=== PATIENT | female | born 1945 | race African-American/Black ===

== ENCOUNTER 2016-03-01 11:12 | Emergency (ER) | payer MEDICARE, OTHER ==
[2016-03-01 11:28] VITALS: RESP 18; TEMP 97
--- NOTE | 2016-03-01 11:52 | ED ---
General Adult HPI - General Chief complaint: Neck Pain/Injury Stated complaint: MUSCLE SPASMS FROM NECK TO FOREHEAD Time Seen by Provider: 03/01/16 11:30 Source: patient, RN notes reviewed, old records reviewed Mode of arrival: ambulatory - History of Present Illness Initial comments: Chief complaint history of present illness 70-year-old female here with request for refill of her tramadol and Soma. Patient has had protocol his left side of the neck for approximately 6 or 7 weeks. Her family physician is unavailable for refills. No new injury or pain. - Related Data Home Medications Medication Instructions Recorded Confirmed DULoxetine HCL [Cymbalta] 60 mg PO DAILY 08/28/13 05/27/15 Cyclobenzaprine [Flexeril] 5 mg PO TID 09/24/13 05/27/15 HYDROcodone/APAP 10-325MG [[place] 1 tab PO Q6H PRN 05/27/15 05/27/15 10-325] PARoxetine HCL [Paxil] 20 mg PO DAILY 05/27/15 05/27/15 QUEtiapine [SEROquel] 50 mg PO HS PRN 05/27/15 05/27/15 Previous Rx's Medication Instructions Recorded clonazePAM [KlonoPIN] 1 mg PO BID #14 tab 02/08/15 traMADol HCl [Ultram] 50 mg PO Q4H PRN #20 tab 05/07/15 Acetaminophen Tab [Tylenol Tab] 650 mg PO Q6H PRN #20 tablet 05/27/15 traMADol HCl [Ultram] 50 mg PO Q8HR PRN #10 tab 05/27/15 Carisoprodol [Soma] 350 mg PO BID #20 tablet 03/01/16 traMADol HCl [Ultram] 50 mg PO Q6HR PRN #20 tab 03/01/16 Allergies Allergy/AdvReac Type Severity Reaction Status Date / Time iodine Allergy Unknown Verified 03/01/16 11:28 shellfish derived [Shellfish] Allergy Unknown Verified 03/01/16 11:28 Review of Systems ROS Statement: Those systems with pertinent positive or pertinent negative responses have been documented in the HPI. Review of systems no headache or visual acuity changes. The patient has discomfort along the left trapezius muscle. No chest pain no shortness of breath no GI/ problems no neuro deficits. All systems were otherwise reviewed. Past medical problems significant for torticollis for the past 6-8 weeks. Also GERD, osteoarthritis, chronic pain. The patient had a bowel resection and hernia repair and hemorrhoidectomy. Family history father had throat cancer. Patient has ALLERGIES to iodine and shellfish. She does smoke rarely, denies alcohol use. ROS Other: All systems not noted in ROS Statement are negative. Past Medical History Past Medical History: GERD/Reflux, Osteoarthritis (OA) Additional Past Medical History / Comment(s): chronic pain, hemerrhoids, gastric ulcer. History of Any Multi-Drug Resistant Organisms: None Reported Past Surgical History: Bowel Resection, Hernia Repair Additional Past Surgical History / Comment(s): hemerrhoidectomy Past Psychological History: Anxiety, Depression Smoking Status: Current every day smoker Past Alcohol Use History: Occasional Past Drug Use History: None Reported General Exam - General Exam Comments Initial Comments: General: The patient is awake and alert, complaining of discomfort to the left side of her neck, ongoing 6-8 weeks. Diagnosis torticollis by her family physician. Vital signs show temperature 97.0 pulse 94 respiratory rate 18 pulse ox 99% room air blood pressure 139/59. Mildly elevated systolic noted the patient will be following up with her family physician once his office opens again. Eye: Pupils are equal, extra-ocular movements are intact; there is normal conjunctiva bilaterally. No signs of icterus. Ears, nose, mouth and throat: There are moist mucous membranes . Neck: Left-sided musculoskeletal discomfort. Torticollis. Discomfort increases when she looks hard to the left. No palpable lymphadenopathy no masses or rash. Cardiovascular: There is a regular rate and rhythm. No murmur, rub or gallop is appreciated. Respiratory: Lungs are clear to auscultation, respirations are non-labored, breath sounds are equal. No wheezes, stridor, rales, or rhonchi. Gastrointestinal: Soft, non-distended, non-tender abdomen without masses or organomegaly noted. There is no rebound or guarding present. No CVA tenderness. Bowel sounds are unremarkable. Patient is lactose intolerant Back: There is no tenderness to palpation in the midline. There is no obvious deformity. No rashes noted. Musculoskeletal: Normal ROM, no tenderness, There is no pedal edema. There is no calf tenderness or swelling. Neurological: No neuro deficits. Denies difficulty walking no weakness. Skin: No rashes. Course Vital Signs 03/01/16 11:23 Temperature 97 F L Pulse Rate 94 Respiratory 18 Rate Blood Pressure 139/59 O2 Sat by Pulse 99 Oximetry Medical Decision Making - Medical Decision Making Medical decision-making. The patient will be treated with tramadol and Soma and advised to follow-up with family physician. Advised to use warm compress on the neck for relief of spasms. Return emergency room as needed Disposition Clinical Impression: Cervical muscle strain Disposition: HOME SELF-CARE Condition: Fair Instructions: Cervical Strain (ED) Additional Instructions: Take medications as directed, follow-up family physician, use warm compress on area discomfort. Return as needed Prescriptions: Carisoprodol [Soma] 350 mg PO BID #20 tablet traMADol HCl [Ultram] 50 mg PO Q6HR PRN #20 tab PRN Reason: Pain Time of Disposition: 11:52
[2016-03-01 12:11] VITALS: BP 129/68; PULSE 92
== END 2016-03-01 12:00 | disposition home or self-care (01) ==
LOC: EC 11:12
DX: S16.1XXA Strain of muscle, fascia and tendon at neck level, initial encounter (principal); X58.XXXA Exposure to other specified factors, initial encounter; M43.6 Torticollis; Z79.899 Other long term (current) drug therapy; Z88.8 Allergy status to other drugs, medicaments and biological substances; Z91.013 Allergy to seafood; F17.200 Nicotine dependence, unspecified, uncomplicated; M19.90 Unspecified osteoarthritis, unspecified site; G89.29 Other chronic pain; F41.9 Anxiety disorder, unspecified; F32.9 Major depressive disorder, single episode, unspecified
CPT/HCPCS: 99283

== ENCOUNTER 2016-03-14 12:09 | Emergency (ER) | payer MEDICARE, OTHER ==
--- NOTE | 2016-03-14 12:49 | ED ---
Neck Injury/Pain HPI - General Chief Complaint: Neck Pain/Injury Stated Complaint: neck pain Time Seen by Provider: 03/14/16 12:38 Mode of arrival: ambulatory Limitations: no limitations - History of Present Illness Initial Comments: 70-year-old female complains of pain in her neck for the last 2 weeks, and reviewing her ER note from earlier this month as stated for 6-7 weeks prior to that. She's been on Soma and tramadol. She states she's had no relief. Hurts to bend her neck forward. No focal numbness or weakness. No recalled injury. She just woke up with it one morning. She has no nausea no vomiting no fever chills. States she has been in generally good health. - Related Data Home Medications Medication Instructions Recorded Confirmed DULoxetine HCL [Cymbalta] 60 mg PO DAILY 08/28/13 03/14/16 HYDROcodone/APAP 10-325MG [[place] 1 tab PO Q6H PRN 05/27/15 03/14/16 10-325] QUEtiapine [SEROquel] 50 mg PO HS PRN 05/27/15 03/14/16 Previous Rx's Medication Instructions Recorded clonazePAM [KlonoPIN] 1 mg PO BID #14 tab 02/08/15 Acetaminophen Tab [Tylenol Tab] 650 mg PO Q6H PRN #20 tablet 05/27/15 Carisoprodol [Soma] 350 mg PO BID #20 tablet 03/01/16 traMADol HCl [Ultram] 50 mg PO Q6HR PRN #20 tab 03/01/16 Carisoprodol [Soma] 350 mg PO TID #21 tablet 03/14/16 Dexamethasone 0.75 mg PO DIRECTED #18 tab 03/14/16 Allergies Allergy/AdvReac Type Severity Reaction Status Date / Time iodine Allergy Unknown Verified 03/14/16 12:17 shellfish derived [Shellfish] Allergy Unknown Verified 03/14/16 12:17 Review of Systems ROS Statement: Those systems with pertinent positive or pertinent negative responses have been documented in the HPI. ROS Other: All systems not noted in ROS Statement are negative. Constitutional: Denies: fever, chills, weakness Eyes: Denies: eye discharge ENT: Denies: ear pain, throat pain Respiratory: Denies: cough Cardiovascular: Denies: chest pain Gastrointestinal: Denies: nausea, vomiting Genitourinary: Denies: urgency, dysuria, frequency Musculoskeletal: Denies: joint swelling Skin: Denies: rash Neurological: Denies: headache Psychiatric: Denies: anxiety, depression Hematological/Lymphatic: Denies: easy bleeding, easy bruising Past Medical History Past Medical History: GERD/Reflux, Osteoarthritis (OA) Additional Past Medical History / Comment(s): chronic pain, hemerrhoids, gastric ulcer. History of Any Multi-Drug Resistant Organisms: None Reported Past Surgical History: Bowel Resection, Hernia Repair Additional Past Surgical History / Comment(s): hemerrhoidectomy Past Psychological History: Anxiety, Depression Smoking Status: Current some day smoker Past Alcohol Use History: Occasional Past Drug Use History: None Reported General Exam Limitations: no limitations Head exam: Present: atraumatic Eye exam: Present: normal appearance, PERRL, EOMI. Absent: scleral icterus ENT exam: Present: normal oropharynx, mucous membranes moist, TM's normal bilaterally Neck exam: Present: tenderness, full ROM (Pain on forward bending less pain on straightening) Respiratory exam: Present: normal lung sounds bilaterally Cardiovascular Exam: Present: normal heart sounds Neurological exam: Present: alert, CN II-XII intact Psychiatric exam: Present: normal affect, normal mood Skin exam: Present: warm, dry Course Vital Signs 03/14/16 12:15 Temperature 98.1 F Pulse Rate 78 Respiratory 20 Rate Blood Pressure 117/54 O2 Sat by Pulse 100 Oximetry Medical Decision Making - Medical Decision Making Discussed with patient she would prefer to have a muscle relaxer over pain medicine was used Decadron and suggested she see her primary care doctor for an MRI and perhaps physical therapy. - Radiology Data Radiology results: report reviewed Moderate to advanced spondylitic changes throughout the cervical spine particularly from C4 through C7 levels. There is also degenerative grade 1 anterolisthesis at C7-T1. Overall, findings have progressed from 2012. #2 variable moderate neural foraminal stenosis in the lower cervical spine. Disposition Clinical Impression: Cervical disc disease Disposition: HOME SELF-CARE Condition: Good Instructions: Degenerative Disc Disease (ED) Additional Instructions: Apply heat for half an hour every 4 hours as needed Prescriptions: Carisoprodol [Soma] 350 mg PO TID #21 tablet Dexamethasone 0.75 mg PO DIRECTED #18 tab Time of Disposition: 13:55
--- NOTE | 2016-03-14 13:28 | XR ---
EXAMINATION TYPE: XR cervical spine comp DATE OF EXAM: 03/14/2016 1:14 PM COMPARISON: 02/15/2012 HISTORY: 70-year-old female with left-sided neck pain today TECHNIQUE: 6 views FINDINGS: The predental space widening or prevertebral soft tissue swelling. There is moderate disc/endplate de generative change particularly from C4 through C7 levels with disc interspace narrowing, endplate scl erosis, and endplate spondylosis. Facet and uncovertebral joint arthropathy throughout especially low er lumbar spine area there is redemonstration of grade 1 anterolisthesis at C7-T1 secondary to facet arthropathy. On the left, there is at least moderate bony spondylotic neuroforaminal narrowing at C6-C7 and probab ly also at C7-T1 no there is limited obliquity for assessment. On the right, there is at least modera te bony spondylotic neuroforaminal narrowing at C5-C6, C6-C7, C7-T1. Normal odontoid view. Degenerative changes appear progressed from 2011. IMPRESSION: 1. Moderate to advanced spondylotic change throughout the cervical spine particularly from C4 through C7 levels. There is also degenerative grade 1 anterolisthesis at C7-T1. Overall, findings have progr essed from 2012. 2. Variable moderate neuroforaminal stenoses in the lower cervical spine.
[2016-03-14 14:10] VITALS: BP 159/86; PULSE 76; RESP 18; TEMP 98.4
== END 2016-03-14 14:10 | disposition home or self-care (01) ==
LOC: EC 12:09
DX: M50.920 Unspecified cervical disc disorder, mid-cervical region, unspecified level (principal); M19.90 Unspecified osteoarthritis, unspecified site; F32.9 Major depressive disorder, single episode, unspecified; F41.9 Anxiety disorder, unspecified; F17.200 Nicotine dependence, unspecified, uncomplicated; Z79.899 Other long term (current) drug therapy; Z88.8 Allergy status to other drugs, medicaments and biological substances
CPT/HCPCS: 72050; 99283

== ENCOUNTER 2017-01-25 14:57 | Emergency (ER) | payer MEDICARE, OTHER ==
--- NOTE | 2017-01-25 16:31 | ED ---
ENT HPI - General Chief complaint: ENT Stated complaint: ear ache/sore throat Time Seen by Provider: 01/25/17 15:48 Source: patient, RN notes reviewed Mode of arrival: ambulatory Limitations: no limitations - History of Present Illness Initial comments: This is a 71-year-old female who presents to the emergency department with chief complaint of left ear pain and sore throat. Patient states that her left ear has been throbbing since before Thanksgiving. She states that her throat feels "scratchy." She also complains of chills and lack of energy. She states that she has had a headache which she has been treating with Excedrin Migraine. She denies fevers, congestion, cough, shortness of breath, abdominal pain, nausea or vomiting, diarrhea or constipation, dysuria or hematuria, numbness or tingling, or vision changes. - Related Data Home Medications Medication Instructions Recorded Confirmed DULoxetine HCL [Cymbalta] 60 mg PO HS 08/28/13 12/30/16 HYDROcodone/APAP 10-325MG [[place] 1 tab PO Q6H PRN 05/27/15 12/30/16 10-325] QUEtiapine [SEROquel] 50 mg PO HS 05/27/15 12/30/16 clonazePAM [KlonoPIN] 0.5 mg PO HS 11/15/16 12/30/16 Baclofen [Lioresal] 10 mg PO TID PRN 12/30/16 12/30/16 Previous Rx's Medication Instructions Recorded Lidocaine [Lidoderm 5% Patch] 1 patch TRANSDERM DAILY #7 patch 12/30/16 Ciprofloxacin HCl/Dexameth 4 drops LEFT EAR BID 7 Days 01/25/17 [Ciprodex Otic Suspension] Allergies Allergy/AdvReac Type Severity Reaction Status Date / Time iodine Allergy Unknown Verified 01/25/17 15:05 shellfish derived [Shellfish] Allergy Unknown Verified 01/25/17 15:05 Review of Systems ROS Statement: Those systems with pertinent positive or pertinent negative responses have been documented in the HPI. ROS Other: All systems not noted in ROS Statement are negative. Past Medical History Past Medical History: GERD/Reflux, Osteoarthritis (OA) Additional Past Medical History / Comment(s): chronic pain, hemorrhoids, gastric ulcer. History of Any Multi-Drug Resistant Organisms: None Reported Past Surgical History: Bowel Resection, Hernia Repair Additional Past Surgical History / Comment(s): hemorrhoidectomy Past Psychological History: Anxiety, Depression Smoking Status: Current every day smoker Past Alcohol Use History: None Reported Past Drug Use History: None Reported General Exam - General Exam Comments Initial Comments: General: Awake and alert, well-developed; in no apparent distress. HEENT: Head atraumatic, normocephalic. Pupils are equal, round and reactive to light. Extraocular movements intact. Oropharynx moist without erythema or exudate. Inflammation of left external canal noted. TM difficult to evaluate due to the inflammation. Left tragal tenderness and tenderness with retraction of pinna noted. Right TM is pearly without effusion. Neck: Supple. Normal ROM. Cardiovascular: Regular rate and rhythm. No murmurs, rubs or gallops. Chest symmetrical. Respiratory: Lungs clear to auscultation bilaterally. No wheezes, rales or rhonchi. Normal respiratory effort with no use of accessory muscles. Musculoskeletal: Normal ROM, no tenderness bilateral upper and lower extremities. Ambulating normally. Skin: [place], warm and dry without rashes or lesions. Neurological: Alert and oriented x3. CN II-XII grossly intact. Speech is fluent and answers are appropriate. No focal neuro deficits. Psychiatric: Normal mood and affect. No overt signs of depression or anxiety noted. Limitations: no limitations Course Vital Signs 01/25/17 15:03 Temperature 97.7 F Pulse Rate 98 Respiratory 20 Rate Blood Pressure 112/53 O2 Sat by Pulse 100 Oximetry Medical Decision Making - Medical Decision Making This is a 71-year-old female presents emergency Department chief complaint of sore throat and left ear pain. Left external canal is inflamed. Difficult to assess TM due to the inflammation. Oropharynx is moist without erythema. Vital signs are stable and patient is afebrile. She is in no acute distress. Patient will be discharged home with ear drops to treat otitis externa. Patient is in agreement with plan voices understand. All questions were answered. Disposition Clinical Impression: Otitis externa Disposition: HOME SELF-CARE Condition: Good Instructions: Otitis Externa (ED) Additional Instructions: Please take medications as prescribed. Please follow up with primary care provider within 1-2 days. Return to emergency department if symptoms should worsen or any concerns arise. Prescriptions: Ciprofloxacin HCl/Dexameth [Ciprodex Otic Suspension] 4 drops LEFT EAR BID 7 Days Referrals: Markus Nicole MD [Primary Care Provider] - 1-2 days Time of Disposition: 16:33
[2017-01-25 16:40] VITALS: BP 126/67; PULSE 92; RESP 18; TEMP 97.8
== END 2017-01-25 16:39 | disposition home or self-care (01) ==
LOC: EC 14:57
DX: H60.92 Unspecified otitis externa, left ear (principal); F17.200 Nicotine dependence, unspecified, uncomplicated; F32.9 Major depressive disorder, single episode, unspecified; F41.9 Anxiety disorder, unspecified; Z91.013 Allergy to seafood; Z91.048 Other nonmedicinal substance allergy status; Z79.899 Other long term (current) drug therapy
CPT/HCPCS: 99282

== ENCOUNTER 2017-01-30 09:17 | Emergency (ER) | payer MEDICARE, OTHER ==
[2017-01-30 09:22] VITALS: TEMP 97
[2017-01-30] MEDS ORDERED: traMADol 50 MG TAB PO STA (09:54)
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
[2017-01-30 11:02] VITALS: BP 136/62; PULSE 82; RESP 16
== END 2017-01-30 11:02 | disposition home or self-care (01) ==
LOC: EC 09:17
DX: S52.502A Unspecified fracture of the lower end of left radius, initial encounter for closed fracture (principal); K21.9 Gastro-esophageal reflux disease without esophagitis; M19.90 Unspecified osteoarthritis, unspecified site; F32.9 Major depressive disorder, single episode, unspecified; F41.9 Anxiety disorder, unspecified; F17.200 Nicotine dependence, unspecified, uncomplicated; Z79.899 Other long term (current) drug therapy; Z88.8 Allergy status to other drugs, medicaments and biological substances; Z91.013 Allergy to seafood; W22.8XXA Striking against or struck by other objects, initial encounter
CPT/HCPCS: 29125; 99283

== ENCOUNTER 2017-07-25 17:16 | Emergency (ER) | payer MEDICARE, OTHER ==
[2017-07-25 17:25] VITALS: PULSE 82; RESP 16; TEMP 97.1
--- NOTE | 2017-07-25 17:28 | ED ---
General Adult HPI - General Chief complaint: Abdominal Pain Stated complaint: hemorrhoid Time Seen by Provider: 07/25/17 17:21 Source: patient, EMS, RN notes reviewed Mode of arrival: EMS Limitations: no limitations - History of Present Illness Initial comments: This is a 72-year-old female who presents to the emergency department with chief complaint hemorrhoids. Patient states that she has a history of hemorrhoids. She states that she was taught how to reinsert them back into her rectum when they fall out. She states that yesterday she had a normal bowel movement but that her hemorrhoids fell out. She states this is the first time they have fallen out since March. She states she was able to reduce it manually. She states that today they fell out again while trying to have a bowel movement. She states that she was passing liquid stool and a pinkish color. Denies any active bleeding. She reports some rectal pressure. She states that she took Colace yesterday. Denies nausea or vomiting, diarrhea or constipation, fevers or chills, chest pain or shortness of breath. Patient reports that she also has a headache. She states that she took Motrin this morning and it helped. - Related Data Home Medications Medication Instructions Recorded Confirmed HYDROcodone/APAP 10-325MG [[place] 1 tab PO Q6H PRN 05/27/15 02/21/17 10-325] QUEtiapine [SEROquel] 50 mg PO HS 05/27/15 02/21/17 clonazePAM [KlonoPIN] 0.5 mg PO BID PRN 11/15/16 02/21/17 DULoxetine HCL [Cymbalta] 60 mg PO HS 01/30/17 02/21/17 Gabapentin [Neurontin] 300 mg PO BID 01/30/17 02/21/17 Omeprazole [PriLOSEC] 20 mg PO DAILY 01/30/17 02/21/17 Allergies Allergy/AdvReac Type Severity Reaction Status Date / Time iodine Allergy Anaphylaxis Verified 02/21/17 08:49 shellfish derived [Shellfish] Allergy Anaphylaxis Verified 02/21/17 08:49 Review of Systems ROS Statement: Those systems with pertinent positive or pertinent negative responses have been documented in the HPI. ROS Other: All systems not noted in ROS Statement are negative. Past Medical History Past Medical History: GERD/Reflux, Osteoarthritis (OA) Additional Past Medical History / Comment(s): chronic pain, hemorrhoids, gastric ulcer. History of Any Multi-Drug Resistant Organisms: None Reported Past Surgical History: Bowel Resection, Hernia Repair Additional Past Surgical History / Comment(s): hemorrhoidectomy Past Psychological History: Anxiety, Depression Smoking Status: Current every day smoker Past Alcohol Use History: None Reported Past Drug Use History: None Reported General Exam - General Exam Comments Initial Comments: General: Awake and alert, well-developed; in no apparent distress. HEENT: Head atraumatic, normocephalic. Pupils are equal, round and reactive to light. Extraocular movements intact. Oropharynx moist without erythema or exudate. Neck: Supple. Normal ROM. Cardiovascular: Regular rate and rhythm. No murmurs, rubs or gallops. Chest symmetrical. Respiratory: Lungs clear to auscultation bilaterally. No wheezes, rales or rhonchi. Normal respiratory effort with no use of accessory muscles. Abdomen: Soft, non-tender, non-distended. No rigidity, rebound or guarding. Normal bowel sounds in all 4 quadrants. Musculoskeletal: Normal ROM, no tenderness bilateral upper and lower extremities. Skin: [place], warm and dry without rashes or lesions. Neurological: Alert and oriented x3. CN II-XII grossly intact. Speech is fluent and answers are appropriate. No focal neuro deficits. Psychiatric: Normal mood and affect. No overt signs of depression or anxiety noted. Limitations: no limitations Rectal exam: Present: normal rectal tone, hemorrhoids (likely internal. no thrombosis or firmness noted. no active bleeding.), other (no rectal prolapse ) Course Vital Signs 07/25/17 17:20 Temperature 97.1 F L Pulse Rate 82 Respiratory 16 Rate Blood Pressure 149/76 O2 Sat by Pulse 98 Oximetry Medical Decision Making - Medical Decision Making This is a 72-year-old female presents to the emergency department with chief complaint hemorrhoids. Patient has been dealing with hemorrhoids for a while now. She states that yesterday and today followed while trying to have a bowel movement. She states that she was taught how to manually reduce them. She states that she was able to successfully reduce them. She states she is concerned because they have not fallen out since March. On physical examination, no thrombosed hemorrhoids are noted. Hemorrhoids are already reduced by patient. Recommended taking Colace daily and applying witch marybel. Recommended high-fiber foods and drinking lots of water. Patient will be given contact information for on-call surgeon. She is in agreement with plan and voices understanding. All questions answered. She'll be discharged home at this time. She is in no acute distress. Disposition Clinical Impression: Hemorrhoid Disposition: HOME SELF-CARE Condition: Good Instructions: Hemorrhoids (ED) Additional Instructions: Please take Colace daily. Please increase water intake and eat high fiber foods. Please follow up with Dr. Patel, general surgeon. Please follow up with primary care provider within 1-2 days. Return to emergency department if symptoms should worsen or any concerns arise. Is patient prescribed a controlled substance at d/c from ED?: No Referrals: Markus Nicole MD [Primary Care Provider] - 1-2 days Time of Disposition: 17:44
[2017-07-25] MEDS ORDERED: IBUPROFEN 600 MG TAB PO STA (17:39)
[2017-07-25] MEDS ORDERED: traMADol 50 MG TAB PO STA (18:16)
[2017-07-25 18:53] VITALS: BP 140/78
== END 2017-07-25 18:37 | disposition home or self-care (01) ==
LOC: EC 17:16
DX: K64.9 Unspecified hemorrhoids (principal); R51 Headache; K21.9 Gastro-esophageal reflux disease without esophagitis; M19.90 Unspecified osteoarthritis, unspecified site; F41.9 Anxiety disorder, unspecified; F32.9 Major depressive disorder, single episode, unspecified; F17.200 Nicotine dependence, unspecified, uncomplicated; Z90.49 Acquired absence of other specified parts of digestive tract; Z98.890 Other specified postprocedural states; Z79.899 Other long term (current) drug therapy; Z91.013 Allergy to seafood; Z91.048 Other nonmedicinal substance allergy status
CPT/HCPCS: 99284

== ENCOUNTER 2017-12-31 08:48 | Emergency (ER) | payer MEDICARE, OTHER ==
[2017-12-31 08:54] VITALS: BP 120/58; PULSE 94; RESP 18; TEMP 98.8
--- NOTE | 2017-12-31 09:19 | ED ---
URI HPI - General Chief Complaint: Upper Respiratory Infection Stated Complaint: Congestion Time Seen by Provider: 12/31/17 08:59 Source: patient, RN notes reviewed Mode of arrival: ambulatory Limitations: no limitations - History of Present Illness Initial Comments: 72-year-old female presents emergency Department with chief complaint of left ear pain cough and congestion. Patient states that she's had some discomfort in her right ear for a couple weeks after riding a bus back from [place]. Patient states that she felt that the cold air blowing on her ear bothered it. Patient states that she also has had some cough and congestion. Patient states that she put some hydrogen peroxide in her left ear and put some paper in her ear she states that she may have left and or fell out. Patient denies any pain behind the ear denies headache, dizziness, neck pain. Patient denies any drainage from her ear. Patient states she just feels plugged. Patient has sore throat, nasal congestion. She does have a cough and noticed some wheezing. Patient states she does have COPD. Patient denies any chest pain, nausea vomiting diarrhea, constipation. - Related Data Home Medications Medication Instructions Recorded Confirmed HYDROcodone/APAP 10-325MG [[place] 1 tab PO Q6H PRN 05/27/15 02/21/17 10-325] QUEtiapine [SEROquel] 50 mg PO HS 05/27/15 02/21/17 clonazePAM [KlonoPIN] 0.5 mg PO BID PRN 11/15/16 02/21/17 DULoxetine HCL [Cymbalta] 60 mg PO HS 01/30/17 02/21/17 Gabapentin [Neurontin] 300 mg PO BID 01/30/17 02/21/17 Omeprazole [PriLOSEC] 20 mg PO DAILY 01/30/17 02/21/17 Previous Rx's Medication Instructions Recorded Azithromycin [Zithromax Z-pack] 0 mg PO DIRECTED #1 pack 12/31/17 Ofloxacin 0.3% Otic Soln [Floxin 10 drops LEFT EAR BID #10 ml 12/31/17 0.3% Otic Soln] predniSONE 50 mg PO DAILY #5 tab 12/31/17 Allergies Allergy/AdvReac Type Severity Reaction Status Date / Time iodine Allergy Anaphylaxis Verified 12/31/17 09:31 shellfish derived [Shellfish] Allergy Anaphylaxis Verified 12/31/17 09:31 Review of Systems ROS Statement: Those systems with pertinent positive or pertinent negative responses have been documented in the HPI. ROS Other: All systems not noted in ROS Statement are negative. Past Medical History Past Medical History: GERD/Reflux, Osteoarthritis (OA) Additional Past Medical History / Comment(s): chronic pain, hemorrhoids, gastric ulcer. History of Any Multi-Drug Resistant Organisms: None Reported Past Surgical History: Bowel Resection, Hernia Repair Additional Past Surgical History / Comment(s): hemorrhoidectomy Past Psychological History: Anxiety, Depression Smoking Status: Current every day smoker Past Alcohol Use History: None Reported Past Drug Use History: None Reported General Exam Limitations: no limitations General appearance: alert, in no apparent distress Head exam: Present: atraumatic, normocephalic, normal inspection Eye exam: Present: normal appearance, PERRL, EOMI. Absent: scleral icterus, conjunctival injection, periorbital swelling ENT exam: Present: normal oropharynx, mucous membranes moist, TM's normal bilaterally, normal external ear exam. Absent: normal exam, other (Mild erythema of the left EAC, no mastoid tenderness) Neck exam: Present: normal inspection, full ROM. Absent: tenderness, meningismus, lymphadenopathy Respiratory exam: Present: wheezes (faint). Absent: normal lung sounds bilaterally, respiratory distress, rales, rhonchi, stridor Cardiovascular Exam: Present: regular rate, normal rhythm, normal heart sounds. Absent: systolic murmur, diastolic murmur, rubs, gallop, clicks GI/Abdominal exam: Present: soft, normal bowel sounds. Absent: distended, tenderness, guarding, rebound, rigid Back exam: Absent: CVA tenderness (R), CVA tenderness (L) Neurological exam: Present: alert, oriented X3, CN II-XII intact Skin exam: Present: warm, dry, intact, normal color. Absent: rash Course Vital Signs 12/31/17 08:51 Temperature 98.8 F Pulse Rate 94 Respiratory 18 Rate Blood Pressure 120/58 O2 Sat by Pulse 97 Oximetry Medical Decision Making - Medical Decision Making 72-year-old female presented for multiple complaints. Patient has a mild erythema of the left EAC. She does not have any mastoid tenderness no concern for mastoiditis. Patient will be given ofloxacin eardrops and was placed on azithromycin along with prednisone for her cough and chest congestion. She does have some underlying COPD and does have mild exacerbation. Patient will have follow-up in 1-2 days return for any worsening symptoms. Disposition Clinical Impression: Otitis externa, Acute bronchitis Disposition: HOME SELF-CARE Condition: Stable Instructions: Upper Respiratory Infection (ED) Additional Instructions: Please return to the Emergency Department if symptoms worsen or any other concerns. Prescriptions: Azithromycin [Zithromax Z-pack] 0 mg PO DIRECTED #1 pack Ofloxacin 0.3% Otic Soln [Floxin 0.3% Otic Soln] 10 drops LEFT EAR BID #10 ml predniSONE 50 mg PO DAILY #5 tab Is patient prescribed a controlled substance at d/c from ED?: No Referrals: Markus Nicole MD [Primary Care Provider] - 1-2 days Time of Disposition: 09:42
--- NOTE | 2017-12-31 09:36 | XR ---
EXAMINATION TYPE: XR chest 2V DATE OF EXAM: 12/31/2017 COMPARISON: 11/15/2016 INDICATION: Cough, pain TECHNIQUE: Frontal and lateral views of the chest are obtained. FINDINGS: The heart size is normal. The pulmonary vasculature is normal. The lungs are clear. IMPRESSION: 1. No acute pulmonary process.
[2017-12-31] MEDS ORDERED: traMADol 50 MG STARTER PACK 3 TAB BTL PO STA (10:08)
== END 2017-12-31 10:20 | disposition home or self-care (01) ==
LOC: EC 08:48
DX: J44.0 Chronic obstructive pulmonary disease with (acute) lower respiratory infection (principal); J44.1 Chronic obstructive pulmonary disease with (acute) exacerbation; J20.9 Acute bronchitis, unspecified; H60.92 Unspecified otitis externa, left ear; K21.9 Gastro-esophageal reflux disease without esophagitis; F32.9 Major depressive disorder, single episode, unspecified; F41.9 Anxiety disorder, unspecified; F17.200 Nicotine dependence, unspecified, uncomplicated; Z91.013 Allergy to seafood; Z91.048 Other nonmedicinal substance allergy status; Z79.899 Other long term (current) drug therapy
CPT/HCPCS: 71046; 99284

== ENCOUNTER → 2017-12-31 | Outpatient (CLI) | payer MEDICARE, OTHER ==
--- NOTE | 2018-01-03 12:13 | MM ---
Reason for exam: screening (asymptomatic). Last mammogram was performed 1 year ago. History: Patient is postmenopausal. Family history of breast cancer in sister. Benign excisional biopsy of the left breast, 1998. Physical Findings: A clinical breast exam by your physician is recommended on an annual basis and results should be correlated with mammographic findings. MG 3D Screening Mammo W/Cad Bilateral CC and MLO view(s) were taken. Prior study comparison: December 30, 2016, left breast MG 3d work up w/cad LT. December 24, 2016, bilateral MG 3d screening mammo w/cad. The breast tissue is heterogeneously dense. This may lower the sensitivity of mammography. No significant changes when compared with prior studies. ASSESSMENT: Benign, BI-RAD 2 RECOMMENDATION: Routine screening mammogram of both breasts in 1 year.
== END | disposition home or self-care (01) ==
LOC: RADMAMWWP 08:28
PROVIDERS: ATTEND Family Medicine
DX: Z12.31 Encounter for screening mammogram for malignant neoplasm of breast (principal)
CPT/HCPCS: 77063; 77067

== ENCOUNTER 2018-04-27 22:52 | Emergency (ER) | payer MEDICARE, OTHER ==
[2018-04-27 23:05] VITALS: RESP 20
[2018-04-27] MEDS ORDERED: HYDROcodone/APAP 10-325MG 1 EACH TAB PO ONE (23:16)
--- NOTE | 2018-04-28 | CT ---
EXAM: CT Head Without Intravenous Contrast CLINICAL HISTORY: ITS.REASON CT Reason: Pain TECHNIQUE: Axial computed tomography images of the head/brain without intravenous contrast. CTDI is 45 mGy and DLP is 1079 mGy-cm. This CT exam was performed using one or more of the following dose reduction techniques: automated exposure control, adjustment of the mA and/or kV according to patient size, and/or use of iterative reconstruction technique. COMPARISON: No relevant prior studies available. FINDINGS: Brain: No hemorrhage. No edema. Ventricles: Unremarkable. No ventriculomegaly. Bones/joints: No acute fracture. Soft tissues: Unremarkable. Sinuses: No fluid levels. Mastoid air cells: Unremarkable as visualized. No mastoid effusion. IMPRESSION: No acute intracranial findings EXAM: CT Cervical Spine Without Intravenous Contrast CLINICAL HISTORY: ITS.REASON CT Reason: Pain TECHNIQUE: Axial computed tomography images of the cervical spine without intravenous contrast. This CT exam was performed using one or more of the following dose reduction techniques: automated exposure control, adjustment of the mA and/or kV according to patient size, and/or use of iterative reconstruction technique. COMPARISON: No relevant prior studies available. FINDINGS: Vertebrae: No acute fracture. Discs/spinal canal/neural foramina: No suspicious findings. Soft tissues: Unremarkable. IMPRESSION: No acute findings.
--- NOTE | 2018-04-28 00:13 | XR ---
EXAM: XR Lumbar Spine, 2 or 3 Views CLINICAL HISTORY: ITS.REASON XR Reason: Pain TECHNIQUE: Frontal and lateral views of the lumbar spine. COMPARISON: No relevant prior studies available. FINDINGS: Vertebrae: Unremarkable. No acute fracture. Normal alignment. Disc spaces: No suspicious findings. No significant narrowing. Soft tissues: Unremarkable. IMPRESSION: Normal lumbar spine x-rays.
[2018-04-28] MEDS ORDERED: METHOCARBAMOL 500 MG TAB PO STA (00:50)
--- NOTE | 2018-04-28 01:09 | ED ---
Fall HPI - General Chief Complaint: Fall Stated Complaint: fall Time Seen by Provider: 04/27/18 22:58 Source: patient Mode of arrival: EMS - History of Present Illness Initial Comments: Is a 73-year-old female with a history of chronic neck and lower back pain who presents emergency department for posterior head pain, neck pain, and lower back pain. The patient states that yesterday around 11 PM a dog jumped up and hit her in the face with its cough. It did not hurt to the ground and she didn' t hit the back of her head and neck. She states that she did not lose consciousness per she was able to get up and ambulate and was in real to her throughout the day today with her walker. She was taking her [place] at home which seemed to relieve her symptoms however she ran out this evening and the pain returned so she decided come to the department. She denies any numbness, tingling, or weakness in her upper or lower extremities. She denies any severe headache however does admit to some posterior head pain and right jaw pain. She denies any extremity injuries. No chest pain or shortness of breath. No vision changes. No other acute complaints. - Related Data Home Medications Medication Instructions Recorded Confirmed HYDROcodone/APAP 10-325MG [[place] 1 tab PO Q6H PRN 05/27/15 04/27/18 10-325] QUEtiapine [SEROquel] 50 mg PO HS 05/27/15 04/27/18 clonazePAM [KlonoPIN] 0.5 mg PO BID PRN 11/15/16 04/27/18 DULoxetine HCL [Cymbalta] 60 mg PO HS 01/30/17 04/27/18 Gabapentin [Neurontin] 300 mg PO BID 01/30/17 04/27/18 Omeprazole [PriLOSEC] 20 mg PO DAILY 01/30/17 04/27/18 Previous Rx's Medication Instructions Recorded HYDROcodone/APAP 5-325MG [[place] 1 tab PO Q6HR PRN 3 Days #8 tab 04/28/18 5-325] Methocarbamol [Robaxin] 500 mg PO QID PRN #15 tab 04/28/18 Allergies Allergy/AdvReac Type Severity Reaction Status Date / Time iodine Allergy Anaphylaxis Verified 04/27/18 23:39 shellfish derived [Shellfish] Allergy Anaphylaxis Verified 04/27/18 23:39 Review of Systems ROS Statement: Those systems with pertinent positive or pertinent negative responses have been documented in the HPI. ROS Other: All systems not noted in ROS Statement are negative. Past Medical History Past Medical History: COPD, GERD/Reflux, Osteoarthritis (OA) Additional Past Medical History / Comment(s): chronic pain, hemorrhoids, gastric ulcer. History of Any Multi-Drug Resistant Organisms: None Reported Past Surgical History: Bowel Resection, Hernia Repair Additional Past Surgical History / Comment(s): hemorrhoidectomy Past Psychological History: Anxiety, Depression Smoking Status: Current every day smoker Past Alcohol Use History: None Reported Past Drug Use History: None Reported General Exam - General Exam Comments Initial Comments: Constitutional: Awake alert Appears comfortable Head: Normocephalic atraumatic Eyes: no conjunctival injection No scleral icterus EOMI, pupils are 4 mm and reactive bilaterally Neck: No JVD Supple, no midline tenderness on examination, the patient has full range of motion actively Heart: Regular rate rhythm normal S1-S2 no murmurs Lungs: Clear to auscultation bilaterally No wheezing No rales Abdomen: Soft nondistended nontender Extremities: Non edematous DP pulses intact Radial pulses intact, patient has tenderness to her lumbar spine and paralumbar region Neuro: A&Ox3, 5 out of 5 strength in bilateral lower extremities and upper extremities, sensation intact to light touch in all extremities No focal neurologic deficits Psych: Appropriate mood and affect Limitations: no limitations Course Vital Signs 04/27/18 22:59 Temperature 97.9 F Pulse Rate 63 Respiratory 20 Rate Blood Pressure 119/55 O2 Sat by Pulse 97 Oximetry Medical Decision Making - Medical Decision Making This is a 73-year-old female who presents emergency department for posterior head pain, neck pain, lower back pain. She had CT of the head and neck that were unremarkable. X-ray of her lumbar spine was unremarkable. Patient was given [place] 10 mg which improved her symptoms however she still had some discomfort and thus a Robaxin was given. The patient had relief after this. I discussed the results with the patient explained that she likely irritated some old injuries in her spine. I did tell her that since she is not able to get a refill on her [place] until 2 days from now that I would give her enough to get her to her primary doctor's appointment in 2 days. I also gave her Robaxin. I do suspect that there is some drug-seeking behavior on the patient's behalf. She does inquire about Xanax and Klonopin quite often and was asking about increasing the dose of her [place]. I will leave that to the discretion of her primary doctor. Told her that she can return if she had worsening headache, or developed any weakness, numbness, or tingling in her extremities. Or any other acute complaints. Disposition Clinical Impression: Fall, Chronic pain Disposition: HOME SELF-CARE Condition: Stable Instructions (If sedation given, give patient instructions): Fall Prevention for Older Adults (ED) Prescriptions: HYDROcodone/APAP 5-325MG [[place] 5-325] 1 tab PO Q6HR PRN 3 Days #8 tab PRN Reason: Pain Methocarbamol [Robaxin] 500 mg PO QID PRN #15 tab PRN Reason: Muscle Spasms Is patient prescribed a controlled substance at d/c from ED?: Yes When asked, does pt state using other controlled substances?: Yes If prescribed controlled substance>3 days was MAPS reviewed?: Prescribed <3 Days If opioid is for acute pain is fill amount 7 days or less?: Yes Referrals: Markus Nicole MD [Primary Care Provider] - 1-2 days
[2018-04-28 01:54] VITALS: BP 115/61; PULSE 67; TEMP 97.7
== END 2018-04-28 02:02 | disposition home or self-care (01) ==
LOC: EC 22:52
DX: M54.5 Low back pain (principal); R51 Headache; M54.2 Cervicalgia; G89.29 Other chronic pain; F17.200 Nicotine dependence, unspecified, uncomplicated; K21.9 Gastro-esophageal reflux disease without esophagitis; F32.9 Major depressive disorder, single episode, unspecified; F41.9 Anxiety disorder, unspecified; Z79.899 Other long term (current) drug therapy; Z88.8 Allergy status to other drugs, medicaments and biological substances; Z91.013 Allergy to seafood; W19.XXXA Unspecified fall, initial encounter; Y92.009 Unspecified place in unspecified non-institutional (private) residence as the place of occurrence of the external cause
CPT/HCPCS: 70450; 72100; 72125; 99284

== ENCOUNTER 2018-07-11 14:27 | Inpatient (IN) | payer MEDICARE, OTHER ==
[2018-07-11] MEDS ORDERED: KETOROLAC 30 MG/ML 1 ML VIAL IVP STA (14:56)
[2018-07-11] MEDS ORDERED: SODIUM CHLORIDE 0.9% 500 ML 500 ML IV STA (14:56)
--- NOTE | 2018-07-11 15:02 | ED ---
General Adult HPI - General Chief complaint: Abdominal Pain Stated complaint: Side Pain Time Seen by Provider: 07/11/18 14:40 Source: patient, RN notes reviewed Mode of arrival: ambulatory - History of Present Illness Initial comments: 73-year-old female With a past medical history of chronic pain, hemorrhoids, COPD, GERD, gastric ulcer, bowel resection, hernia repair presents to the emergency department for chief complaint of right sided abdominal pain 4 days. Patient states it is a sharp pain mostly in the right upper quadrant. States it worsens when she coughs but denies any chest pain or shortness of breath. Denies any pain with breathing. Patient states that she tried to eat breakfast today but this made the pain worsen. Denies nausea or vomiting. Patient denies fevers or chills. Denies any history of gallbladder dysfunction. Patient states she is having normal bowel movements with the last bowel movement being earlier today. Denies hematochezia or melena. Does admit that her appetite has decreased since this pain started.Patient has no other complaints at this time including shortness of breath, chest pain, abdominal pain, nausea or vomiting, headache, or visual changes. - Related Data Home Medications Medication Instructions Recorded Confirmed clonazePAM [KlonoPIN] 0.5 mg PO BID PRN 11/15/16 07/11/18 DULoxetine HCL [Cymbalta] 60 mg PO HS 01/30/17 07/11/18 Gabapentin [Neurontin] 300 mg PO BID 01/30/17 07/11/18 Previous Rx's Medication Instructions Recorded HYDROcodone/APAP 5-325MG [[place] 1 tab PO Q6HR PRN 3 Days #8 tab 04/28/18 5-325] Allergies Allergy/AdvReac Type Severity Reaction Status Date / Time iodine Allergy Anaphylaxis Verified 07/11/18 14:43 shellfish derived [Shellfish] Allergy Anaphylaxis Verified 07/11/18 14:43 Review of Systems ROS Statement: Those systems with pertinent positive or pertinent negative responses have been documented in the HPI. ROS Other: All systems not noted in ROS Statement are negative. Past Medical History Past Medical History: COPD, GERD/Reflux, Osteoarthritis (OA) Additional Past Medical History / Comment(s): chronic pain, hemorrhoids, gastric ulcer. History of Any Multi-Drug Resistant Organisms: None Reported Past Surgical History: Bowel Resection, Hernia Repair Additional Past Surgical History / Comment(s): hemorrhoidectomy Past Psychological History: Anxiety, Depression Smoking Status: Current every day smoker Past Alcohol Use History: None Reported Past Drug Use History: None Reported General Exam General appearance: alert, in no apparent distress Head exam: Present: atraumatic, normocephalic, normal inspection Eye exam: Present: normal appearance, PERRL, EOMI. Absent: scleral icterus, conjunctival injection, periorbital swelling ENT exam: Present: normal exam, mucous membranes moist Neck exam: Present: normal inspection, full ROM. Absent: tenderness, meningismus, lymphadenopathy Respiratory exam: Present: normal lung sounds bilaterally. Absent: respiratory distress, wheezes, rales, rhonchi, stridor Cardiovascular Exam: Present: regular rate, normal rhythm, normal heart sounds. Absent: systolic murmur, diastolic murmur, rubs, gallop, clicks GI/Abdominal exam: Present: soft, tenderness (Right upper and lower abdominal t enderness. Tenderness is worse in the right upper quadrant with mild voluntary guarding.), normal bowel sounds. Absent: distended, guarding, rebound, rigid Expanded GI/Abdominal exam: Present: Deleon's sign. Absent: heel tap sign, Rovsing's sign Neurological exam: Present: alert, oriented X3, CN II-XII intact Psychiatric exam: Present: normal affect, normal mood Skin exam: Present: warm, dry, intact, normal color. Absent: rash Course Vital Signs 07/11/18 14:29 Temperature 98.0 F Pulse Rate 78 Respiratory 20 Rate Blood Pressure 155/80 O2 Sat by Pulse 98 Oximetry Medical Decision Making - Medical Decision Making 73-year-old female presents for right upper quadrant pain 4 days. States pain worsened after she ate breakfast today. On exam patient does have tenderness of the right upper quadrant with a positive Deleon sign. No significant abdominal tenderness elsewhere in the abdomen. CBC is unremarkable, white blood cell count is 4.1. CMP does show a calcium of 10.3, an AST of 43, ALP of 140, lipase 320. Bilirubin 0.4. Urine negative. Urine does not show evidence of infection. Ultrasound the right upper quadrant shows no hydronephrosis of the right kidney or masses seen. However there is multiple folds of the gallbladder with probable tumefactive sludge and a dilated common bile duct. Therefore patient will be admitted for further investigation and management. - Lab Data Result diagrams: 07/11/18 15:07 07/11/18 15:07 Lab Results 07/11/18 07/11/18 07/11/18 Range/Units 15:07 15:07 15:07 WBC 4.1 (3.8-10.6) k/uL RBC 4.18 (3.80-5.40) m/uL Hgb 12.2 (11.4-16.0) gm/dL Hct 39.7 (34.0-46.0) % MCV 94.9 (80.0-100.0) fL MCH 29.2 (25.0-35.0) pg MCHC 30.8 L (31.0-37.0) g/dL RDW 15.4 (11.5-15.5) % Plt Count 315 (150-450) k/uL Neutrophils % 42 % Lymphocytes % 42 % Monocytes % 5 % Eosinophils % 5 % Basophils % 1 % Neutrophils # 1.7 (1.3-7.7) k/uL Lymphocytes # 1.8 (1.0-4.8) k/uL Monocytes # 0.2 (0-1.0) k/uL Eosinophils # 0.2 (0-0.7) k/uL Basophils # 0.0 (0-0.2) k/uL PT 10.4 (9.0-12.0) sec INR 1.0 (<1.2) Sodium 143 (137-145) mmol/L Potassium 3.8 (3.5-5.1) mmol/L Chloride 111 H (98-107) mmol/L Carbon Dioxide 23 (22-30) mmol/L Anion Gap 9 mmol/L BUN 8 (7-17) mg/dL Creatinine 0.67 (0.52-1.04) mg/dL Est GFR (CKD-EPI)AfAm >90 (>60 ml/min/1.73 sqM) Est GFR (CKD-EPI)NonAf 87 (>60 ml/min/1.73 sqM) Glucose 75 (74-99) mg/dL Plasma Lactic Acid Maxi (0.7-2.0) mmol/L Calcium 10.3 H (8.4-10.2) mg/dL Total Bilirubin 0.4 (0.2-1.3) mg/dL AST 43 H (14-36) U/L ALT 39 (9-52) U/L Alkaline Phosphatase 140 H (38-126) U/L Total Protein 7.8 (6.3-8.2) g/dL Albumin 4.8 (3.5-5.0) g/dL Amylase 94 (30-110) U/L Lipase 320 H (23-300) U/L Urine Color Urine Appearance (Clear) Urine pH (5.0-8.0) Ur Specific [place] (1.001-1.035) Urine Protein (Negative) Urine Glucose (UA) (Negative) Urine Ketones (Negative) Urine Blood (Negative) Urine Nitrite (Negative) Urine Bilirubin (Negative) Urine Urobilinogen (<2.0) mg/dL Ur Leukocyte Esterase (Negative) Urine RBC (0-5) /hpf Urine WBC (0-5) /hpf Ur Squamous Epith Cells (0-4) /hpf Urine Bacteria (None) /hpf Urine Mucus (None) /hpf 07/11/18 07/11/18 Range/Units 15:07 15:30 WBC (3.8-10.6) k/uL RBC (3.80-5.40) m/uL Hgb (11.4-16.0) gm/dL Hct (34.0-46.0) % MCV (80.0-100.0) fL MCH (25.0-35.0) pg MCHC (31.0-37.0) g/dL RDW (11.5-15.5) % Plt Count (150-450) k/uL Neutrophils % % Lymphocytes % % Monocytes % % Eosinophils % % Basophils % % Neutrophils # (1.3-7.7) k/uL Lymphocytes # (1.0-4.8) k/uL Monocytes # (0-1.0) k/uL Eosinophils # (0-0.7) k/uL Basophils # (0-0.2) k/uL PT (9.0-12.0) sec INR (<1.2) Sodium (137-145) mmol/L Potassium (3.5-5.1) mmol/L Chloride (98-107) mmol/L Carbon Dioxide (22-30) mmol/L Anion Gap mmol/L BUN (7-17) mg/dL Creatinine (0.52-1.04) mg/dL Est GFR (CKD-EPI)AfAm (>60 ml/min/1.73 sqM) Est GFR (CKD-EPI)NonAf (>60 ml/min/1.73 sqM) Glucose (74-99) mg/dL Plasma Lactic Acid Maxi 1.5 (0.7-2.0) mmol/L Calcium (8.4-10.2) mg/dL Total Bilirubin (0.2-1.3) mg/dL AST (14-36) U/L ALT (9-52) U/L Alkaline Phosphatase (38-126) U/L Total Protein (6.3-8.2) g/dL Albumin (3.5-5.0) g/dL Amylase (30-110) U/L Lipase (23-300) U/L Urine Color Yellow Urine Appearance Clear (Clear) Urine pH 5.5 (5.0-8.0) Ur Specific [place] 1.013 (1.001-1.035) Urine Protein Negative (Negative) Urine Glucose (UA) Negative (Negative) Urine Ketones 1+ H (Negative) Urine Blood Trace H (Negative) Urine Nitrite Negative (Negative) Urine Bilirubin Negative (Negative) Urine Urobilinogen <2.0 (<2.0) mg/dL Ur Leukocyte Esterase Negative (Negative) Urine RBC 3 (0-5) /hpf Urine WBC <1 (0-5) /hpf Ur Squamous Epith Cells <1 (0-4) /hpf Urine Bacteria Rare H (None) /hpf Urine Mucus Rare H (None) /hpf Disposition Clinical Impression: Dysfunctional gallbladder, Transaminitis Disposition: ADMITTED IP TO THIS HOSP Condition: Fair Is patient prescribed a controlled substance at d/c from ED?: No Referrals: Markus Nicole MD [Primary Care Provider] - 1-2 days Time of Disposition: 17:00
[2018-07-11 15:18] LABS: Basophils % (A) 1 %; Eosinophils # (A) 0.2 k/uL (0-0.7); Eosinophils % (A) 5 %; HCT 39.7 % (34.0-46.0); HGB 12.2 gm/dL (11.4-16.0); Lymphocytes # (A) 1.8 k/uL (1.0-4.8); Lymphocytes % (A) 42 %; MCH 29.2 pg (25.0-35.0); MCHC 30.8 g/dL (31.0-37.0); MCV 94.9 fL (80.0-100.0); Mean Platelet Volume 6.8; Monocytes # (A) 0.2 k/uL (0-1.0); Monocytes % (A) 5 %; Neutrophils # (A) 1.7 k/uL (1.3-7.7); Neutrophils % (A) 42 %; Platelet Count 315 k/uL (150-450); RBC 4.18 m/uL (3.80-5.40); RDW 15.4 % (11.5-15.5); WBC 4.1 k/uL (3.8-10.6)
[2018-07-11 15:23] LABS: Prothrombin Time 10.4 sec (9.0-12.0)
[2018-07-11 15:28] LABS: ALT 39 U/L (9-52); AST 43 U/L (14-36); Albumin 4.8 g/dL (3.5-5.0); Alkaline Phosphatase 140 U/L (38-126); Amylase 94 U/L (30-110); Anion Gap 9 mmol/L; Blood Urea Nitrogen 8 mg/dL (7-17); Calcium 10.3 mg/dL (8.4-10.2); Carbon Dioxide 23 mmol/L (22-30); Chloride 111 mmol/L (98-107); Glucose 75 mg/dL (74-99); Lipase 320 U/L (23-300); Potassium 3.8 mmol/L (3.5-5.1); Sodium 143 mmol/L (137-145); Total Bilirubin 0.4 mg/dL (0.2-1.3); Total Protein 7.8 g/dL (6.3-8.2)
[2018-07-11 15:54] LABS: Appearance,Urine Clear (Clear); Bacteria,Urine Rare /hpf; Bilirubin,Urine Negative (Negative); Blood,Urine Trace (Negative); Color,Urine Yellow; Glucose,Urine (UA) Negative (Negative); Ketones,Urine 1+ (Negative); Leukocyte Esterase,Urine Negative (Negative); Mucus,Urine Rare /hpf; Nitrite,Urine Negative (Negative); PH, Urine 5.5 (5.0-8.0); Protein,Urine Negative (Negative); RBC,Urine 3 /hpf (0-5); Specific Gravity,Urine 1.013 (1.001-1.035); Squamous Epithelial Cell,Urine <1 /hpf (0-4); Urobilinogen,Urine <2.0 mg/dL (<2.0); WBC,Urine <1 /hpf (0-5)
--- NOTE | 2018-07-11 16:34 | US ---
EXAMINATION TYPE: US abdomen limited DATE OF EXAM: 07/11/2018 COMPARISON: NONE CLINICAL HISTORY: Pain. RUQ pain x 4 days. EXAM MEASUREMENTS: Liver Length: 16.7 cm Gallbladder Wall: 0.19 cm CBD: 0.95 cm Right Kidney: 10.0 x 6.1 x 3.8 cm Pancreas: slightly obscured by gas. duct measures 2.4 mm. Liver: prominent vasculature and ducts. Gallbladder: Hypoechoic internal echoes seen suggestive of sludge. Multiple folds seen. Evidence for sonographic Deleon's sign: No CBD: appears dilated Right Kidney: No hydronephrosis or masses seen There is no ascites evident. IMPRESSION: Limited abdomen ultrasound. Probable tumefactive sludge within the gallbladder. Dilated c ommon bile duct, suggest gastroenterology consult
[2018-07-11] MEDS ORDERED: ONDANSETRON 4 MG/2 ML VIAL IVP PRN (17:00)
[2018-07-11] MEDS ORDERED: NALOXONE 0.4 MG/ML 1 ML VIAL IV PRN (17:00)
[2018-07-11] MEDS: HYDROmorphone 0.5 MG/0.5 ML SYRINGE IVP PRN ×3 (17:26→23:53)
[2018-07-11] MEDS: SODIUM CHLORIDE 0.9% 1,000 ML IV SCH (17:27)
[2018-07-11 20:02] VITALS: BMI 19.1
[2018-07-12] MEDS: SODIUM CHLORIDE 0.9% 1,000 ML IV SCH ×3 (04:21→20:06)
[2018-07-12] MEDS: HYDROmorphone 0.5 MG/0.5 ML SYRINGE IVP PRN ×5 (04:49→18:00)
--- NOTE | 2018-07-12 07:31 | P.HPIM ---
History of Present Illness H&P Date: 07/12/18 Chief Complaint: Right upper quadrant pain This is a history of physical 73-year-old black female with known history of chronic DJD who has for the last 2-3 days complaining of worse right upper quadrant pain. The patient was evaluated yesterday in the emergency room and sh own have significant biliary sludge on ultrasound. She is now admitted for possible cholecystectomy. No significant nausea or vomiting this morning. No hematemesis or hematochezia stated. Review of Systems Constitutional: Denies chills, Denies fever Eyes: denies blurred vision, denies pain Ears, nose, mouth and throat: Denies headache, Denies sore throat Cardiovascular: Denies chest pain, Denies shortness of breath Gastrointestinal: Reports as per HPI, Reports abdominal pain, Reports indigestion Genitourinary: Denies dysuria, Denies hematuria Musculoskeletal: Denies myalgias Past Medical History Past Medical History: COPD, GERD/Reflux, Osteoarthritis (OA) Additional Past Medical History / Comment(s): chronic pain, hemorrhoids, gastric ulcer. History of Any Multi-Drug Resistant Organisms: None Reported Past Surgical History: Bowel Resection, Hernia Repair Additional Past Surgical History / Comment(s): hemorrhoidectomy Past Anesthesia/Blood Transfusion Reactions: No Reported Reaction Past Psychological History: Anxiety, Depression Smoking Status: Current every day smoker Past Alcohol Use History: None Reported Past Drug Use History: None Reported - Past Family History Mother Family Medical History: No Reported History Additional Family Medical History / Comment(s): still living at age of 96 and gets around well. Father Family Medical History: Cancer Additional Family Medical History / Comment(s): lung cancer at age of 75 Medications and Allergies Home Medications Medication Instructions Recorded Confirmed Type clonazePAM [KlonoPIN] 0.5 mg PO BID PRN 11/15/16 07/11/18 History Gabapentin [Neurontin] 300 mg PO BID 01/30/17 07/11/18 History RX: DULoxetine HCL [Cymbalta] 60 mg PO HS 01/30/17 07/11/18 History HYDROcodone/APAP 5-325MG [[place] 1 tab PO Q6HR PRN 3 Days #8 tab 04/28/18 07/11/18 Rx 5-325] Allergies Allergy/AdvReac Type Severity Reaction Status Date / Time iodine Allergy Anaphylaxis Verified 07/11/18 14:43 shellfish derived [Shellfish] Allergy Anaphylaxis Verified 07/11/18 14:43 Physical Exam Vitals: Vital Signs Temp Pulse Pulse Resp BP BP Pulse Ox 07/12/18 05:10 98.2 F 70 20 159/77 96 07/11/18 21:05 97.9 F 73 20 155/78 98 07/11/18 18:44 97.5 F L 77 16 172/77 94 L 07/11/18 17:15 73 18 142/74 98 07/11/18 14:29 98.0 F 78 20 155/80 98 Intake and Output 07/11/18 07/12/18 07/12/18 22:59 06:59 14:59 Intake Total 0 0 Balance 0 0 Intake: Oral 0 0 Other: # Voids 3 - Constitutional General appearance: no acute distress, thin - EENT Eyes: EOMI - Neck Neck: no lymphadenopathy - Respiratory Respiratory: bilateral: CTA - Cardiovascular Rhythm: irregularly irregular Abnormal Heart Sounds: no S3 Gallop - Gastrointestinal General gastrointestinal: soft, no tenderness - Neurologic Neurologic: CNII-XII intact - Psychiatric Psychiatric: A&O x's 3, appropriate affect Results CBC & Chem 7: 07/11/18 15:07 07/11/18 15:07 Labs: Abnormal Lab Results - Last 24 Hours (Table) 07/11/18 07/11/18 07/11/18 Range/Units 15:07 15:07 15:30 MCHC 30.8 L (31.0-37.0) g/dL Chloride 111 H (98-107) mmol/L Calcium 10.3 H (8.4-10.2) mg/dL AST 43 H (14-36) U/L Alkaline Phosphatase 140 H (38-126) U/L Lipase 320 H (23-300) U/L Urine Ketones 1+ H (Negative) Urine Blood Trace H (Negative) Urine Bacteria Rare H (None) /hpf Urine Mucus Rare H (None) /hpf Thrombosis Risk Factor Assmnt - Choose All That Apply Each Factor Represents 1 point: Abnormal pulmonary function (COPD) Other Risk Factors: Yes Each Risk Factor Represents 3 Points: Age 75 years or older Other congenital or acquired thrombophilia - If yes, enter type in comment: No Thrombosis Risk Factor Assessment Total Risk Factor Score: 4 Thrombosis Risk Factor Assessment Level: Moderate Risk Assessment and Plan (1) Dysfunctional gallbladder Current Visit: Yes Status: Acute Code(s): K82.8 - OTHER SPECIFIED DISEASES OF GALLBLADDER SNOMED Code(s): 02353764 Plan: Await surgical evaluation for possible cholecystectomy. Reconcile medications once surgery consultation is complete. Check CBC and CMP in a.m. The patient is otherwise full code. Time with Patient: Greater than 30
--- NOTE | 2018-07-12 11:40 | P.CONS ---
History of Present Illness - Reason for Consult Consult date: 07/12/18 Abdominal pain biliary sludge Requesting physician: Markus Nicole - Chief Complaint Right upper quadrant abdominal pain - History of Present Illness 73-year-old female admitted with right upper quadrant abdominal pain 3-4 days duration without fever. Ultrasound probable tumefactive sludge dilated CBD 0.95 cm. White count 4.1. Hemoglobin 12.2. Platelets 315. INR 1.0. Total bilirubin 0.4. AST 43. ALT 39. AP 140. Lipase 320. No history of this type of pain. Denies jaundice or acholic stools. No weight loss. No history of alcoholism or known liver disorders. Morning chemistries pending. Review of Systems Constitutional: Denies fever, chills, sweats, weight gain, or loss. HEENT: Negative for migraines, blurred vision or loss, earaches, drainage, tinnitus, oral mucosal lesions, dysphagia, or odynophagia. CARDIAC: Negative for chest pain, arrhythmias, or palpitation. RESPIRATORY: Negative for shortness of breath, hemoptysis, cough, or sputum production. GI: See HPI for pertinent findings. : Negative for hematuria, urgency, frequency, polyuria, or dysuria. GYNc: Negative vaginal discharge. MUSCULOSKELETAL: Negative for muscle aches, swelling, arthritis, and arthralgias. NEUROLOGIC: Negative for stroke or TIA. ENDOCRINE: Negative for thyroid problems. SKIN: Negative for rash or itching. PSYCHIATRIC: Negative history for depression and anxiety Past Medical History Past Medical History: COPD, GERD/Reflux, Osteoarthritis (OA) Additional Past Medical History / Comment(s): chronic pain, hemorrhoids, gastric ulcer. History of Any Multi-Drug Resistant Organisms: None Reported Past Surgical History: Bowel Resection, Hernia Repair Additional Past Surgical History / Comment(s): hemorrhoidectomy Past Anesthesia/Blood Transfusion Reactions: No Reported Reaction Past Psychological History: Anxiety, Depression Smoking Status: Current every day smoker Past Alcohol Use History: None Reported Past Drug Use History: None Reported - Past Family History Mother Family Medical History: No Reported History Additional Family Medical History / Comment(s): still living at age of 96 and gets around well. Father Family Medical History: Cancer Additional Family Medical History / Comment(s): lung cancer at age of 75 Medications and Allergies Home Medications Medication Instructions Recorded Confirmed Type clonazePAM [KlonoPIN] 0.5 mg PO BID PRN 11/15/16 07/11/18 History DULoxetine HCL [Cymbalta] 60 mg PO HS 01/30/17 07/11/18 History Gabapentin [Neurontin] 300 mg PO BID 01/30/17 07/11/18 History HYDROcodone/APAP 5-325MG [[place] 1 tab PO Q6HR PRN 3 Days #8 tab 04/28/18 07/11/18 Rx 5-325] Allergies Allergy/AdvReac Type Severity Reaction Status Date / Time iodine Allergy Anaphylaxis Verified 07/11/18 14:43 shellfish derived [Shellfish] Allergy Anaphylaxis Verified 07/11/18 14:43 Physical Exam Vitals: Vital Signs Temp Pulse Pulse Resp BP BP Pulse Ox 07/12/18 05:10 98.2 F 70 20 159/77 96 07/11/18 21:05 97.9 F 73 20 155/78 98 07/11/18 18:44 97.5 F L 77 16 172/77 94 L 07/11/18 17:15 73 18 142/74 98 07/11/18 14:29 98.0 F 78 20 155/80 98 Intake and Output 07/11/18 07/12/18 07/12/18 22:59 06:59 14:59 Intake Total 0 0 Balance 0 0 Intake: Oral 0 0 Other: # Voids 3 1 General appearance: The patient is alert, oriented, in no acute distress. HET: Head is normocephalic and atraumatic. Pupils are equal and reactive. Oropharynx is clear without lesions. Neck: Supple without lymphadenopathy. Trachea midline. Heart: S1 S2. Regular rate and rhythm. Lungs: No crackles or wheezes are heard. Abdomen: Soft, mild right upper quadrant tenderness, nondistended with bowel sounds. No peritoneal signs. No palpable organomegaly or masses. Extremities: Normal skin color and turgor. No cyanosis, rash, ulceration, clu bbing, or edema. Radial and pedal pulses are 2/4 bilaterally. Neurological: No focal deficits. Strength and sensation are grossly intact. Results CBC & Chem 7: 07/11/18 15:07 07/11/18 15:07 Labs: Abnormal Lab Results - Last 24 Hours (Table) 07/11/18 07/11/18 07/11/18 Range/Units 15:07 15:07 15:30 MCHC 30.8 L (31.0-37.0) g/dL Chloride 111 H (98-107) mmol/L Calcium 10.3 H (8.4-10.2) mg/dL AST 43 H (14-36) U/L Alkaline Phosphatase 140 H (38-126) U/L Lipase 320 H (23-300) U/L Urine Ketones 1+ H (Negative) Urine Blood Trace H (Negative) Urine Bacteria Rare H (None) /hpf Urine Mucus Rare H (None) /hpf US - abdomen: report reviewed (Dr. Acevedo) Assessment and Plan (1) Right upper quadrant abdominal pain Narrative/Plan: 73-year-old female admitted with 4-5 day history of acute right upper quadrant abdominal pain with mild transaminitis and mild elevation of lipase 300 range ultrasound abdomen findings reporting tumefactive sludge CBD 0.9 cm with normal bilirubin. Underlying acute gallstone pancreatitis cannot be excluded. Current Visit: Yes Status: Acute Code(s): R10.11 - RIGHT UPPER QUADRANT PAIN SNOMED Code(s): 418314793 Plan: 1. General surgical consult for cholecystectomy evaluation. 2. ERCP not planned at this time considering bilirubin is normal we'll request CMP today as well as repeat lipase. If patient transaminases bilirubin worsen we'll proceed with MRCP. Diet per surgery. We'll follow with you. Thank you for this kind referral and the opportunity to participate in the care of your patient. This consultation was discussed with Dr. Acevedo. The impression and plan of care have been directed as dictated.
[2018-07-12 12:29] LABS: ALT 30 U/L (9-52); AST 23 U/L (14-36); Albumin 3.3 g/dL (3.5-5.0); Alkaline Phosphatase 87 U/L (38-126); Anion Gap 3 mmol/L; Blood Urea Nitrogen 6 mg/dL (7-17); Calcium 8.6 mg/dL (8.4-10.2); Carbon Dioxide 24 mmol/L (22-30); Chloride 113 mmol/L (98-107); Glucose 85 mg/dL (74-99); Lipase 159 U/L (23-300); Potassium 3.3 mmol/L (3.5-5.1); Sodium 140 mmol/L (137-145); Total Bilirubin 0.3 mg/dL (0.2-1.3); Total Protein 5.6 g/dL (6.3-8.2)
--- NOTE | 2018-07-12 13:00 | P.GSCN ---
History of Present Illness Consult date: 07/12/18 Reason for Consult: biliary dyskinesia Requesting physician: Markus Nicole History of present illness: CHIEF COMPLAINT: abdominal pain HISTORY OF PRESENT ILLNESS: 73-year-old female who presented to emergency room with a chief complaint of right upper quadrant abdominal pain. Patient denies nausea or vomiting. Denies fever or chills. Denies diarrhea or constipation. PAST MEDICAL HISTORY: See list. PAST SURGICAL HISTORY: See list. SOCIAL HISTORY: No illicit drug use. REVIEW OF SYSTEMS: CONSTITUTIONAL: Denies fever or chills. HEENT: Denies blurred vision, vision changes, or eye pain. Denies hemoptysis CARDIOVASCULAR: Denies chest pain or pressure. RESPIRATORY: No shortness of breath. GASTROINTESTINAL: Refer to HPI for pertinent findings HEMATOLOGIC: Denies bleeding disorders. GENITOURINARY: Denies any blood in urine. SKIN: Denies pruitis. Denies rash. PHYSICAL EXAM: VITAL SIGNS: Reviewed. GENERAL: Well-developed in no acute distress. HEENT: No sclera icterus. Extraocular movements grossly intact. Moist buccal mucosa. Head is atraumatic, normocephalic. ABDOMEN: Soft. Nondistended. Tenderness upon palpation of right upper quadrant. NEUROLOGIC: Alert and oriented. Cranial nerves II through XII grossly intact. LABORATORY DATA: Labs on admission: W BC 4.1. Hemoglobin 12.2. Total bilirubin 0.4. AST 43. ALT 39. Alkaline phosphatase 140. Amylase 94. Lipase 320. Repeat labs: Bilirubin 0.3. AST 23. ALT 30. Lipase 159. IMAGING: US Abdomen: Probable tumefactive sludge within the gallbladder. Dilated common bile duct. ASSESSMENT: 1. Right upper quadrant pain, acute cholecystitis PLAN: Clear liquid diet. NPO after midnight Patient will undergo laparoscopic cholecystectomy tomorrow Nurse practitioner note has been reviewed by physician. Signing provider agrees with the documented findings, assessment, and plan of care. Past Medical History Past Medical History: COPD, GERD/Reflux, Osteoarthritis (OA) Additional Past Medical History / Comment(s): chronic pain, hemorrhoids, gastric ulcer. History of Any Multi-Drug Resistant Organisms: None Reported Past Surgical History: Bowel Resection, Hernia Repair Additional Past Surgical History / Comment(s): hemorrhoidectomy Past Anesthesia/Blood Transfusion Reactions: No Reported Reaction Past Psychological History: Anxiety, Depression Smoking Status: Current every day smoker Past Alcohol Use History: None Reported Past Drug Use History: None Reported - Past Family History Mother Family Medical History: No Reported History Additional Family Medical History / Comment(s): still living at age of 96 and gets around well. Father Family Medical History: Cancer Additional Family Medical History / Comment(s): lung cancer at age of 75 Medications and Allergies Home Medications Medication Instructions Recorded Confirmed Type clonazePAM [KlonoPIN] 0.5 mg PO BID PRN 11/15/16 07/11/18 History DULoxetine HCL [Cymbalta] 60 mg PO HS 01/30/17 07/11/18 History Gabapentin [Neurontin] 300 mg PO BID 01/30/17 07/11/18 History HYDROcodone/APAP 5-325MG [[place] 1 tab PO Q6HR PRN 3 Days #8 tab 04/28/18 07/11/18 Rx 5-325] Allergies Allergy/AdvReac Type Severity Reaction Status Date / Time iodine Allergy Anaphylaxis Verified 07/11/18 14:43 shellfish derived [Shellfish] Allergy Anaphylaxis Verified 07/11/18 14:43 Surgical - Exam Vital Signs Temp Pulse Resp BP Pulse Ox 98.0 F 78 20 155/80 98 07/11/18 14:29 07/11/18 14:29 07/11/18 14:29 07/11/18 14:29 07/11/18 14:29 Results - Labs 07/11/18 15:07 07/12/18 11:54 Abnormal Lab Results - Last 24 Hours (Table) 07/11/18 07/11/18 07/11/18 Range/Units 15:07 15:07 15:30 MCHC 30.8 L (31.0-37.0) g/dL Potassium (3.5-5.1) mmol/L Chloride 111 H (98-107) mmol/L BUN (7-17) mg/dL Calcium 10.3 H (8.4-10.2) mg/dL AST 43 H (14-36) U/L Alkaline Phosphatase 140 H (38-126) U/L Total Protein (6.3-8.2) g/dL Albumin (3.5-5.0) g/dL Lipase 320 H (23-300) U/L Urine Ketones 1+ H (Negative) Urine Blood Trace H (Negative) Urine Bacteria Rare H (None) /hpf Urine Mucus Rare H (None) /hpf 07/12/18 Range/Units 11:54 MCHC (31.0-37.0) g/dL Potassium 3.3 L (3.5-5.1) mmol/L Chloride 113 H (98-107) mmol/L BUN 6 L (7-17) mg/dL Calcium (8.4-10.2) mg/dL AST (14-36) U/L Alkaline Phosphatase (38-126) U/L Total Protein 5.6 L (6.3-8.2) g/dL Albumin 3.3 L (3.5-5.0) g/dL Lipase (23-300) U/L Urine Ketones (Negative) Urine Blood (Negative) Urine Bacteria (None) /hpf Urine Mucus (None) /hpf Diabetes panel 07/11/18 07/12/18 Range/Units 15:07 11:54 Sodium 143 140 (137-145) mmol/L Potassium 3.8 3.3 L (3.5-5.1) mmol/L Chloride 111 H 113 H (98-107) mmol/L Carbon Dioxide 23 24 (22-30) mmol/L BUN 8 6 L (7-17) mg/dL Creatinine 0.67 0.57 (0.52-1.04) mg/dL Glucose 75 85 (74-99) mg/dL Calcium 10.3 H 8.6 (8.4-10.2) mg/dL AST 43 H 23 (14-36) U/L ALT 39 30 (9-52) U/L Alkaline Phosphatase 140 H 87 (38-126) U/L Total Protein 7.8 5.6 L (6.3-8.2) g/dL Albumin 4.8 3.3 L (3.5-5.0) g/dL Calcium panel 07/11/18 07/12/18 Range/Units 15:07 11:54 Calcium 10.3 H 8.6 (8.4-10.2) mg/dL Albumin 4.8 3.3 L (3.5-5.0) g/dL Pituitary panel 07/11/18 07/12/18 Range/Units 15:07 11:54 Sodium 143 140 (137-145) mmol/L Potassium 3.8 3.3 L (3.5-5.1) mmol/L Chloride 111 H 113 H (98-107) mmol/L Carbon Dioxide 23 24 (22-30) mmol/L BUN 8 6 L (7-17) mg/dL Creatinine 0.67 0.57 (0.52-1.04) mg/dL Glucose 75 85 (74-99) mg/dL Calcium 10.3 H 8.6 (8.4-10.2) mg/dL Adrenal panel 07/11/18 07/12/18 Range/Units 15:07 11:54 Sodium 143 140 (137-145) mmol/L Potassium 3.8 3.3 L (3.5-5.1) mmol/L Chloride 111 H 113 H (98-107) mmol/L Carbon Dioxide 23 24 (22-30) mmol/L BUN 8 6 L (7-17) mg/dL Creatinine 0.67 0.57 (0.52-1.04) mg/dL Glucose 75 85 (74-99) mg/dL Calcium 10.3 H 8.6 (8.4-10.2) mg/dL Total Bilirubin 0.4 0.3 (0.2-1.3) mg/dL AST 43 H 23 (14-36) U/L ALT 39 30 (9-52) U/L Alkaline Phosphatase 140 H 87 (38-126) U/L Total Protein 7.8 5.6 L (6.3-8.2) g/dL Albumin 4.8 3.3 L (3.5-5.0) g/dL
[2018-07-12] MEDS ORDERED: Potassium Replacement Protocol 1 EACH MISC MISCELLANE PRN (13:08)
[2018-07-12] MEDS: GABAPENTIN 300 MG CAP PO SCH ×2 (13:15→20:03)
[2018-07-12] MEDS: POTASSIUM CHLORIDE ER 20 MEQ TAB.ER PO SCH ×2 (13:15→14:46)
[2018-07-12] MEDS: DULoxetine HCL 60 MG CAPSULE.DR PO SCH (20:03)
[2018-07-12] MEDS: clonazePAM 0.5 MG TAB PO PRN (20:07)
[2018-07-12] MEDS: HYDROcodone/APAP 5-325MG 1 EACH TAB PO PRN (22:58)
[2018-07-12] MEDS ORDERED: HYDROmorphone 0.5 MG/0.5 ML SYRINGE ONE (23:30)
[2018-07-13] MEDS ORDERED: HYDROmorphone 0.5 MG/0.5 ML SYRINGE ONE (03:30)
[2018-07-13] MEDS: GABAPENTIN 300 MG CAP PO SCH ×2 (07:24→20:24)
[2018-07-13] MEDS: HYDROmorphone 0.5 MG/0.5 ML SYRINGE IVP PRN ×3 (07:24→20:24)
[2018-07-13] MEDS: SODIUM CHLORIDE 0.9% 1,000 ML IV SCH ×2 (07:25→21:07)
--- NOTE | 2018-07-13 07:55 | P.PN ---
Subjective Progress Note Date: 07/13/18 Principal diagnosis: Biliary dyskinesia This is a continue progress on a 73-year-old white female with history of biliary dyskinesia. She is scheduled for left scalp cholecystectomy today. Objective - Vital Signs Vital signs: Vital Signs Temp 98.2 F 07/13/18 05:09 Pulse 63 07/13/18 05:09 Resp 16 07/13/18 05:09 BP 164/82 07/13/18 05:09 Pulse Ox 94 L 07/13/18 05:09 Intake & Output 07/12/18 07/13/18 07/13/18 18:59 06:59 18:59 Other: Voiding Method Toilet # Voids 3 3 # Bowel Movements 0 - Constitutional General appearance: Present: average body habitus - EENT Eyes: Absent: abnormal pupil - Respiratory Respiratory: bilateral: CTA - Cardiovascular Rhythm: regular Heart sounds: normal: S1, S2 Abnormal Heart Sounds: Absent: S3 Gallop - Gastrointestinal General gastrointestinal: Present: soft. Absent: tenderness - Neurologic Neurologic: Present: CNII-XII intact - Psychiatric Psychiatric: Present: A&O x's 3 - Labs CBC & Chem 7: 07/11/18 15:07 07/12/18 17:45 Labs: Abnormal Lab Results - Last 24 Hours (Table) 07/12/18 Range/Units 11:54 Potassium 3.3 L (3.5-5.1) mmol/L Chloride 113 H (98-107) mmol/L BUN 6 L (7-17) mg/dL Total Protein 5.6 L (6.3-8.2) g/dL Albumin 3.3 L (3.5-5.0) g/dL Assessment and Plan (1) Dysfunctional gallbladder Current Visit: Yes Status: Acute Code(s): K82.8 - OTHER SPECIFIED DISEASES OF GALLBLADDER SNOMED Code(s): 81861348 Plan: We will continue to follow from a medical perspective postoperatively.
[2018-07-13 09:52] LABS: ALT 32 U/L (9-52); AST 25 U/L (14-36); Albumin 3.2 g/dL (3.5-5.0); Alkaline Phosphatase 74 U/L (38-126); Anion Gap 3 mmol/L; Blood Urea Nitrogen 3 mg/dL (7-17); Calcium 8.8 mg/dL (8.4-10.2); Carbon Dioxide 26 mmol/L (22-30); Chloride 113 mmol/L (98-107); Glucose 85 mg/dL (74-99); Potassium 4.1 mmol/L (3.5-5.1); Sodium 142 mmol/L (137-145); Total Bilirubin 0.3 mg/dL (0.2-1.3); Total Protein 5.6 g/dL (6.3-8.2)
[2018-07-13] MEDS: HYDROcodone/APAP 5-325MG 1 EACH TAB PO PRN (13:15)
[2018-07-13] MEDS ORDERED: IV FLUID CONTINUATION 1,000 ML IV ONE (14:47)
[2018-07-13] MEDS ORDERED: LACTATED RINGERS 1,000 ML IV ONE (14:49)
[2018-07-13] MEDS ORDERED: HEPARIN SODIUM,PORCINE 5,000 UNIT/ML 1 ML VIAL SQ ONE (15:28)
[2018-07-13] MEDS ORDERED: ROCURONIUM BROMIDE 10 MG/ML 10 ML VIAL IV ONE (15:40)
[2018-07-13] MEDS ORDERED: GLYCOPYRROLATE 0.2 MG/ML 2 ML VIAL ONE (15:40)
[2018-07-13] MEDS ORDERED: SUCCINYLCHOLINE CHLORIDE 100 MG/5 ML SYR IV ONE (15:40)
[2018-07-13] MEDS ORDERED: fentaNYL (PF) 50 MCG/ML 2 ML AMP ONE (15:40)
[2018-07-13] MEDS ORDERED: NEOSTIGMINE 1 MG/ML 10 ML VIAL ONE (15:40)
[2018-07-13] MEDS ORDERED: PROPOFOL 10 MG/ML 20 ML VIAL IV ONE (15:40)
[2018-07-13] MEDS ORDERED: LIDOCAINE 1% INJ 10MG/ML (20 ML MDV) ONE (15:40)
[2018-07-13] MEDS ORDERED: MIDAZOLAM 2 MG/2 ML VIAL ONE (15:40)
[2018-07-13] MEDS ORDERED: BUPIVACAIN-EPI 0.5%-1:200,000 30 ML VIAL SQ ONE (15:59)
--- NOTE | 2018-07-13 16:23 | P.OP ---
Date of Procedure: 07/13/18 Preoperative Diagnosis: Cholecystitis Postoperative Diagnosis: Cholecystitis Procedure(s) Performed: Laparoscopic cholecystectomy Anesthesia: ZAID Surgeon: Jose Juan Patel Estimated Blood Loss (ml): 5 Pathology: other (Gallbladder) Condition: stable Disposition: PACU Description of Procedure: The patient was placed on the operating table. The patient received a general endotracheal tube anesthesia. The patients abdomen was prepped and draped in the usual sterile fashion. Through an infraumbilical stab incision, the fascia of the anterior abdominal wall was grasped with a pair of Kochers and then the Veress needle was placed in the peritoneal cavity. Position of the Veress needle was confirmed with positive drop test. The abdomen was then insufflated. After adequate insufflation, the 10 mm trocar was placed in the peritoneal cavity. Following this the laparoscope was placed in the peritoneal cavity. The patient was placed in the head-up, right side up position and then a 5 mm trocar was placed in the right lateral and right subcostal position under direct visualization. A 8 mm trocar was placed in the epigastric position. The gallbladder was grasped in the fundus and infundibulum. Traction on the gallbladder was placed in the lateral and the cephalad positions. The triangle of [place] was visualized.. The cystic duct was bluntly dissected until the union of the cystic duct and common bile duct was seen. A critical view of safety was achieved. The cystic duct was then divided and sealed with the Harmonic scissors. A PDS Endoloop was then placed throughout the cystic duct stump. The cystic artery divided and sealed with the Harmonic scissors. The gallbladder was then removed from the liver bed using Harmonic scissors. The gallbladder was then extracted through the epigastric port site. Operative field was checked for any bleeding spots and Harmonic scissors was used to coagulate the liver bed. The abdomen was irrigated. The trocars were removed. The skin was closed using interrupted 3-0 Vicryl suture. Dermabond dressing were applied. The patient tolerated the procedure well.
[2018-07-13] MEDS: HYDROmorphone 1 MG/ML 1 ML SYRINGE IVP ONE ×3 (16:35→17:08)
[2018-07-13] MEDS: HYDROcodone/APAP 7.5-325MG 1 EACH TAB PO PRN (18:11)
[2018-07-13] MEDS: DULoxetine HCL 60 MG CAPSULE.DR PO SCH (20:24)
[2018-07-13] MEDS: clonazePAM 0.5 MG TAB PO PRN (20:24)
[2018-07-14] MEDS: HYDROmorphone 0.5 MG/0.5 ML SYRINGE IVP PRN ×2 (01:28→06:19)
[2018-07-14] MEDS: SODIUM CHLORIDE 0.9% 1,000 ML IV SCH (06:19)
[2018-07-14] MEDS: HYDROcodone/APAP 7.5-325MG 1 EACH TAB PO PRN (07:52)
[2018-07-14] MEDS: GABAPENTIN 300 MG CAP PO SCH (07:52)
--- NOTE | 2018-07-14 08:13 | P.PN ---
Subjective Principal diagnosis: Biliary dyskinesia Otherwise, the patient's postoperative day #1 cholecystectomy. She does complain of element of pain. Objective - Vital Signs Vital signs: Vital Signs Temp 98.5 F 07/14/18 04:35 Pulse 88 07/14/18 04:35 Resp 16 07/14/18 04:35 BP 133/65 07/14/18 04:35 Pulse Ox 97 07/14/18 04:35 Intake & Output 07/13/18 07/14/18 07/14/18 18:59 06:59 18:59 Intake Total 775 Output Total 505 Balance 270 Intake: IV 775 Output: Urine 500 Estimated Blood Loss 5 Other: Voiding Method Toilet # Voids 3 4 - Constitutional General appearance: Present: thin - EENT Eyes: Absent: abnormal pupil - Neck Neck: Absent: lymphadenopathy - Respiratory Respiratory: bilateral: CTA - Cardiovascular Rhythm: regular Heart sounds: normal: S1, S2 Abnormal Heart Sounds: Absent: S3 Gallop - Gastrointestinal General gastrointestinal: Present: decreased bowel sounds, soft. Absent: tend erness - Musculoskeletal Musculoskeletal: Present: strength equal bilaterally - Psychiatric Psychiatric: Present: A&O x's 3 - Labs CBC & Chem 7: 07/11/18 15:07 07/13/18 09:15 Labs: Abnormal Lab Results - Last 24 Hours (Table) 07/13/18 Range/Units 09:15 Chloride 113 H (98-107) mmol/L BUN 3 L (7-17) mg/dL Total Protein 5.6 L (6.3-8.2) g/dL Albumin 3.2 L (3.5-5.0) g/dL Assessment and Plan (1) Dysfunctional gallbladder Current Visit: Yes Status: Acute Code(s): K82.8 - OTHER SPECIFIED DISEASES OF GALLBLADDER SNOMED Code(s): 44460930 Plan: We'll continue follow postoperatively. Anticipate discharge in next 24 hours if the patient's tolerating diet. Otherwise, Dr. Ludwig's group will be covering for the weekend.
--- NOTE | 2018-07-14 11:53 | P.PN ---
Subjective Progress Note Date: 07/14/18 CHIEF COMPLAINT: abdominal pain HISTORY OF PRESENT ILLNESS: Patient is status post laparoscopic cholecystectomy. POD #1. Pain is tolerable. Patient tolerating diet. Vital signs stable. PHYSICAL EXAM: VITAL SIGNS: Reviewed. GENERAL: Well-developed in no acute distress. HEENT: No sclera icterus. Extraocular movements grossly intact. Moist buccal mucosa. Head is atraumatic, normocephalic. ABDOMEN: Soft. Nondistended. Surgical incision sites clean and dry without drainage. NEUROLOGIC: Alert and oriented. Cranial nerves II through XII grossly intact. ASSESSMENT: 1. Right upper quadrant pain, acute cholecystitis PLAN: Patient is stable for discharge from a surgical standpoint. Will defer to primary team. No Rx for narcotics will be given at discharge as patient is prescribed [place] on an outpatient basis. Patient instructed to continue her home dose of [place] for pain control. Follow-up with Dr. Patel in 1 week Nurse practitioner note has been reviewed by physician. Signing provider agrees with the documented findings, assessment, and plan of care. Objective - Vital Signs Vital signs: Vital Signs Temp 98.5 F 07/14/18 04:35 Pulse 88 07/14/18 04:35 Resp 16 07/14/18 04:35 BP 133/65 07/14/18 04:35 Pulse Ox 97 07/14/18 04:35 Intake & Output 07/13/18 07/14/18 07/14/18 18:59 06:59 18:59 Intake Total 775 Output Total 505 Balance 270 Intake: IV 775 Output: Urine 500 Estimated Blood Loss 5 Other: Voiding Method Toilet Toilet # Voids 3 4 - Labs CBC & Chem 7: 07/11/18 15:07 07/13/18 09:15
[2018-07-14 13:17] VITALS: BP 132/60; PULSE 72; RESP 18; TEMP 98.4
--- NOTE | 2018-07-14 13:28 | P.DS ---
Providers Date of admission: 07/13/18 16:03 Expected date of discharge: 07/14/18 Attending physician: Markus Nicole Consults: 07/13/18 13:03 Consult Physician Routine Consulting Provider: Jose Juan Patel Consult Reason/Comments: biliary sludge abdominal pain Do you want consulting provider notified?: Already Contacted Primary care physician: Markus Nicole Hospital Course: Final Diagnoses: -Dysfunctional gallbladder, status post laparoscopic cholecystectomy -This is a 73-year-old female admitted with acute right upper quadrant pain. Abdominal ultrasound reporting gallbladder sludge, dilated common bile duct. Evaluated by surgery, diagnosed with acute cholecystitis. Underwent laparoscopic cholecystectomy. Tolerated procedure well. Significant clinical improvement. Cleared by surgery for discharge .Patient is being discharged home in a stable condition with guarded prognosis. EXAM: - Constitutional General appearance: alert and oriented 3, no acute distress - Respiratory Respiratory: bilateral: CTA - Cardiovascular Rhythm: regular Heart sounds: normal: S1, S2 Abnormal Heart Sounds: Absent: S3 Gallop - Gastrointestinal General gastrointestinal: Present: decreased bowel sounds, soft. Absent: tenderness -NEURO: No focal deficits The impression and plan of care has been dictated as directed. : I performed a history and examination of this patient, discussed the same with the dictator. I agree with the dictator's note ,documented as a scribe. Any additional findings or plans will be noted. Intake and: 35 minutes Patient Condition at Discharge: Stable Plan - Discharge Summary Discharge Rx Participant: Yes New Discharge Prescriptions: Continue clonazePAM [KlonoPIN] 0.5 mg PO BID PRN PRN Reason: Anxiety DULoxetine HCL [Cymbalta] 60 mg PO HS Gabapentin [Neurontin] 300 mg PO BID HYDROcodone/APAP 5-325MG [[place] 5-325] 1 tab PO Q6HR PRN 3 Days #8 tab PRN Reason: Pain Discharge Medication List clonazePAM [KlonoPIN] 0.5 mg PO BID PRN 11/15/16 [History] DULoxetine HCL [Cymbalta] 60 mg PO HS 01/30/17 [History] Gabapentin [Neurontin] 300 mg PO BID 01/30/17 [History] HYDROcodone/APAP 5-325MG [[place] 5-325] 1 tab PO Q6HR PRN 3 Days #8 tab 04/28/18 [Rx] Follow up Appointment(s)/Referral(s): Markus Nicole MD [Primary Care Provider] - 07/26/18 9:00 am Jose Juan Patel MD [STAFF PHYSICIAN] - 07/21/18 2:30 pm Patient Instructions/Handouts: Laparoscopic Cholecystectomy (DC) Activity/Diet/Wound Care/Special Instructions: Wants D/c Rx No driving while taking [place] No lifting over 10 pounds You may shower. No soaking or tub baths Very light activity until you are reevaluated at your follow up appointment with your surgeon
[2018-07-14] MEDS: HYDROcodone/APAP 5-325MG 1 EACH TAB PO PRN (13:35)
== END 2018-07-14 14:08 | disposition home or self-care (01) | DRG 419 ==
LOC: EC 14:27 → 4MS4W 16:54 → OBSVTOIN 07-13 16:03
PROVIDERS: ADMIT Family Medicine; ATTEND Family Medicine
PROC: 0FT44ZZ Resection of Gallbladder, Percutaneous Endoscopic Approach (ICD-10-PCS; principal; 2018-07-13 16:30)
DX: K81.0 Acute cholecystitis (principal); K21.9 Gastro-esophageal reflux disease without esophagitis; J44.9 Chronic obstructive pulmonary disease, unspecified; G89.29 Other chronic pain; M19.90 Unspecified osteoarthritis, unspecified site; F41.9 Anxiety disorder, unspecified; F32.9 Major depressive disorder, single episode, unspecified; F17.200 Nicotine dependence, unspecified, uncomplicated; Z79.899 Other long term (current) drug therapy; Z87.11 Personal history of peptic ulcer disease; Z80.1 Family history of malignant neoplasm of trachea, bronchus and lung; Z91.013 Allergy to seafood; Z91.048 Other nonmedicinal substance allergy status; Z98.890 Other specified postprocedural states; Z91.041 Radiographic dye allergy status
CPT/HCPCS: 36415; 76705; 80053; 81001; 82150; 83605; 83690; 84132; 85025; 85610; 88304; 96374; 96375; 99285

== ENCOUNTER → 2019-01-02 | Outpatient (CLI) | payer MEDICARE, OTHER ==
--- NOTE | 2019-01-02 13:34 | BD ---
EXAMINATION TYPE: Axial Bone Density DATE OF EXAM: 01/02/2019 COMPARISON: 03/20/2015 CLINICAL HISTORY: N 95.1 Height: 59 IN Weight: 96 LBS FRAX RISK QUESTIONS: History of Fracture in Adulthood: LEFT RIBS AGE 67 Secondary Osteoporosis: 3. Menopause before 45: PARTIAL HYST AGE 44 Current Tobacco Use: YES RISK FACTORS HISTORY OF: History of Wrist Fracture: YES LEFT When: AGE 67 Active: YES Postmenopausal woman: AGE 44 MEDICATIONS: Additional Medications: CALCIUM, KLONOPIN, NORCO, EXAM MEASUREMENTS: Bone mineral densitometry was performed using the Emulate System. Bone mineral density as measured about the Lumbar spine is: ----- L1-L4(G/cm2): 0.639 T Score Values are as follows: ----- L2: -4.8 ----- L3: -4.6 ----- L4: -4.1 ----- L1-L4: -4.5 Bone mineral density has: Increased 0.2since study of: 03/20/2015 Bone mineral density about the R hip (g/cm2): 0.617 Bone mineral density about the L hip (g/cm2): 0.569 T Score values are as follows: -----R Neck: -3.0 -----L Neck: -3.4 -----R Total: -2.9 -----L Total: -3.0 Bone mineral density has: Decreased -1.9ince study of: 03/20/2015 IMPRESSION: Osteoporosis (T Score less than -2.5). There is increased fracture risk and therapy is usually indicated based on age. Re-Screen 1-2 years. NOTE: T-SCORE=SD OF THE YOUNG ADULT MEAN.
--- NOTE | 2019-01-03 10:35 | MM ---
Reason for exam: screening (asymptomatic). Last mammogram was performed 1 year ago. History: Patient is postmenopausal. Family history of breast cancer in sister. Benign excisional biopsy of the left breast, 1998. Physical Findings: A clinical breast exam by your physician is recommended on an annual basis and results should be correlated with mammographic findings. MG 3D Screening Mammo W/Cad Bilateral CC and MLO view(s) were taken. Prior study comparison: December 31, 2017, bilateral MG 3d screening mammo w/cad. December 30, 2016, left breast MG 3d work up w/cad LT. The breast tissue is extremely dense which could obscure a lesion on mammography. There are benign appearing vascular calcifications bilaterally. There is no discrete abnormality. ASSESSMENT: Negative, BI-RAD 1 RECOMMENDATION: Routine screening mammogram of both breasts in 1 year.
== END | disposition home or self-care (01) ==
LOC: RADMAMWWP 12:10
PROVIDERS: ATTEND Family Medicine
DX: Z12.31 Encounter for screening mammogram for malignant neoplasm of breast (principal); M81.0 Age-related osteoporosis without current pathological fracture
CPT/HCPCS: 77063; 77067; 77080

== ENCOUNTER 2019-02-24 09:14 | Emergency (ER) | payer MEDICARE, OTHER ==
[2019-02-24 09:25] VITALS: TEMP 98.6
[2019-02-24] MEDS ORDERED: MORPHINE SULFATE 2 MG/ML SYRINGE IM STA (09:25)
[2019-02-24] MEDS ORDERED: ONDANSETRON ODT 4 MG TAB PO STA (09:25)
--- NOTE | 2019-02-24 09:34 | ED ---
General Adult HPI - General Chief complaint: Fall Stated complaint: Fall, head injury Time Seen by Provider: 02/24/19 09:15 Source: patient Mode of arrival: EMS Limitations: no limitations - History of Present Illness Initial comments: 73-year-old female presenting for fall from second step from the ground. Patient states she fell forward and she was walking too fast down her steps. She states she fell forward catching her fall to her hand and her left leg she states she has left leg pain she is also stating that she had lost that her head has a slight headache. Patient states she has chronic neck pain she denies any significant change she states maybe feels a tiny bit more painful when she rotates. Patient denies any loss of consciousness and use of anticoagulation therapy patient denies any visual speech changes weakness of the upper or lower extremity. Patient denies any chest pain shortness of breath or syncopal episodes causing all this was mechanical. 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 - Related Data Home Medications Medication Instructions Recorded Confirmed clonazePAM [KlonoPIN] 0.5 mg PO BID PRN 11/15/16 02/24/19 DULoxetine HCL [Cymbalta] 60 mg PO HS 01/30/17 02/24/19 Gabapentin [Neurontin] 300 mg PO TID 01/30/17 02/24/19 HYDROcodone/APAP 5-325MG [[place] 1 tab PO Q8H 02/24/19 02/24/19 5-325] QUEtiapine [SEROquel] 50 mg PO HS PRN 02/24/19 02/24/19 Allergies Allergy/AdvReac Type Severity Reaction Status Date / Time iodine Allergy Anaphylaxis Verified 07/11/18 14:43 shellfish derived [Shellfish] Allergy Anaphylaxis Verified 07/11/18 14:43 Review of Systems ROS Statement: Those systems with pertinent positive or pertinent negative responses have been documented in the HPI. ROS Other: All systems not noted in ROS Statement are negative. Past Medical History Past Medical History: COPD, GERD/Reflux, Osteoarthritis (OA) Additional Past Medical History / Comment(s): chronic pain, hemorrhoids, gastric ulcer. History of Any Multi-Drug Resistant Organisms: None Reported Past Surgical History: Bowel Resection, Hernia Repair Additional Past Surgical History / Comment(s): hemorrhoidectomy Past Anesthesia/Blood Transfusion Reactions: No Reported Reaction Past Psychological History: Anxiety, Depression Smoking Status: Current every day smoker Past Alcohol Use History: None Reported Past Drug Use History: None Reported - Past Family History Mother Family Medical History: No Reported History Additional Family Medical History / Comment(s): still living at age of 96 and gets around well. Father Family Medical History: Cancer Additional Family Medical History / Comment(s): lung cancer at age of 75 General Exam - General Exam Comments Initial Comments: General: The patient is awake and alert, in no distress, and does not appear acutely ill. Eye: +3 mm pupils are equal, round and reactive to light, extra-ocular movements are intact. No nystagmus. There is normal conjunctiva bilaterally. No signs of icterus. Ears, nose, mouth and throat: There are moist mucous membranes and no oral lesions. No midline tenderness with palpation the cervical thoracic or lumbar spine per patient has some mild right-sided paravertebral tenderness of the cervical spine otherwise no tenderness noted. No raccoon or Malloy sign noted Neck: The neck is supple, there is no tenderness or JVD. Cardiovascular: There is a regular rate and rhythm. No murmur, rub or gallop is appreciated. Respiratory: Lungs are clear to auscultation, respirations are non-labored, breath sounds are equal. No wheezes, stridor, rales, or rhonchi. Gastrointestinal: Soft, non-distended, non-tender abdomen without masses or organomegaly noted. There is no rebound or guarding present. Musculoskeletal: On gross examination there is no ecchymosis soft tissue swellings or any abdomen abnormalities noted of the legs bilaterally after patient was unclothed. Patient has tenderness over the mid tibia and fibula. No proximal tibia-fibula pain or distal. Patient able to fully range at the hips knees and ankles bilaterally no rotation or shortening noted no pain with the logroll or weightbearing. Strength 5/5 of the UE and LE b/l. Sensation intact. Radial and D P pulses equal bilaterally 2+. Neurological: A&O x 3. CN II-XII intact, There are no obvious motor or sensory deficits. Coordination appears grossly intact. Speech is normal. Skin: Skin is warm and dry and no rashes or lesions are noted. Psychiatric: Cooperative, appropriate mood & affect, normal judgment. Limitations: no limitations Course Vital Signs 02/24/19 02/24/19 02/24/19 09:19 10:29 10:52 Temperature 98.6 F Pulse Rate 70 73 72 Respiratory 18 16 18 Rate Blood Pressure 129/81 112/65 112/70 O2 Sat by Pulse 97 99 99 Oximetry Medical Decision Making - Medical Decision Making D3-year-old female presented for fall. There is no evidence of trauma physical examination. No evidence of facial trauma. No focal neurological deficits noted. Patient neurovascular intact of the extremities. And able to weight- bear. CT brain C-spine negative aside from degenerative changes. Imaging study of the left leg the patient had localized area of complaint negative patient otherwise appears well A medication emergency department. Patient is stable for discharge with outpatient primary care follow-up return parameters discussed with attending provider who is garbled care plan discharge at this time Disposition Clinical Impression: Fall, Head injury, Chronic neck pain, Leg pain Disposition: HOME SELF-CARE Condition: Good Instructions (If sedation given, give patient instructions): Fall Prevention for Older Adults (ED) Additional Instructions: Please use medication as discussed. Please follow-up with family doctor in the next 2 days. Please return to emergency room if the symptoms increase or worsen or for any other concerns. Is patient prescribed a controlled substance at d/c from ED?: No Referrals: Markus Nicole MD [Primary Care Provider] - 1-2 days Time of Disposition: 10:26
--- NOTE | 2019-02-24 10:08 | XR ---
EXAMINATION TYPE: XR tibia fibula LT DATE OF EXAM: 02/24/2019 CLINICAL HISTORY: Fall injury with pain. TECHNIQUE: Two views of the left leg are obtained. COMPARISON: None. FINDINGS: Demineralization is present. There is no acute fracture or dislocation seen in the left tib ia or fibula. The visualized left knee and ankle joints appear within normal limits. The overlying soft tissue appears unremarkable. IMPRESSION: There is no acute fracture or dislocation seen in the left tibia or fibula.
--- NOTE | 2019-02-24 10:13 | CT ---
EXAMINATION TYPE: CT brain ethel gunter DATE OF EXAM: 02/24/2019 COMPARISON: April 27, 2018 HISTORY: Fall CT DLP: 1200.[address] of the brain was performed. The ventricles, basal cisterns and sulci overlying the cerebral convexities demonstrate mild enlargem ent. There is no evidence for intracranial hemorrhage or sulcal effacement. There is decreased attenuatio n about the periventricular white matter and deep white matter of both cerebral hemispheres, compatib le with chronic small vessel ischemia. No mass effects are seen. If symptoms persist consider MRI. Osseous calvarium is intact. IMPRESSION: 1. Age related atrophic and chronic small vessel ischemic change without acute intracranial process seen at this time. CT Cervical Spine: Unenhanced CT of the cervical spine was performed with bone and soft tissue window settings submitted . Coronal and sagittal reconstruction is obtained. There is normal alignment and prevertebral soft tissues. No evidence for acute cervical fracture . Scattered degenerative disc disease and spondylosis. Biapical scarring. IMPRESSION: 1. No evidence for acute fracture or subluxation of the cervical spine.
[2019-02-24] MEDS ORDERED: ACET/COD 300 MG/30 MG STARTER PACK 6 TAB BTL PO STA (10:32)
[2019-02-24 10:57] VITALS: BP 112/70; PULSE 72; RESP 18
== END 2019-02-24 10:52 | disposition home or self-care (01) ==
LOC: EC 09:14
DX: S09.90XA Unspecified injury of head, initial encounter (principal); G89.29 Other chronic pain; M54.2 Cervicalgia; M79.605 Pain in left leg; M19.90 Unspecified osteoarthritis, unspecified site; F32.9 Major depressive disorder, single episode, unspecified; F41.9 Anxiety disorder, unspecified; F17.210 Nicotine dependence, cigarettes, uncomplicated; Z91.013 Allergy to seafood; Z91.048 Other nonmedicinal substance allergy status; Z79.891 Long term (current) use of opiate analgesic; Z79.899 Other long term (current) drug therapy; W10.9XXA Fall (on) (from) unspecified stairs and steps, initial encounter; Y93.01 Activity, walking, marching and hiking; Y92.009 Unspecified place in unspecified non-institutional (private) residence as the place of occurrence of the external cause
CPT/HCPCS: 73590; 72125; 70450; 99284; 96372; J2270

== ENCOUNTER 2019-12-07 13:20 | Observation (INO) | payer MEDICARE, OTHER ==
[2019-12-07] MEDS ORDERED: NITROGLYCERIN OINT 1 INCH/GM PACKET TOPICAL STA (13:43)
[2019-12-07] MEDS ORDERED: ASPIRIN 81 MG PO STA (13:43)
[2019-12-07] MEDS ORDERED: HYDROcodone/APAP 5-325MG 1 EACH TAB PO STA (13:43)
--- NOTE | 2019-12-07 13:46 | ED ---
General Adult HPI - General Stated complaint: Chest Pain, Dizziness Time Seen by Provider: 12/07/19 13:35 Source: patient, RN notes reviewed Limitations: no limitations - History of Present Illness Initial comments: Patient is a pleasant 74-year-old female presenting to the emergency Department with complaints of chest discomfort. Onset of symptoms was today. Discomfort is moderate. Patient does occasionally get discomfort secondary to previous injury however this is worse than normal. Patient was a little bit short of breath. Patient feels lightheaded. Patient does have a mild headache however this is chronic and unchanged. Patient requests a [place] for her headache which she takes at home. Patient occasionally gets some leg swelling. No Pain. - Related Data Home Medications Medication Instructions Recorded Confirmed clonazePAM [KlonoPIN] 0.5 mg PO BID PRN 11/15/16 02/24/19 DULoxetine HCL [Cymbalta] 60 mg PO HS 01/30/17 02/24/19 Gabapentin [Neurontin] 300 mg PO TID 01/30/17 02/24/19 HYDROcodone/APAP 5-325MG [[place] 1 tab PO Q8H 02/24/19 02/24/19 5-325] QUEtiapine [SEROquel] 50 mg PO HS PRN 02/24/19 02/24/19 Allergies Allergy/AdvReac Type Severity Reaction Status Date / Time iodine Allergy Anaphylaxis Verified 12/07/19 13:44 shellfish derived [Shellfish] Allergy Anaphylaxis Verified 12/07/19 13:44 Review of Systems ROS Statement: Those systems with pertinent positive or pertinent negative responses have been documented in the HPI. ROS Other: All systems not noted in ROS Statement are negative. Constitutional: Denies: fever Eyes: Denies: eye pain ENT: Denies: ear pain Respiratory: Reports: as per HPI. Denies: cough Cardiovascular: Reports: as per HPI, chest pain Endocrine: Denies: fatigue Gastrointestinal: Denies: abdominal pain, nausea Genitourinary: Denies: dysuria Musculoskeletal: Denies: back pain Skin: Denies: rash Neurological: Reports: as per HPI. Denies: weakness, confusion Past Medical History Past Medical History: COPD, GERD/Reflux, Osteoarthritis (OA) Additional Past Medical History / Comment(s): chronic pain, hemorrhoids, gastric ulcer. History of Any Multi-Drug Resistant Organisms: None Reported Past Surgical History: Bowel Resection, Hernia Repair Additional Past Surgical History / Comment(s): hemorrhoidectomy Past Anesthesia/Blood Transfusion Reactions: No Reported Reaction Past Psychological History: Anxiety, Depression Past Alcohol Use History: None Reported Past Drug Use History: None Reported - Past Family History Mother Family Medical History: No Reported History Additional Family Medical History / Comment(s): still living at age of 96 and gets around well. Father Family Medical History: Cancer Additional Family Medical History / Comment(s): lung cancer at age of 75 General Exam Limitations: no limitations General appearance: alert, in no apparent distress Head exam: Present: normocephalic Eye exam: Present: normal appearance, PERRL, EOMI ENT exam: Present: normal oropharynx Neck exam: Present: normal inspection Respiratory exam: Present: normal lung sounds bilaterally Cardiovascular Exam: Present: regular rate, normal rhythm, normal heart sounds Expanded Peripheral pulses: 2+: Radial (R), Radial (L), Dorsalis Pedis (R), Dorsalis Pedis (L) GI/Abdominal exam: Present: soft. Absent: tenderness Extremities exam: Present: pedal edema (Trace bilateral). Absent: calf tenderness Neurological exam: Present: alert, oriented X3, CN II-XII intact. Absent: motor sensory deficit Expanded Patient oriented to: Present: person, place, time Speech: Present: fluid speech Cranial nerves: EOM's Intact: Normal Motor strength exam: RUE: 5, LUE: 5, RLE: 5, LLE: 5 Eye Response: (4) open spontaneously Motor Response: (6) obeys commands Verbal Response: (5) oriented Psychiatric exam: Present: normal affect, normal mood Skin exam: Present: normal color Course Vital Signs 12/07/19 13:42 Temperature 98.8 F Pulse Rate 81 Respiratory 18 Rate Blood Pressure 134/66 O2 Sat by Pulse 98 Oximetry EKG Findings - EKG Comments: EKG Findings:: Normal sinus rhythm at 80. MT 132. QRS 72. QT 360. QTC 4:15. Normal axis. Normal QRS. No acute ST change. Medical Decision Making - Medical Decision Making Patient reevaluated and resting comfortably in bed. Patient updated on results and plan. Case was discussed in detail with Dr. Nicole, who will admit his patient. - Lab Data Result diagrams: 12/07/19 13:43 12/07/19 13:43 Lab Results 12/07/19 12/07/19 12/07/19 Range/Units 13:43 13:43 13:43 WBC 4.7 (3.8-10.6) k/uL RBC 3.80 (3.80-5.40) m/uL Hgb 10.9 L (11.4-16.0) gm/dL Hct 35.1 (34.0-46.0) % MCV 92.4 (80.0-100.0) fL MCH 28.6 (25.0-35.0) pg MCHC 31.0 (31.0-37.0) g/dL RDW 15.9 H (11.5-15.5) % Plt Count 334 (150-450) k/uL Neutrophils % (Manual) 29 % Lymphocytes % (Manual) 53 % Monocytes % (Manual) 13 % Eosinophils % (Manual) 4 % Basophils % (Manual) 1 % Neutrophils # (Manual) 1.36 (1.3-7.7) k/uL Lymphocytes # (Manual) 2.49 (1.0-4.8) k/uL Monocytes # (Manual) 0.61 (0-1.0) k/uL Eosinophils # (Manual) 0.19 (0-0.7) k/uL Basophils # (Manual) 0.05 (0-0.2) k/uL Nucleated RBCs 0 (0-0) /100 WBC Manual Slide Review Performed RBC Morphology Normal PT 10.6 (9.0-12.0) sec INR 1.0 (<1.2) APTT 26.1 (22.0-30.0) sec D-Dimer 0.41 (<0.60) mg/L FEU Sodium 141 (137-145) mmol/L Potassium 4.8 (3.5-5.1) mmol/L Chloride 111 H (98-107) mmol/L Carbon Dioxide 21 L (22-30) mmol/L Anion Gap 9 mmol/L BUN 17 (7-17) mg/dL Creatinine 1.02 (0.52-1.04) mg/dL Est GFR (CKD-EPI)AfAm 63 (>60 ml/min/1.73 sqM) Est GFR (CKD-EPI)NonAf 54 (>60 ml/min/1.73 sqM) Glucose 56 L (74-99) mg/dL Calcium 9.0 (8.4-10.2) mg/dL Magnesium 1.9 (1.6-2.3) mg/dL Total Bilirubin 0.2 (0.2-1.3) mg/dL AST 78 H (14-36) U/L ALT 48 H (4-34) U/L Alkaline Phosphatase 145 H (38-126) U/L Troponin I (0.000-0.034) ng/mL Total Protein 6.5 (6.3-8.2) g/dL Albumin 3.7 (3.5-5.0) g/dL 12/07/19 Range/Units 13:43 WBC (3.8-10.6) k/uL RBC (3.80-5.40) m/uL Hgb (11.4-16.0) gm/dL Hct (34.0-46.0) % MCV (80.0-100.0) fL MCH (25.0-35.0) pg MCHC (31.0-37.0) g/dL RDW (11.5-15.5) % Plt Count (150-450) k/uL Neutrophils % (Manual) % Lymphocytes % (Manual) % Monocytes % (Manual) % Eosinophils % (Manual) % Basophils % (Manual) % Neutrophils # (Manual) (1.3-7.7) k/uL Lymphocytes # (Manual) (1.0-4.8) k/uL Monocytes # (Manual) (0-1.0) k/uL Eosinophils # (Manual) (0-0.7) k/uL Basophils # (Manual) (0-0.2) k/uL Nucleated RBCs (0-0) /100 WBC Manual Slide Review RBC Morphology PT (9.0-12.0) sec INR (<1.2) APTT (22.0-30.0) sec D-Dimer (<0.60) mg/L FEU Sodium (137-145) mmol/L Potassium (3.5-5.1) mmol/L Chloride (98-107) mmol/L Carbon Dioxide (22-30) mmol/L Anion Gap mmol/L BUN (7-17) mg/dL Creatinine (0.52-1.04) mg/dL Est GFR (CKD-EPI)AfAm (>60 ml/min/1.73 sqM) Est GFR (CKD-EPI)NonAf (>60 ml/min/1.73 sqM) Glucose (74-99) mg/dL Calcium (8.4-10.2) mg/dL Magnesium (1.6-2.3) mg/dL Total Bilirubin (0.2-1.3) mg/dL AST (14-36) U/L ALT (4-34) U/L Alkaline Phosphatase (38-126) U/L Troponin I <0.012 (0.000-0.034) ng/mL Total Protein (6.3-8.2) g/dL Albumin (3.5-5.0) g/dL - Radiology Data Radiology results: image reviewed (Chest x-ray shows no acute) Disposition Clinical Impression: Chest pain Disposition: ADMITTED IP TO THIS [facility] Is patient prescribed a controlled substance at d/c from ED?: No Referrals: Markus Nicole MD [Primary Care Provider] - 1-2 days Decision Time: 15:23
--- NOTE | 2019-12-07 14:25 | XR ---
EXAMINATION TYPE: XR chest 2V DATE OF EXAM: 12/07/2019 COMPARISON: Chest x-ray December 31, 2017 HISTORY: Chest pain and dizziness. TECHNIQUE: Frontal and lateral views of the chest are obtained. FINDINGS: There is chronic parenchymal change bilaterally without suspicious focal air space opacity , pleural effusion, or pneumothorax seen. The cardiac silhouette size is upper limits of normal. Ove rlying EKG leads. The osseous structures are are demineralized. Surgical sutures in the left upper a bdomen noted. IMPRESSION: Chronic changes without acute pulmonary process.
[2019-12-07 14:34] LABS: Albumin 3.7 g/dL (3.5-5.0); Magnesium 1.9 mg/dL (1.6-2.3); Potassium 4.8 mmol/L (3.5-5.1); Total Bilirubin 0.2 mg/dL (0.2-1.3); Total Protein 6.5 g/dL (6.3-8.2)
[2019-12-07 14:38] LABS: D-Dimer 0.41 mg/L FEU (<0.60); Partial Thromboplastin Time 26.1 sec (22.0-30.0); Prothrombin Time 10.6 sec (9.0-12.0)
[2019-12-07 14:43] LABS: HCT 35.1 % (34.0-46.0); HGB 10.9 gm/dL (11.4-16.0); MCH 28.6 pg (25.0-35.0); MCV 92.4 fL (80.0-100.0); Mean Platelet Volume 6.6; Platelet Count 334 k/uL (150-450); RDW 15.9 % (11.5-15.5); WBC 4.7 k/uL (3.8-10.6)
[2019-12-07 15:14] LABS: Basophils # (M) 0.05 k/uL (0-0.2); Eosinophils # (M) 0.19 k/uL (0-0.7); Lymphocytes # (M) 2.49 k/uL (1.0-4.8); Monocytes # (M) 0.61 k/uL (0-1.0); Neutrophils # (M) 1.36 k/uL (1.3-7.7); Neutrophils % (M) 29 %; Nucleated Red Blood Cells 0 /100 WBC (0-0); Total Cells Counted 100
[2019-12-07] MEDS ORDERED: NITROGLYCERIN SL TABS 0.4 MG TAB SUBLINGUAL PRN (15:24)
[2019-12-07] MEDS ORDERED: QUEtiapine 50 MG TAB PO PRN (15:52)
[2019-12-07] MEDS: HYDROcodone/APAP 5-325MG 1 EACH TAB PO SCH (16:02)
--- NOTE | 2019-12-07 17:03 | US ---
EXAMINATION TYPE: US gallbladder DATE OF EXAM: 12/07/2019 COMPARISON: NONE CLINICAL HISTORY: Elevated liver enzymes. EXAM MEASUREMENTS: Liver Length: cm Gallbladder Wall: Surgically absent cm CBD: 1.7 cm Right Kidney: 9.2 x 3.4 x 4.1 cm Patient had cholecystectomy 4 moths prior. She is having RUQ pain. Pancreas: Obscured by bowel gas Liver: wnl, intrahepatic ducts dilated Gallbladder: Surgically absent Evidence for sonographic Deleon's sign: no CBD: dilated Right Kidney: Superior pole obscured by overlying bowel gas IMPRESSION: Moderate extrahepatic and intrahepatic biliary dilatation. Follow-up advised.
[2019-12-07] MEDS: GABAPENTIN 300 MG CAP PO SCH ×2 (17:04→22:03)
[2019-12-07 18:38] LABS: Glucose,Whole Blood 133 mg/dL (75-99)
[2019-12-07 18:58] LABS: Glucose,Whole Blood 130 mg/dL (75-99)
[2019-12-07] MEDS: HYDROmorphone 0.5 MG/0.5 ML SYRINGE IVP PRN ×2 (19:18→23:12)
[2019-12-07] MEDS: NITROGLYCERIN OINT 1 INCH/GM PACKET TOPICAL SCH (20:08)
[2019-12-07] MEDS: clonazePAM 0.5 MG TAB PO PRN (22:03)
[2019-12-07] MEDS: DULoxetine HCL 60 MG CAPSULE.DR PO SCH (22:03)
[2019-12-08] MEDS: NITROGLYCERIN OINT 1 INCH/GM PACKET TOPICAL SCH ×2 (00:08→06:07)
[2019-12-08] MEDS: HYDROcodone/APAP 5-325MG 1 EACH TAB PO SCH ×3 (00:08→15:57)
[2019-12-08 04:08] LABS: Cholesterol 135 mg/dL (<200); HDL Cholesterol 76 mg/dL (40-60)
[2019-12-08 04:26] LABS: LDL Cholesterol,Calculated 35 mg/dL (0-99); Triglycerides 118 mg/dL (<150)
[2019-12-08] MEDS: HYDROmorphone 0.5 MG/0.5 ML SYRINGE IVP PRN ×5 (06:06→20:28)
--- NOTE | 2019-12-08 08:37 | P.HPIM ---
History of Present Illness H&P Date: 12/08/19 Chief Complaint: Sternal chest pain This is a history of physical 74-year-old black female with history of cholecystectomy some in the office yesterday related to xiphoid epigastric type pain. She was given medicine for comfort. As she struggles with DJD elements. The pain became worse and she became dizzy. The patient then was evaluated and shown to have dilated ducts on ultrasound of the liver. She's had history of cholecystectomy in the past. She now complains of right upper quadrant pain. GI and cardiology consulted. No enzymatic elevation is noted. Review of Systems Constitutional: Denies chills, Denies fever Eyes: denies blurred vision, denies pain Ears, nose, mouth and throat: Denies headache, Denies sore throat Cardiovascular: Reports as per HPI, Reports chest pain, Denies rapid heart beat, Denies shortness of breath Respiratory: Denies cough Gastrointestinal: Denies abdominal pain, Denies diarrhea, Denies nausea, Denies vomiting Genitourinary: Denies dysuria, Denies hematuria Past Medical History Past Medical History: COPD, GERD/Reflux, Osteoarthritis (OA) Additional Past Medical History / Comment(s): chronic pain, hemorrhoids, gastric ulcer. History of Any Multi-Drug Resistant Organisms: None Reported Past Surgical History: Bowel Resection, Hernia Repair Additional Past Surgical History / Comment(s): hemorrhoidectomy Past Anesthesia/Blood Transfusion Reactions: No Reported Reaction Past Psychological History: Anxiety, Depression Smoking Status: Current every day smoker Past Alcohol Use History: None Reported Past Drug Use History: None Reported - Past Family History Mother Family Medical History: No Reported History Additional Family Medical History / Comment(s): still living at age of 96 and gets around well. Father Family Medical History: Cancer Additional Family Medical History / Comment(s): lung cancer at age of 75 Medications and Allergies Home Medications Medication Instructions Recorded Confirmed Type RX: Gabapentin [Neurontin] 300 mg PO TID 01/30/17 12/07/19 History RX: HYDROcodone/APAP 5-325MG 1 tab PO Q8H 02/24/19 12/07/19 History [[place] 5-325] DULoxetine HCL [Cymbalta] 90 mg PO HS 12/07/19 12/07/19 History QUEtiapine [SEROquel] 100 mg PO HS 12/07/19 12/07/19 History clonazePAM [KlonoPIN] 1 mg PO BID PRN 12/07/19 12/07/19 History Allergies Allergy/AdvReac Type Severity Reaction Status Date / Time iodine Allergy Anaphylaxis Verified 12/07/19 17:09 shellfish derived [Shellfish] Allergy Anaphylaxis Verified 12/07/19 17:09 Physical Exam Vitals: Vital Signs Temp Pulse Pulse Resp BP BP Pulse Ox 12/08/19 08:05 97.9 F 78 16 131/68 94 L 12/08/19 03:00 97.8 F 75 18 116/71 97 12/07/19 19:40 97.7 F 72 16 126/73 98 12/07/19 18:55 97.7 F 90 16 136/83 100 12/07/19 17:04 74 17 125/79 97 12/07/19 15:29 78 16 130/69 97 12/07/19 13:42 98.8 F 81 18 134/66 98 Intake and Output 12/07/19 12/08/19 12/08/19 22:59 06:59 14:59 Intake Total 0 Balance 0 Intake: Oral 0 Other: Voiding Method Toilet Toilet # Voids 1 1 Weight 44.452 kg - Constitutional General appearance: no acute distress - EENT Eyes: EOMI - Neck Neck: no lymphadenopathy - Respiratory Respiratory: bilateral: CTA - Cardiovascular Rhythm: regular Heart sounds: normal: S1, S2 Abnormal Heart Sounds: no S3 Gallop - Gastrointestinal General gastrointestinal: soft, no tenderness - Integumentary Integumentary: no cyanotic - Neurologic Neurologic: CNII-XII intact - Psychiatric Psychiatric: A&O x's 3, appropriate affect Results CBC & Chem 7: 12/07/19 13:43 12/07/19 13:43 Labs: Abnormal Lab Results - Last 24 Hours (Table) 12/07/19 12/07/19 12/07/19 Range/Units 13:43 13:43 13:43 Hgb 10.9 L (11.4-16.0) gm/dL RDW 15.9 H (11.5-15.5) % Chloride 111 H (98-107) mmol/L Carbon Dioxide 21 L (22-30) mmol/L Glucose 56 L (74-99) mg/dL POC Glucose (mg/dL) (75-99) mg/dL AST 78 H (14-36) U/L ALT 48 H (4-34) U/L Alkaline Phosphatase 145 H (38-126) U/L HDL Cholesterol 76 H (40-60) mg/dL 12/07/19 12/07/19 Range/Units 18:37 18:56 Hgb (11.4-16.0) gm/dL RDW (11.5-15.5) % Chloride (98-107) mmol/L Carbon Dioxide (22-30) mmol/L Glucose (74-99) mg/dL POC Glucose (mg/dL) 133 H 130 H (75-99) mg/dL AST (14-36) U/L ALT (4-34) U/L Alkaline Phosphatase (38-126) U/L HDL Cholesterol (40-60) mg/dL Thrombosis Risk Factor Assmnt - Choose All That Apply Any of the Below Risk Factors Present?: Yes Each Factor Represents 1 point: Abnormal pulmonary function (COPD) Other Risk Factors: Yes Each Risk Factor Represents 3 Points: Age 75 years or older Thrombosis Risk Factor Assessment Total Risk Factor Score: 4 Thrombosis Risk Factor Assessment Level: Moderate Risk Assessment and Plan (1) Chest pain Current Visit: Yes Status: Acute Code(s): R07.9 - CHEST PAIN, UNSPECIFIED SNOMED Code(s): 27320002 (2) Right upper quadrant abdominal pain Current Visit: No Status: Acute Code(s): R10.11 - RIGHT UPPER QUADRANT PAIN SNOMED Code(s): 526785827 (3) Smoker Current Visit: No Status: Acute Code(s): F17.200 - NICOTINE DEPENDENCE, UNSPECIFIED, UNCOMPLICATED SNOMED Code(s): 84863829 (4) Transaminitis Current Visit: No Status: Acute Code(s): R74.0 - NONSPEC ELEV OF LEVELS OF TRANSAMNS & LACTIC ACID DEHYDRGNSE SNOMED Code(s): 598182118 Plan: I suspect more pain related to transaminitis. Discussed tobacco cessation with her history of COPD. Go ahead and start albuterol updrafts. Await cardiology and GI evaluation. Dr. Ludwig's group will be comfortable weekend. Time with Patient: Greater than 30
[2019-12-08] MEDS ORDERED: ASPIRIN 325 MG TAB PO SCH (09:00)
[2019-12-08] MEDS: GABAPENTIN 300 MG CAP PO SCH ×3 (09:18→20:28)
[2019-12-08] MEDS: ASPIRIN 81 MG PO SCH (09:19)
[2019-12-08] MEDS: clonazePAM 0.5 MG TAB PO PRN (09:28)
--- NOTE | 2019-12-08 10:35 | P.CRDCN ---
History of Present Illness Consult date: 12/08/19 Consult reason: chest pain Chief complaint: Chest pain History of present illness: This is a pleasant 74-year-old -[place] female with history of COPD, GERD, nicotine dependence, occasional EtOH use, anxiety, who presents to the hospital with symptoms of mid epigastric pain and discomfort with intermittent dizziness. Her EKG on presentation here showed a normal sinus rhythm with no acute changes. Chest x-ray showed chronic changes with no acute process. Blood pressure 130/60 with a heart rate of 7094% on room air. White blood cell count 4.7, hemoglobin 10.9, platelet count 334. D-dimer 0.41, sodium 141, potassium 4.8, BUN 17, creatinine 1.0. Troponin 0.01 2.01 2.014 AST is 78 ALT 48 and alk phos 145. Gallbladder ultrasound was performed which showed mild biliary diastolic dictation. My examination this morning patient was complaining of some mid epigastric discomfort, worse with pressing on that area. She was having some right upper quadrant tenderness as well. Past Medical History Past Medical History: COPD, GERD/Reflux, Osteoarthritis (OA) Additional Past Medical History / Comment(s): chronic pain, hemorrhoids, gastric ulcer. History of Any Multi-Drug Resistant Organisms: None Reported Past Surgical History: Bowel Resection, Hernia Repair Additional Past Surgical History / Comment(s): hemorrhoidectomy Past Anesthesia/Blood Transfusion Reactions: No Reported Reaction Past Psychological History: Anxiety, Depression Smoking Status: Current every day smoker Past Alcohol Use History: None Reported Past Drug Use History: None Reported - Past Family History Mother Family Medical History: No Reported History Additional Family Medical History / Comment(s): still living at age of 96 and gets around well. Father Family Medical History: Cancer Additional Family Medical History / Comment(s): lung cancer at age of 75 Medications and Allergies Home Medications Medication Instructions Recorded Confirmed Type Gabapentin [Neurontin] 300 mg PO TID 01/30/17 12/07/19 History HYDROcodone/APAP 5-325MG [[place] 1 tab PO Q8H 02/24/19 12/07/19 History 5-325] DULoxetine HCL [Cymbalta] 90 mg PO HS 12/07/19 12/07/19 History QUEtiapine [SEROquel] 100 mg PO HS 12/07/19 12/07/19 History clonazePAM [KlonoPIN] 1 mg PO BID PRN 12/07/19 12/07/19 History Allergies Allergy/AdvReac Type Severity Reaction Status Date / Time iodine Allergy Anaphylaxis Verified 12/07/19 17:09 shellfish derived [Shellfish] Allergy Anaphylaxis Verified 12/07/19 17:09 Physical Exam Vitals: Vital Signs Temp Pulse Pulse Resp BP BP Pulse Ox 12/08/19 08:05 97.9 F 78 16 131/68 94 L 12/08/19 03:00 97.8 F 75 18 116/71 97 12/07/19 19:40 97.7 F 72 16 126/73 98 12/07/19 18:55 97.7 F 90 16 136/83 100 12/07/19 17:04 74 17 125/79 97 12/07/19 15:29 78 16 130/69 97 12/07/19 13:42 98.8 F 81 18 134/66 98 Intake and Output 12/07/19 12/08/19 12/08/19 22:59 06:59 14:59 Intake Total 0 Balance 0 Intake: Oral 0 Other: Voiding Method Toilet Toilet # Voids 1 1 Weight 44.452 kg PHYSICAL EXAMINATION: GENERAL: 74-year-old -[place] female in no acute distress at the time of my examination HEENT: Head is atraumatic, normocephalic. Pupils equal, round. Sclera anicteric. Conjunctiva are clear. Mucous membranes of the mouth are moist. Neck is supple. There is no elevated jugular venous pressure. No carotid] bruit is heard. HEART EXAMINATION: Heart S1, S2 normal. No murmur or gallop heard. CHEST EXAMINATION: Reveal some fine scattered wheezing throughout ABDOMEN: Soft, mild right upper quadrant tenderness, mild tenderness at the epigastric area . Bowel sounds are heard. No organomegaly noted. EXTREMITIES: 2+ peripheral pulses with no evidence of peripheral edema and no calf tenderness noted. NEUROLOGIC patient is awake, alert and oriented 3 . Results 12/07/19 13:43 12/07/19 13:43 Cardiac Enzymes 12/07/19 12/07/19 12/07/19 Range/Units 13:43 13:43 16:58 AST 78 H (14-36) U/L Troponin I <0.012 <0.012 (0.000-0.034) ng/mL 12/07/19 Range/Units 19:21 AST (14-36) U/L Troponin I 0.014 (0.000-0.034) ng/mL Coagulation 12/07/19 Range/Units 13:43 PT 10.6 (9.0-12.0) sec APTT 26.1 (22.0-30.0) sec Lipids 12/07/19 Range/Units 13:43 Triglycerides 118 (<150) mg/dL Cholesterol 135 (<200) mg/dL HDL Cholesterol 76 H (40-60) mg/dL CBC 12/07/19 Range/Units 13:43 WBC 4.7 (3.8-10.6) k/uL RBC 3.80 (3.80-5.40) m/uL Hgb 10.9 L (11.4-16.0) gm/dL Hct 35.1 (34.0-46.0) % Plt Count 334 (150-450) k/uL Comprehensive Metabolic Panel 12/07/19 Range/Units 13:43 Sodium 141 (137-145) mmol/L Potassium 4.8 (3.5-5.1) mmol/L Chloride 111 H (98-107) mmol/L Carbon Dioxide 21 L (22-30) mmol/L BUN 17 (7-17) mg/dL Creatinine 1.02 (0.52-1.04) mg/dL Glucose 56 L (74-99) mg/dL Calcium 9.0 (8.4-10.2) mg/dL AST 78 H (14-36) U/L ALT 48 H (4-34) U/L Alkaline Phosphatase 145 H (38-126) U/L Total Protein 6.5 (6.3-8.2) g/dL Albumin 3.7 (3.5-5.0) g/dL Current Medications Generic Name Dose Route Start Last Admin Trade Name Freq PRN Reason Stop Dose Admin Hydrocodone Bitart/Acetaminophen 1 each 12/07/19 16:00 12/08/19 09:18 Hydrocodone/Apap 5-325mg 1 Each Tab PO Not Given Q8H PAT Aspirin 81 mg 12/08/19 09:00 12/08/19 09:19 Aspirin 81 Mg PO 81 mg DAILY PAT Administration Clonazepam 0.5 mg 12/07/19 15:52 12/08/19 09:28 Clonazepam 0.5 Mg Tab PO 0.5 mg BID PRN Administration Anxiety Duloxetine HCl 60 mg 12/07/19 21:00 12/07/19 22:03 Duloxetine Hcl 60 Mg Capsule.Dr PO 60 mg HS PAT Administration Gabapentin 300 mg 12/07/19 16:00 12/08/19 09:18 Gabapentin 300 Mg Cap PO 300 mg TID PAT Administration Hydromorphone HCl 0.5 mg 12/07/19 19:01 12/08/19 09:29 Hydromorphone 0.5 Mg/0.5 Ml Syringe IVP 0.5 mg Q3HR PRN Administration Pain Nitroglycerin 0.4 mg 12/07/19 15:24 Nitroglycerin Sl Tabs 0.4 Mg Tab SUBLINGUAL Q5M PRN Chest Pain Quetiapine Fumarate 50 mg 12/07/19 15:52 12/07/19 22:34 Quetiapine 50 Mg Tab PO 50 mg HS PRN Administration SLEEP Intake and Output 12/07/19 12/08/19 12/08/19 22:59 06:59 14:59 Intake Total 0 Balance 0 Intake: Oral 0 Other: Voiding Method Toilet Toilet # Voids 1 1 Weight 44.452 kg 12/07/19 13:43 12/07/19 13:43 EKG Interpretations (text) EKG shows normal sinus rhythm with no acute changes. Assessment and Plan Plan: Assessment and plan #1 mid epigastric discomfort, atypical for acute coronary syndrome. Troponins 0.012, 0.012, 0.014. EKG shows normal sinus rhythm with no acute change #2 elevated liver enzymes with right upper quadrant tenderness. Gallbladder ultrasound showed moderate biliary dilated dictation #3 COPD #4 nicotine dependence #5 occasional EtOH use #6 anxiety Plan We will obtain an echocardiogram with Doppler study. Patient will be worked up for her abnormal liver enzymes, as an outpatient we recommend she undergo stress testing. Further recommendations to follow. DNP note has been reviewed, I agree with a documented findings and plan of care. Patient was seen and examined.
[2019-12-08] MEDS ORDERED: LORazepam 1 MG TAB PO PRN (10:59)
--- NOTE | 2019-12-08 13:00 | ECHOF ---
Referral Reason:chest pain MEASUREMENTS -------- HEIGHT: 172.7 cm WEIGHT: 44.5 kg BP: RVIDd: 2.7 cm (< 3.3) IVSd: 0.9 cm (0.6 - 1.1) LVIDd: 3.2 cm (3.9 - 5.3) LVPWd: 0.9 cm (0.6 - 1.1) IVSs: 1.3 cm LVIDs: 2.3 cm LVPWs: 0.9 cm Ao Diam: 2.9 cm (2.0 - 3.7) AV Cusp: 1.6 cm (1.5 - 2.6) LA Diam: 4.0 cm (2.7 - 3.8) MV EXCURSION: 14.230 mm (> 18.000) MV EF SLOPE: 79 mm/s (70 - 150) EPSS: 0.3 cm MV E Jeffery: 0.97 m/s MV DecT: 132 ms MV A Jeffery: 1.09 m/s MV E/A Ratio: 0.89 RAP: 5.00 mmHg RVSP: 18.36 mmHg FINDINGS -------- Sinus rhythm. This was a technically good study. LV size, wall thickness and systolic function are normal, with an EF greater than 55%. The left brittney tricular size is normal. The right ventricle is normal in size. The left atrial size is normal. The right atrial size is normal. The aortic valve is trileaflet, and appears structurally normal. No aortic stenosis or regurgitation. Mild mitral regurgitation is present. Mild tricuspid regurgitation present. Right ventricular systolic pressure is normal at < 35 mmHg. There is no pulmonic regurgitation present. The aortic root size is normal. There is no pericardial effusion. CONCLUSIONS -------- 1. Sinus rhythm. 2. This was a technically good study. 3. LV size, wall thickness and systolic function are normal, with an EF greater than 55%. 4. The left ventricular size is normal. 5. The right ventricle is normal in size. 6. The left atrial size is normal. 7. The right atrial size is normal. 8. Mild mitral regurgitation is present. 9. Mild tricuspid regurgitation present. 10. There is no pulmonic regurgitation present. 11. There is no pericardial effusion. BRIDGE WELDER: Angy Townsend RDCS
[2019-12-08] MEDS: DEXTROSE 5%-0.45% NACL 1,000 ML IV SCH (14:00)
--- NOTE | 2019-12-08 15:40 | MR ---
EXAMINATION TYPE: MR MRCP DATE OF EXAM: 12/08/2019 COMPARISON: Gallbladder ultrasound December 07, 2019 and older ultrasound July 11, 2018. CT 2008. HISTORY: Abnormal ultrasound. CBD dilatation. Elevated liver enzymes. Standard multiplanar, multisequence MRI departmental protocol Multiplanar, multisequence images of the abdomen were acquired. Thin and thick slice MRCP imaging per formed on MRI scanner. FINDINGS: Exam noted suboptimal as patient unable to hold breath.r Liver/gallbladder/pancreas/biliary system: Liver is normal in size. There is confirmation of moderate central intrahepatic and extra hepatic biliary dilatation. Gallbladder noted surgically absent. Ther e is now moderate pancreatic ductal dilatation. Motion artifact and rotation on MRCP images. Findings better evaluated on T2 coronal weighted images. Common bile duct measures up to 17 mm near julia hep atis with gradual tapering towards the ampulla. Main pancreatic duct measures up to 8 mm in the proxi mal body coronal image 10 with some tapering towards the ampulla. No obvious filling defects or mass. Finding new from [address] No suspicious masses identified in the pancreas or lorraine er. Other: Lung bases are clear. Spleen and both adrenal glands are felt within normal limits. Simple rashad earing 1.0 cm thin-walled cyst mid to lower pole of the left kidney with tiny cysts laterally lower p ole of the right kidney. No hydronephrosis bilaterally. Patient is very little intra-abdominal fat. N o suspicious bowel dilatation. Visualized osseous structures are intact. Prominent diverticula in the left and sigmoid colon are noted. IMPRESSION: Confirmation of new moderate central intrahepatic and extra hepatic biliary dilatation. N ew moderate diffuse pancreatic ductal dilatation with gradual tapering towards the ampulla. No obviou s filling defect or mass. Ampullary mass needs to be excluded. Further investigation with ERCP as war ranted.
[2019-12-08] MEDS ORDERED: ALBUTEROL HFA INHALER INHALATION PRN ×2 (16:29→16:32)
[2019-12-08] MEDS ORDERED: ALBUTEROL NEBULIZED 2.5 MG/3 ML INHALATION PRN (16:30)
[2019-12-08] MEDS: PANTOPRAZOLE 40 MG/10 ML VIAL IVP SCH (20:28)
[2019-12-08] MEDS: DULoxetine HCL 60 MG CAPSULE.DR PO SCH (20:28)
[2019-12-08 21:56] LABS: Hepatitis A Antibody IgM Non-Reactive (Non-Reactive); Hepatitis B Core IgM Non-Reactive (Non-Reactive); Hepatitis B Surface Antigen Non-Reactive (Non-Reactive); Hepatitis C IgG Antibody Non-Reactive (Non-Reactive)
[2019-12-09] MEDS: HYDROcodone/APAP 5-325MG 1 EACH TAB PO SCH ×2 (00:48→07:42)
[2019-12-09] MEDS: DEXTROSE 5%-0.45% NACL 1,000 ML IV SCH (03:31)
[2019-12-09] MEDS: HYDROmorphone 0.5 MG/0.5 ML SYRINGE IVP PRN ×3 (06:04→12:37)
[2019-12-09] MEDS: GABAPENTIN 300 MG CAP PO SCH (07:43)
[2019-12-09] MEDS: PANTOPRAZOLE 40 MG/10 ML VIAL IVP SCH (07:43)
[2019-12-09] MEDS: ASPIRIN 81 MG PO SCH (07:43)
[2019-12-09 08:08] LABS: ALT 41 U/L (4-34); AST 50 U/L (14-36); African American GFR (CKD) >90 (>60 ml/min/1.73 sqM); Albumin 3.3 g/dL (3.5-5.0); Alkaline Phosphatase 144 U/L (38-126); Anion Gap 5 mmol/L; Blood Urea Nitrogen 9 mg/dL (7-17); Calcium 8.6 mg/dL (8.4-10.2); Carbon Dioxide 25 mmol/L (22-30); Chloride 109 mmol/L (98-107); Glucose 93 mg/dL (74-99); Non-African American GFR(CKD) 87 (>60 ml/min/1.73 sqM); Potassium 4.9 mmol/L (3.5-5.1); Sodium 139 mmol/L (137-145); Total Bilirubin 0.3 mg/dL (0.2-1.3); Total Protein 5.9 g/dL (6.3-8.2)
[2019-12-09 08:33] VITALS: BP 163/83; PULSE 73; RESP 16; TEMP 98.6
--- NOTE | 2019-12-09 09:21 | P.CONS ---
History of Present Illness - Reason for Consult Consult date: 12/08/19 Abdominal pain Requesting physician: Markus Nicole - Chief Complaint Abdominal pain - History of Present Illness 74-year-old female with a medical history significant for COPD, GERD, tobacco abuse, alcohol use and anxiety who presented to the hospital with complaints of abdominal pain and dizziness. The patient reports pain described as severe in the epigastric region of her abdomen. She reports some associated nausea with no vomiting. She also reports some dizziness with the episode. Previously the patient had cholecystectomy for symptomatic cholelithiasis in 06/2018. She also has a history of peptic ulcer disease as well as bowel resection. She denies any signs or symptoms of GI bleed. She does report daily Excedrin use. She believes her last EGD was 2 years ago. Laboratory evaluation on presentation significant for WBC 4.7, hemoglobin 10.9, blood count 334,000, total bilirubin 0.2, alkaline phosphatase 145, AST 78 and ALT 48. Lipase was 159 on prese ntation. Ultrasound abdomen with moderate findings of intra-and extrahepatic biliary dilation. Review of Systems REVIEW OF SYSTEMS: CONSTITUTIONAL: Denies any fevers, chills, weight change or fatigue. CARDIOVASCULAR: Denies any chest pain, palpitations high or low blood pressures RESPIRATORY: Denies any shortness of breath, hemoptysis or cough. GENITOURINARY: No dysuria or hematuria. MUSCULOSKELETAL: No weakness reported. SKIN: Denies any new rashes or lesions, jaundice or pallor. PSYCHIATRIC: Denies any depression or anxiety. NEUROLOGY: Denies headache, denies any new focal deficits, did report some dizziness on presentation. EARS/NOSE/THROAT: No recent hearing change, congestion, nasal discharge or sore throat. EYES: No pain in eyes, discharge or change in vision. GASTROINTESTINAL: As per HPI. Past Medical History Past Medical History: COPD, GERD/Reflux, Osteoarthritis (OA) Additional Past Medical History / Comment(s): chronic pain, hemorrhoids, gastric ulcer. History of Any Multi-Drug Resistant Organisms: None Reported Past Surgical History: Bowel Resection, Hernia Repair Additional Past Surgical History / Comment(s): hemorrhoidectomy Past Anesthesia/Blood Transfusion Reactions: No Reported Reaction Past Psychological History: Anxiety, Depression Smoking Status: Current every day smoker Past Alcohol Use History: None Reported Past Drug Use History: None Reported - Past Family History Mother Family Medical History: No Reported History Additional Family Medical History / Comment(s): still living at age of 96 and gets around well. Father Family Medical History: Cancer Additional Family Medical History / Comment(s): lung cancer at age of 75 Medications and Allergies Home Medications Medication Instructions Recorded Confirmed Type Gabapentin [Neurontin] 300 mg PO TID 01/30/17 12/07/19 History HYDROcodone/APAP 5-325MG [[place] 1 tab PO Q8H 02/24/19 12/07/19 History 5-325] DULoxetine HCL [Cymbalta] 90 mg PO HS 12/07/19 12/07/19 History QUEtiapine [SEROquel] 100 mg PO HS 12/07/19 12/07/19 History clonazePAM [KlonoPIN] 1 mg PO BID PRN 12/07/19 12/07/19 History Allergies Allergy/AdvReac Type Severity Reaction Status Date / Time iodine Allergy Anaphylaxis Verified 12/07/19 17:09 shellfish derived [Shellfish] Allergy Anaphylaxis Verified 12/07/19 17:09 Physical Exam Vitals: Vital Signs Temp Pulse Pulse Resp BP BP Pulse Ox 12/08/19 09:00 16 12/08/19 08:05 97.9 F 78 16 131/68 94 L 12/08/19 03:00 97.8 F 75 18 116/71 97 12/07/19 19:40 97.7 F 72 16 126/73 98 12/07/19 18:55 97.7 F 90 16 136/83 100 12/07/19 17:04 74 17 125/79 97 12/07/19 15:29 78 16 130/69 97 Intake and Output 12/07/19 12/08/19 12/08/19 22:59 06:59 14:59 Intake Total 0 Balance 0 Intake: Oral 0 Other: Voiding Method Toilet Toilet Toilet # Voids 1 1 2 Weight 44.452 kg On physical examination, patient appears comfortable in no apparent distress. HEAD: Normocephalic, atraumatic. EYES: No scleral icterus. No conjunctival injection. MOUTH: No lesions, tongue midline. NECK: Trachea midline, no gross abnormalities. CHEST: decreased air entry in all lung [place]. HEART: S1-S2 appreciated. ABDOMEN: Soft, thin and mildly tender to palpation. Bowel sounds are positive. No organomegaly. No guarding or rigidity. EXTREMITIES: No pedal edema. SKIN: No rashes, no jaundice. NEUROLOGIC: Alert and oriented x3. No focal deficits. Results CBC & Chem 7: 12/07/19 13:43 12/09/19 06:47 Labs: Abnormal Lab Results - Last 24 Hours (Table) 12/07/19 12/07/19 12/07/19 Range/Units 13:43 13:43 13:43 Hgb 10.9 L (11.4-16.0) gm/dL RDW 15.9 H (11.5-15.5) % Chloride 111 H (98-107) mmol/L Carbon Dioxide 21 L (22-30) mmol/L Glucose 56 L (74-99) mg/dL POC Glucose (mg/dL) (75-99) mg/dL AST 78 H (14-36) U/L ALT 48 H (4-34) U/L Alkaline Phosphatase 145 H (38-126) U/L HDL Cholesterol 76 H (40-60) mg/dL 12/07/19 12/07/19 Range/Units 18:37 18:56 Hgb (11.4-16.0) gm/dL RDW (11.5-15.5) % Chloride (98-107) mmol/L Carbon Dioxide (22-30) mmol/L Glucose (74-99) mg/dL POC Glucose (mg/dL) 133 H 130 H (75-99) mg/dL AST (14-36) U/L ALT (4-34) U/L Alkaline Phosphatase (38-126) U/L HDL Cholesterol (40-60) mg/dL US - abdomen: report reviewed (Ultrasound abdomen with moderate findings of intra-and extrahepatic biliary dilation.) Assessment and Plan (1) Abdominal pain Narrative/Plan: 74-year-old female with multiple medical comorbidities including a prior history of peptic ulcer disease and status post cholecystectomy in 2019 who presented to the hospital with complaints of abdominal pain. She reports severe epigastric abdominal pain with associated nausea and no vomiting. No signs or symptoms of GI bleed. The patient does take Excedrin daily. Mild elevation of liver enzymes predominantly in a hepatocellular pattern with normal total b ilirubin and no evidence of obstruction with total bilirubin 0.2, alkaline phosphatase 145, AST 78 and ALT 48. Ultrasound of the abdomen did show intra- and extrahepatic biliary dilation. Unknown etiology, biliary dilation likely related to postcholecystectomy state however cannot rule out choledocholithiasis although liver enzymes not elevated in a obstructive pattern, differential also includes gastritis, esophagitis, peptic ulcer disease or other etiology. Current Visit: Yes Status: Acute Code(s): R10.9 - UNSPECIFIED ABDOMINAL PAIN SNOMED Code(s): 51695914 (2) Transaminitis Current Visit: No Status: Acute Code(s): R74.0 - NONSPEC ELEV OF LEVELS OF TRANSAMNS & LACTIC ACID DEHYDRGNSE SNOMED Code(s): 427569909 Plan: supportive care Clear liquid diet PPI therapy ordered with Protonix Continue to monitor CBC, BMP, LFTs MRCP will be ordered to rule out choledocholithiasis Further recommendations pending findings of MRCP thank you for allowing us to participate in the care of the patient we will continue to follow
--- NOTE | 2019-12-09 13:12 | P.PN ---
Subjective Progress Note Date: 12/09/19 Principal diagnosis: abdominal pain, transaminitis, biliary dilation patient is seen lying in bed in no acute complaints. She is tolerated diet with improvement in abdominal pain, however still having some right lower abdominal pain and flank pain. Objective - Vital Signs Vital signs: Vital Signs Temp 98.6 F 12/09/19 07:40 Pulse 73 12/09/19 08:36 Resp 16 12/09/19 08:36 BP 163/83 12/09/19 07:40 Pulse Ox 96 12/09/19 07:40 Intake & Output 12/08/19 12/09/19 12/09/19 18:59 06:59 18:59 Intake Total 1390 Balance 1390 Intake: Intake, IV Titration 700 Amount Dextrose 5%-0.45% NaCl 1, 700 000 ml @ 75 mls/hr IV . [id number] PAT Rx#:[id number] Oral 690 Other: Voiding Method Toilet Toilet Toilet # Voids 2 1 - Exam On physical examination, patient appears comfortable in no apparent distress. HEAD: Normocephalic, atraumatic. EYES: No scleral icterus. No conjunctival injection. MOUTH: No lesions, tongue midline. NECK: Trachea midline, no gross abnormalities. ABDOMEN: Soft, thin. Bowel sounds are positive. No organomegaly. No guarding or rigidity. EXTREMITIES: No pedal edema. SKIN: No rashes, no jaundice. NEUROLOGIC: Alert and oriented x3. No focal deficits. - Labs CBC & Chem 7: 12/07/19 13:43 12/09/19 06:47 Labs: Abnormal Lab Results - Last 24 Hours (Table) 12/09/19 Range/Units 06:47 Chloride 109 H (98-107) mmol/L AST 50 H (14-36) U/L ALT 41 H (4-34) U/L Alkaline Phosphatase 144 H (38-126) U/L Total Protein 5.9 L (6.3-8.2) g/dL Albumin 3.3 L (3.5-5.0) g/dL Assessment and Plan (1) Abdominal pain Narrative/Plan: 74-year-old female with multiple medical comorbidities including a prior history of peptic ulcer disease and status post cholecystectomy in 2019 who presented to the hospital with complaints of abdominal pain. She reports severe epigastric abdominal pain with associated nausea and no vomiting. No signs or symptoms of GI bleed. The patient does take Excedrin daily. Mild elevation of liver enzymes predominantly in a hepatocellular pattern with normal total bilirubin and no evidence of obstruction with total bilirubin 0.2, alkaline phosphatase 145, AST 78 and ALT 48. Ultrasound of the abdomen did show intra-and extrahepatic biliary dilation. Unknown etiology, biliary dilation likely related to postcholecystectomy state however cannot rule out choledocholithiasis although liver enzymes not elevated in a obstructive pattern, differential also includes gastritis, esophagitis, peptic ulcer disease or other etiology. MRCP ordered an evaluation negative for any obstructive process or choledocholithiasis, however there was some pancreatic dilation noted in addition to the intra-and extrahepatic biliary dilation. Current Visit: Yes Status: Acute Code(s): R10.9 - UNSPECIFIED ABDOMINAL PAIN SNOMED Code(s): 80801364 (2) Transaminitis Current Visit: No Status: Acute Code(s): R74.0 - NONSPEC ELEV OF LEVELS OF TRANSAMNS & LACTIC ACID DEHYDRGNSE SNOMED Code(s): 444949552 Plan: supportive care okay for diet PPI therapy ordered with Protonix Continue to monitor CBC, BMP, LFTs MRCP will be ordered to rule out choledocholithiasis and negative for CBD stone with findings of intra-and extrahepatic biliary dilation with some pancreatic dilation No plans for ERCP at this time Okay for discharge if symptomatically improves, if patient continues to have pain can consider EGD to rule out peptic ulcer disease in for visualization of the ampulla Patient can follow-up after discharge with consideration for referral to tertiary center for EUS for evaluation of a pancreatic ductal dilation thank you for allowing us to participate in the care of the patient we will continue to follow
--- NOTE | 2019-12-09 17:05 | P.DS ---
Providers Date of admission: 12/07/19 15:24 Attending physician: Markus Nicole Consults: 12/07/19 15:24 Consult Physician Urgent Consulting Provider: Evelyn Au Consult Reason/Comments: cp Do you want consulting provider notified?: Yes 12/07/19 19:00 Consult Physician Routine Consulting Provider: Alli Acevedo Consult Reason/Comments: elevated liver enzymes/right sided abdominal pain Do you want consulting provider notified?: Yes Primary care physician: Markus Nicole Hospital Course: Patient was admitted for chest pain rule out acute medicine syndromes patient was cleared by cardiology patient chest pain mostly appear to be nominal rather and chest. Patient was treated for gastritis, patient patient will be discharged on proton pulmonary better and the will follow-up with the gastroneurology as an outpatient. And had mild transaminitis which is improving at this time. Patient had an MRCP which did not show any choledocholithiasis. Patient will undergo EGD as an outpatient and possible endoscopic ultrasound agitation eccentric needed. PHYSICAL EXAMINATION: GENERAL: The patient is alert and oriented x3, not in any acute distress. Well developed, well nourished. HEENT: Pupils are round and equally reacting to light. EOMI. No scleral icterus. No conjunctival pallor. Normocephalic, atraumatic. No pharyngeal erythema. No thyromegaly. CARDIOVASCULAR: S1 and S2 present. No murmurs, rubs, or gallops. PULMONARY: Chest is clear to auscultation, no wheezing or crackles. ABDOMEN: Soft, nontender, nondistended, normoactive bowel sounds. No palpable organomegaly. MUSCULOSKELETAL: No joint swelling or deformity. EXTREMITIES: No cyanosis, clubbing, or pedal edema. NEUROLOGICAL: Gross neurological examination did not reveal any focal deficits. SKIN: No rashes. The rest of the medical problems authorization course please refer to progress note from Dr. Nicole from yesterday Plan - Discharge Summary Discharge Rx Participant: Yes New Discharge Prescriptions: New Pantoprazole Sodium [Protonix] 40 mg PO BID #30 tablet.dr Orellana Gabapentin [Neurontin] 300 mg PO TID HYDROcodone/APAP 5-325MG [[place] 5-325] 1 tab PO Q8H QUEtiapine [SEROquel] 100 mg PO HS DULoxetine HCL [Cymbalta] 90 mg PO HS clonazePAM [KlonoPIN] 1 mg PO BID PRN PRN Reason: Anxiety Discharge Medication List Gabapentin [Neurontin] 300 mg PO TID 01/30/17 [History] HYDROcodone/APAP 5-325MG [[place] 5-325] 1 tab PO Q8H 02/24/19 [History] DULoxetine HCL [Cymbalta] 90 mg PO HS 12/07/19 [History] QUEtiapine [SEROquel] 100 mg PO HS 12/07/19 [History] clonazePAM [KlonoPIN] 1 mg PO BID PRN 12/07/19 [History] Pantoprazole Sodium [Protonix] 40 mg PO BID #30 tablet. 12/09/19 [Rx] Follow up Appointment(s)/Referral(s): Sagar Raza MD [STAFF PHYSICIAN] - 1 Week (out patient stress test) Markus Nicole MD [Primary Care Provider] - 3 Days Alli Acevedo MD [STAFF PHYSICIAN] - 1 Week (outpatient EGD ) Activity/Diet/Wound Care/Special Instructions: continue taking norco for pain. diet as tolerated. Discharge Disposition: HOME SELF-CARE
== END 2019-12-09 15:26 | disposition home or self-care (01) ==
LOC: EC 13:20 → 3NCARDOBS 15:24
PROVIDERS: ADMIT Family Medicine; ATTEND Family Medicine
DX: R07.89 Other chest pain (principal); K29.70 Gastritis, unspecified, without bleeding; K83.8 Other specified diseases of biliary tract; R06.02 Shortness of breath; R42 Dizziness and giddiness; G89.29 Other chronic pain; J44.9 Chronic obstructive pulmonary disease, unspecified; K21.9 Gastro-esophageal reflux disease without esophagitis; M19.90 Unspecified osteoarthritis, unspecified site; F41.9 Anxiety disorder, unspecified; F32.9 Major depressive disorder, single episode, unspecified; F17.200 Nicotine dependence, unspecified, uncomplicated; Z87.828 Personal history of other (healed) physical injury and trauma; Z79.899 Other long term (current) drug therapy; Z79.891 Long term (current) use of opiate analgesic; Z91.048 Other nonmedicinal substance allergy status; Z91.013 Allergy to seafood; Z87.19 Personal history of other diseases of the digestive system; Z87.11 Personal history of peptic ulcer disease; Z90.49 Acquired absence of other specified parts of digestive tract; Z80.1 Family history of malignant neoplasm of trachea, bronchus and lung; R74.01 Elevation of levels of liver transaminase levels; R51.9 Headache, unspecified
CPT/HCPCS: 93005 ×2; 96361; 96374; 96375; 96376 ×3; 99285; 36415; 93306; 85379; 80061; 80053 ×2; 80074; 83735; 84484; 85025; 85610; 85730; 71046; 76705; 74181; G0378 ×3; G0480; C9113 ×2; J1170 ×3; 80320

== ENCOUNTER 2020-05-28 06:04 | Inpatient (IN) | payer MEDICARE, OTHER ==
[2020-05-28] MEDS ORDERED: SODIUM CHLORIDE 0.9% 500 ML 500 ML IV ONE (06:20)
--- NOTE | 2020-05-28 06:26 | ED ---
Abdominal Pain HPI - General Chief Complaint: Abdominal Pain Stated Complaint: Abdominal Pain Time Seen by Provider: 05/28/20 06:10 Source: EMS Mode of arrival: EMS Limitations: no limitations - History of Present Illness Initial Comments: 75-year-old female with history of bowel resection, rectocele,, previous hemorrhoidectomy, anemia presenting to the emergency department for chief complaint of lower abdominal pain. Patient states the past day she has had lower abdominal pain that radiates to her back she states is on both sides including the LLQ. Patient denies urinary symptoms, patient states she has had associated diarrhea with the pain and after numerous episodes yesterday of diarrhea she noted blood. Patient denies dark stools. She states that she had to "push everything back in because it started coming out", "like my doctor showed me" she states that she continued to have abdominal pain and was unable to push back in what sounds like some sort of prolapse and thus presented to the ER. Patient on arrival appears well nontoxic in no acute distress. She is not tachycardic nor hypotensive. No known history of anticoagulation therapy. - Related Data Home Medications Medication Instructions Recorded Confirmed DULoxetine HCL [Cymbalta] 90 mg PO HS 12/07/19 02/19/20 QUEtiapine [SEROquel] 100 mg PO HS 12/07/19 02/19/20 clonazePAM [KlonoPIN] 1 mg PO BID PRN 12/07/19 02/19/20 Aloe Vera 1 tab PO DAILY 02/19/20 02/19/20 HYDROcodone/APAP 7.5-325MG [[place] 1 tab PO Q4H PRN 02/19/20 02/19/20 7.5-325] Previous Rx's Medication Instructions Recorded Pantoprazole Sodium [Protonix] 40 mg PO BID #30 tablet. 12/09/19 Allergies Allergy/AdvReac Type Severity Reaction Status Date / Time iodine Allergy Anaphylaxis Verified 02/19/20 15:21 shellfish derived [Shellfish] Allergy Anaphylaxis Verified 02/19/20 15:21 Review of Systems ROS Statement: Those systems with pertinent positive or pertinent negative responses have been documented in the HPI. ROS Other: All systems not noted in ROS Statement are negative. Past Medical History Past Medical History: COPD, GERD/Reflux, Osteoarthritis (OA) Additional Past Medical History / Comment(s): Chronic back pain, hx hemorrhoids, hx gastric ulcer. Anemic. History of Any Multi-Drug Resistant Organisms: None Reported Past Surgical History: Bowel Resection, Hernia Repair Additional Past Surgical History / Comment(s): Hemorrhoidectomy, gallstones removed, cataracts removed. Past Anesthesia/Blood Transfusion Reactions: No Reported Reaction Past Psychological History: Anxiety, Depression Smoking Status: Current every day smoker Past Alcohol Use History: Occasional Past Drug Use History: None Reported - Past Family History Mother Family Medical History: No Reported History Father Family Medical History: Cancer Additional Family Medical History / Comment(s): Lung cancer at age of 75. Sister(s) Family Medical History: Cancer General Exam - General Exam Comments Initial Comments: General: The patient is awake and alert, in no distress Eye: +3 mm pupils are equal, round and reactive to light, extra-ocular movements are intact. No nystagmus. There is normal conjunctiva bilaterally. No signs of icterus. Ears, nose, mouth and throat: There are moist mucous membranes and no oral lesions. Neck: The neck is supple, there is no tenderness or JVD. Cardiovascular: There is a regular rate and rhythm. No murmur, rub or gallop is appreciated. Respiratory: Lungs are clear to auscultation, respirations are non-labored, breath sounds are equal. No wheezes, stridor, rales, or rhonchi. Gastrointestinal: Soft, non-distended, non-tender abdomen without masses or organomegaly noted. There is no rebound or guarding present. Musculoskeletal: Normal ROM, no tenderness. Strength 5/5. Sensation intact. Radial and DP pulses equal bilaterally 2+. Neurological: A&O x 3. CN II-XII intact grossly, There are no obvious motor or sensory deficits. Coordination appears grossly intact. Speech is normal. Skin: Skin is warm and dry and no rashes or lesions are noted. Psychiatric: Cooperative, appropriate mood & affect, normal judgment. Limitations: no limitations Course Vital Signs 05/28/20 05/28/20 06:06 07:20 Temperature 98.7 F Pulse Rate 69 74 Respiratory 16 18 Rate Blood Pressure 144/86 137/80 O2 Sat by Pulse 100 98 Oximetry Medical Decision Making - Medical Decision Making 75yo female presenting for cc of rectal bleeding, diarrhea, abdominal pain. prolapse reduced with attending Dr. Helmreich bedside. Patient CT colitis extensive, liver lesion, possible ovarian lesion. Patient will be admitted to medicine with surgery/GI on consult as of this time. On exam there is no heavy bleeding. pt is not tachycardia, nor hypotensive. No weakness, palpitations, cold intolerance and her HgB is stable. HgB will trended. Patient case discussed with Dr. Vines who evaluated patient and is agreeable to admission and care plan. - Lab Data Result diagrams: 05/28/20 06:23 05/28/20 06:23 Lab Results 05/28/20 05/28/20 05/28/20 Range/Units 06:23 06:23 06:23 WBC 4.9 (3.8-10.6) k/uL RBC 3.68 L (3.80-5.40) m/uL Hgb 10.7 L (11.4-16.0) gm/dL Hct 34.7 (34.0-46.0) % MCV 94.2 (80.0-100.0) fL MCH 29.2 (25.0-35.0) pg MCHC 31.0 (31.0-37.0) g/dL RDW 15.3 (11.5-15.5) % Plt Count 252 (150-450) k/uL MPV 7.2 Neutrophils % 34 % Lymphocytes % 47 % Monocytes % 10 % Eosinophils % 4 % Basophils % 0 % Neutrophils # 1.7 (1.3-7.7) k/uL Lymphocytes # 2.3 (1.0-4.8) k/uL Monocytes # 0.5 (0-1.0) k/uL Eosinophils # 0.2 (0-0.7) k/uL Basophils # 0.0 (0-0.2) k/uL Hypochromasia Slight Sodium 142 (137-145) mmol/L Potassium 3.6 (3.5-5.1) mmol/L Chloride 113 H (98-107) mmol/L Carbon Dioxide 25 (22-30) mmol/L Anion Gap 4 mmol/L BUN 9 (7-17) mg/dL Creatinine 0.74 (0.52-1.04) mg/dL Est GFR (CKD-EPI)AfAm >90 (>60 ml/min/1.73 sqM) Est GFR (CKD-EPI)NonAf 80 (>60 ml/min/1.73 sqM) Glucose 75 (74-99) mg/dL Plasma Lactic Acid Maxi 1.4 (0.7-2.0) mmol/L Calcium 8.1 L (8.4-10.2) mg/dL Total Bilirubin 0.2 (0.2-1.3) mg/dL AST 27 (14-36) U/L ALT 15 (4-34) U/L Alkaline Phosphatase 93 (38-126) U/L Total Protein 5.3 L (6.3-8.2) g/dL Albumin 2.8 L (3.5-5.0) g/dL Amylase 57 (30-110) U/L Lipase 64 (23-300) U/L Urine Color Urine Appearance (Clear) Urine pH (5.0-8.0) Ur Specific [place] (1.001-1.035) Urine Protein (Negative) Urine Glucose (UA) (Negative) Urine Ketones (Negative) Urine Blood (Negative) Urine Nitrite (Negative) Urine Bilirubin (Negative) Urine Urobilinogen (<2.0) mg/dL Ur Leukocyte Esterase (Negative) Urine RBC (0-5) /hpf Urine WBC (0-5) /hpf Ur Squamous Epith Cells (0-4) /hpf Urine Bacteria (None) /hpf Urine Mucus (None) /hpf Coronavirus (PCR) (Not Detectd) 05/28/20 05/28/20 Range/Units 06:31 08:49 WBC (3.8-10.6) k/uL RBC (3.80-5.40) m/uL Hgb (11.4-16.0) gm/dL Hct (34.0-46.0) % MCV (80.0-100.0) fL MCH (25.0-35.0) pg MCHC (31.0-37.0) g/dL RDW (11.5-15.5) % Plt Count (150-450) k/uL MPV Neutrophils % % Lymphocytes % % Monocytes % % Eosinophils % % Basophils % % Neutrophils # (1.3-7.7) k/uL Lymphocytes # (1.0-4.8) k/uL Monocytes # (0-1.0) k/uL Eosinophils # (0-0.7) k/uL Basophils # (0-0.2) k/uL Hypochromasia Sodium (137-145) mmol/L Potassium (3.5-5.1) mmol/L Chloride (98-107) mmol/L Carbon Dioxide (22-30) mmol/L Anion Gap mmol/L BUN (7-17) mg/dL Creatinine (0.52-1.04) mg/dL Est GFR (CKD-EPI)AfAm (>60 ml/min/1.73 sqM) Est GFR (CKD-EPI)NonAf (>60 ml/min/1.73 sqM) Glucose (74-99) mg/dL Plasma Lactic Acid Maxi (0.7-2.0) mmol/L Calcium (8.4-10.2) mg/dL Total Bilirubin (0.2-1.3) mg/dL AST (14-36) U/L ALT (4-34) U/L Alkaline Phosphatase (38-126) U/L Total Protein (6.3-8.2) g/dL Albumin (3.5-5.0) g/dL Amylase (30-110) U/L Lipase (23-300) U/L Urine Color Light Yellow Urine Appearance Cloudy H (Clear) Urine pH 6.0 (5.0-8.0) Ur Specific [place] 1.009 (1.001-1.035) Urine Protein Negative (Negative) Urine Glucose (UA) Negative (Negative) Urine Ketones Negative (Negative) Urine Blood Negative (Negative) Urine Nitrite Negative (Negative) Urine Bilirubin Negative (Negative) Urine Urobilinogen <2.0 (<2.0) mg/dL Ur Leukocyte Esterase Trace H (Negative) Urine RBC 1 (0-5) /hpf Urine WBC 2 (0-5) /hpf Ur Squamous Epith Cells 1 (0-4) /hpf Urine Bacteria Moderate H (None) /hpf Urine Mucus Rare H (None) /hpf Coronavirus (PCR) Not Detected (Not Detectd) Disposition Clinical Impression: Colitis, Rectal prolapse, GI bleed, Lesion of left ovary, Liver lesion Disposition: ADMITTED IP TO THIS [facility] Condition: Stable Is patient prescribed a controlled substance at d/c from ED?: No Referrals: Markus Nicole MD [Primary Care Provider] - 1-2 days Time of Disposition: 09:02
[2020-05-28] MEDS: SODIUM CHLORIDE 0.9% 1,000 ML IV SCH (06:35)
[2020-05-28] MEDS ORDERED: methylPREDNISolone SOD SUCCI 125 MG/2 ML VIAL IV STA (06:53)
[2020-05-28] MEDS ORDERED: FAMOTIDINE 20 MG/2 ML VIAL IV STA (06:54)
[2020-05-28] MEDS ORDERED: diphenhydrAMINE 50 MG/ML 1 ML VIAL IVP STA (06:54)
[2020-05-28 07:01] LABS: Basophils % (A) 0 %; Eosinophils # (A) 0.2 k/uL (0-0.7); Eosinophils % (A) 4 %; HCT 34.7 % (34.0-46.0); HGB 10.7 gm/dL (11.4-16.0); Hypochromasia Slight; Lymphocytes # (A) 2.3 k/uL (1.0-4.8); Lymphocytes % (A) 47 %; MCH 29.2 pg (25.0-35.0); MCV 94.2 fL (80.0-100.0); Mean Platelet Volume 7.2; Monocytes # (A) 0.5 k/uL (0-1.0); Monocytes % (A) 10 %; Neutrophils # (A) 1.7 k/uL (1.3-7.7); Neutrophils % (A) 34 %; Platelet Count 252 k/uL (150-450); RBC 3.68 m/uL (3.80-5.40); RDW 15.3 % (11.5-15.5); WBC 4.9 k/uL (3.8-10.6)
[2020-05-28] MEDS ORDERED: MORPHINE SULFATE 4 MG/ML SYRINGE IVP STA ×2 (07:15→08:28)
[2020-05-28 07:26] LABS: Appearance,Urine Cloudy (Clear); Bacteria,Urine Moderate /hpf; Bilirubin,Urine Negative (Negative); Blood,Urine Negative (Negative); Color,Urine Light Yellow; Glucose,Urine (UA) Negative (Negative); Ketones,Urine Negative (Negative); Leukocyte Esterase,Urine Trace (Negative); Mucus,Urine Rare /hpf; Nitrite,Urine Negative (Negative); Protein,Urine Negative (Negative); RBC,Urine 1 /hpf (0-5); Specific Gravity,Urine 1.009 (1.001-1.035); Squamous Epithelial Cell,Urine 1 /hpf (0-4); Urobilinogen,Urine <2.0 mg/dL (<2.0); WBC,Urine 2 /hpf (0-5)
[2020-05-28 07:27] LABS: ALT 15 U/L (4-34); AST 27 U/L (14-36); African American GFR (CKD) >90 (>60 ml/min/1.73 sqM); Albumin 2.8 g/dL (3.5-5.0); Alkaline Phosphatase 93 U/L (38-126); Amylase 57 U/L (30-110); Anion Gap 4 mmol/L; Blood Urea Nitrogen 9 mg/dL (7-17); Calcium 8.1 mg/dL (8.4-10.2); Carbon Dioxide 25 mmol/L (22-30); Chloride 113 mmol/L (98-107); Glucose 75 mg/dL (74-99); Lipase 64 U/L (23-300); Non-African American GFR(CKD) 80 (>60 ml/min/1.73 sqM); Potassium 3.6 mmol/L (3.5-5.1); Sodium 142 mmol/L (137-145); Total Bilirubin 0.2 mg/dL (0.2-1.3); Total Protein 5.3 g/dL (6.3-8.2)
--- NOTE | 2020-05-28 08:22 | CT ---
EXAMINATION TYPE: CT abdomen pelvis w con DATE OF EXAM: 05/28/2020 COMPARISON: Correlation MRCP 12/08/2019 HISTORY: 75-year-old female LLQ pain, diarrhea TECHNIQUE: Contiguous axial scanning of the abdomen and pelvis following administration of 100 ml Iso clark 300 IV contrast. Delayed images through the kidneys and coronal/sagittal reconstructions perform ed. CT DLP: 554.9 mGycm Automated exposure control for dose reduction was used. FINDINGS: Heart upper limits of normal in size without pericardial effusion. Strandy atelectasis or scarring at the basilar right lower lobe. No pleural effusion. Surgical clips at the GE junction. Additional surgical change with gastrojejunostomy. The proximal je junum is oversewn. There is some vague focal hypodensity measuring 1.5 cm involving segment 3 of the left liver lobe, axial image 32 of, not as well-demonstrated on the delayed kidney images, probably s ome focal sac but not clearly identified on the 12/08/2019 MRCP. Precautionary 6 month follow-up can b e performed. Redemonstrated pronounced intrahepatic biliary ductal dilatation and the bile duct dilated up to 1.2 cm. Similar dilatation of the main pancreatic duct up to 7 mm. Gallbladder surgically absent. Adrenal glands and spleen within normal limits. A couple subcentimeter cortical cysts within the kidneys. Scattered prominent fluid-filled small bowel loops. A couple loops of borderline distended up to 3.0 cm but without transition point. No free fluid or free air seen. Small fatty umbilical hernia. No mesenteric or retroperitoneal lymphadenopathy identified. Mild diffuse colonic wall thickening. Normal appendix. No significant stool burden. Left-sided coloni c diverticulosis. More pronounced moderate wall thickening of the sigmoid colon There is some nodular soft tissue thickening in the left adnexa measuring 3.3 x 1.9 cm on axial image 61 and 62 probably relates to the left ovary. Some thickening on the contralateral side measures 2.2 cm likely representing the right ovary. There is some perirectal fat pulled down to the level of the anus and some surrounding air, refer to axial image 75 and coronal image 59. Findings suggest significant rectal prolapse. Bladder is urine distended. Uterus appears surgically absent. Bones: Mild degenerative change of the hips. Facet arthropathy lower lumbar spine. IMPRESSION: 1. LEFT-SIDED CLONIC DIVERTICULOSIS BUT WITH PANCOLONIC WALL THICKENING, MORE MODERATE INVOLVING THE SIGMOID COLON. CORRELATE FOR INFECTIOUS OR INFLAMMATORY PANCOLITIS. THE THICKENING DOES NOT APPEAR TO BE ISOLATED TO THE SIGMOID COLON TO CLEARLY INDICATE ACUTE DIVERTICULITIS. DIRECT VISUALIZATION WHEN PATIENT ABLE TO EXCLUDE IBD. 2. RECTAL PROLAPSE EXTRUDING THROUGH THE ANUS. CONSIDER SURGICAL EVALUATION ESPECIALLY IF CLINICALLY SIGNIFICANT. 3. CORRELATE WITH PRIOR WORKUP. THERE IS PERSISTENT INTRAHEPATIC AND EXTRAHEPATIC BILIARY DUCTAL DILA TATION AND DIFFUSE DILATATION OF THE PANCREATIC DUCT SEEN ON THE 12/08/2019 MRCP. AN AMPULLARY LESI ON OR AMPULLARY STENOSIS REMAIN IN THE DIFFERENTIAL. 4. SOME NODULAR SOFT TISSUE THICKENING IN THE LEFT ADNEXA MEASURES 3.3 X 1.9 CM, LIKELY RELATING TO T HE LEFT OVARY. RECOMMEND NONEMERGENT FOLLOW-UP PELVIC ULTRASOUND WHEN PATIENT ABLE TO CONFIRM NORMAL MORPHOLOGY OF THE LEFT OVARY AND TO EXCLUDE THE LESS LIKELY POSSIBILITY OF AN ADNEXAL LESION. 5. AREA OF 1.5 CM HYPODENSITY INVOLVING SEGMENT 3 OF THE LEFT LIVER LOBE MAY REPRESENT SOME FOCAL FAT BUT WAS NOT CLEARLY SEEN ON THE 12/08/2019 MRCP. PRECAUTIONARY 6 MONTH FOLLOW-UP CT RECOMMENDED TO RE ASSESS. 6. PREVIOUS SURGERY WITH GASTROJEJUNOSTOMY. THE FIRST PART OF THE DUODENUM IS OVERSEWN. CLINICALLY CO RRELATE. STATUS POST CHOLECYSTECTOMY AND HYSTERECTOMY.
[2020-05-28] MEDS ORDERED: PIPERACILLIN-TAZOBACTAM 3.375 GM in SODIUM CHLORIDE 0.9% 100 ML IVPB STA (09:01)
[2020-05-28] MEDS ORDERED: NALOXONE 0.4 MG/ML 1 ML VIAL IV PRN (09:02)
[2020-05-28] MEDS ORDERED: PANTOPRAZOLE 40 MG/10 ML VIAL IVP STA (09:03)
[2020-05-28] MEDS: HYDROmorphone 0.5 MG/0.5 ML SYRINGE IVP PRN (11:49)
--- NOTE | 2020-05-28 13:41 | P.GSCN ---
History of Present Illness Consult date: 05/28/20 History of present illness: CHIEF COMPLAINT: Abdominal pain HISTORY OF PRESENT ILLNESS: This is a 75-year-old female with a past medical history of nicotine dependence, peptic ulcer disease, GERD, COPD, anemia, osteoarthritis and chronic back pain. Patient had surgical history of bowel resection, rectocele, hemorrhoidectomy, cholecystectomy and hysterectomy. Patient presents to the emergency room with complaints of lower abdominal pain. She reports that the pain radiates to her back into both sides. She did have diarrhea. She has noted blood in her stools. She complains that a large part of her rectum protrudes out. She has had to push it back in. Patient had computed tomography scan the abdomen and pelvis that had shown evidence of a gallardo colitis and rectal prolapse. There is also persistent intrahepatic and extra palate biliary ductal dilation and diffuse dilation of the pancreatic duct as seen on 12/08/19 MRCP. There is soft nodular soft tissue thickening in the left adnexa. And there is an area of 1.5 cm hypodensity involving segment 3 of the left liver lobe. May represent some focal fat. Patient denies any nausea or vomiting. She denies any fever chills or sweats. Patient has been admitted to the hospital for colitis. Surgical consult was placed for rectal prolapse. Patient seen and examined with Dr. Patel PAST MEDICAL HISTORY: See list. PAST SURGICAL HISTORY: See list. MEDICATIONS: See list. ALLERGIES: See list. SOCIAL HISTORY: No illicit drug use. REVIEW OF SYSTEMS: CONSTITUTIONAL: Denies fever or chills. HEENT: Denies blurred vision, vision changes, or eye pain. Denies hemoptysis CARDIOVASCULAR: Denies chest pain or pressure. RESPIRATORY: No shortness of breath. GASTROINTESTINAL: See HPI for pertinent findings HEMATOLOGIC: Denies bleeding disorders. GENITOURINARY: Denies any blood in urine or increased urinary frequency. SKIN: Denies pruitis. Denies rash. PHYSICAL EXAM: VITAL SIGNS: Reviewed GENERAL: Well-developed in no acute distress. HEENT: No sclera icterus. Extraocular movements grossly intact. Moist buccal mucosa. Head is atraumatic, normocephalic. No nasal drainage. ABDOMEN: Soft. Nondistended. Lower abdominal tenderness with palpation NEUROLOGIC: Alert and oriented. Cranial nerves II through XII grossly intact. LABORATORY DATA: WBC 4.9 Hgb 10.7 platelets 252 sodium 142 potassium 3.6 creatinine 0.74 lactic 1.4 LFTs normal IP 64 IMAGING: Computed tomography scan the abdomen and pelvis that had shown evidence of a gallardo colitis and rectal prolapse. There is also persistent intrahepatic and extra palate biliary ductal dilation and diffuse dilation of the pancreatic duct as seen on 12/08/19 MRCP. There is soft nodular soft tissue thickening in the left adnexa. And there is an area of 1.5 cm hypodensity involving segment 3 of the left liver lobe. May represent some focal fat. ASSESSMENT: 1. Abdominal pain likely secondary to the pancolitis 2. Rectal prolapse 3. Hypodensity of the left liver lobe PLAN: -Continue supportive care -Continue antibiotics for pancolitis -Recommend surgical intervention for rectal prolapse after colitis has improved -Agree with GI evaluation Thank you for this consultation Physician Laboratory Technology Teacher note has been reviewed by physician. Signing provider agrees with the documented findings, assessment, and plan of care. Past Medical History Past Medical History: COPD, GERD/Reflux, Osteoarthritis (OA) Additional Past Medical History / Comment(s): Chronic back pain, hx hemorrhoids, hx gastric ulcer. Anemic. History of Any Multi-Drug Resistant Organisms: None Reported Past Surgical History: Bowel Resection, Hernia Repair Additional Past Surgical History / Comment(s): Hemorrhoidectomy, gallstones removed, cataracts removed. Past Anesthesia/Blood Transfusion Reactions: No Reported Reaction Past Psychological History: Anxiety, Depression Smoking Status: Current every day smoker Past Alcohol Use History: Occasional Past Drug Use History: None Reported - Past Family History Mother Family Medical History: No Reported History Father Family Medical History: Cancer Additional Family Medical History / Comment(s): Lung cancer at age of 75. Sister(s) Family Medical History: Cancer Medications and Allergies Home Medications Medication Instructions Recorded Confirmed Type DULoxetine HCL [Cymbalta] 30 mg PO HS 12/07/19 05/28/20 History QUEtiapine [SEROquel] 100 mg PO HS 12/07/19 05/28/20 History clonazePAM [KlonoPIN] 1 mg PO BID PRN 12/07/19 05/28/20 History HYDROcodone/APAP 7.5-325MG [[place] 1 tab PO Q6H PRN 02/19/20 05/28/20 History 7.5-325] DULoxetine HCL [Cymbalta] 60 mg PO HS 05/28/20 05/28/20 History Gabapentin [Neurontin] 400 mg PO TID 05/28/20 05/28/20 History Allergies Allergy/AdvReac Type Severity Reaction Status Date / Time iodine Allergy Anaphylaxis Verified 02/19/20 15:21 shellfish derived [Shellfish] Allergy Anaphylaxis Verified 02/19/20 15:21 Surgical - Exam Vital Signs Temp Pulse Resp BP Pulse Ox 98.7 F 69 16 144/86 100 05/28/20 06:06 05/28/20 06:06 05/28/20 06:06 05/28/20 06:06 05/28/20 06:06 Results - Labs 05/28/20 06:23 05/28/20 06:23 Abnormal Lab Results - Last 24 Hours (Table) 05/28/20 05/28/20 05/28/20 Range/Units 06:23 06:23 06:31 RBC 3.68 L (3.80-5.40) m/uL Hgb 10.7 L (11.4-16.0) gm/dL Chloride 113 H (98-107) mmol/L Calcium 8.1 L (8.4-10.2) mg/dL Total Protein 5.3 L (6.3-8.2) g/dL Albumin 2.8 L (3.5-5.0) g/dL Urine Appearance Cloudy H (Clear) Ur Leukocyte Esterase Trace H (Negative) Urine Bacteria Moderate H (None) /hpf Urine Mucus Rare H (None) /hpf Diabetes panel 05/28/20 Range/Units 06:23 Sodium 142 (137-145) mmol/L Potassium 3.6 (3.5-5.1) mmol/L Chloride 113 H (98-107) mmol/L Carbon Dioxide 25 (22-30) mmol/L BUN 9 (7-17) mg/dL Creatinine 0.74 (0.52-1.04) mg/dL Glucose 75 (74-99) mg/dL Calcium 8.1 L (8.4-10.2) mg/dL AST 27 (14-36) U/L ALT 15 (4-34) U/L Alkaline Phosphatase 93 (38-126) U/L Total Protein 5.3 L (6.3-8.2) g/dL Albumin 2.8 L (3.5-5.0) g/dL Calcium panel 05/28/20 Range/Units 06:23 Calcium 8.1 L (8.4-10.2) mg/dL Albumin 2.8 L (3.5-5.0) g/dL Pituitary panel 05/28/20 Range/Units 06:23 Sodium 142 (137-145) mmol/L Potassium 3.6 (3.5-5.1) mmol/L Chloride 113 H (98-107) mmol/L Carbon Dioxide 25 (22-30) mmol/L BUN 9 (7-17) mg/dL Creatinine 0.74 (0.52-1.04) mg/dL Glucose 75 (74-99) mg/dL Calcium 8.1 L (8.4-10.2) mg/dL Adrenal panel 05/28/20 Range/Units 06:23 Sodium 142 (137-145) mmol/L Potassium 3.6 (3.5-5.1) mmol/L Chloride 113 H (98-107) mmol/L Carbon Dioxide 25 (22-30) mmol/L BUN 9 (7-17) mg/dL Creatinine 0.74 (0.52-1.04) mg/dL Glucose 75 (74-99) mg/dL Calcium 8.1 L (8.4-10.2) mg/dL Total Bilirubin 0.2 (0.2-1.3) mg/dL AST 27 (14-36) U/L ALT 15 (4-34) U/L Alkaline Phosphatase 93 (38-126) U/L Total Protein 5.3 L (6.3-8.2) g/dL Albumin 2.8 L (3.5-5.0) g/dL
[2020-05-28 14:19] LABS: Basophils % (A) 0 %; Eosinophils % (A) 1 %; HCT 34.9 % (34.0-46.0); HGB 11.4 gm/dL (11.4-16.0); Hypochromasia Slight; Lymphocytes # (A) 0.7 k/uL (1.0-4.8); Lymphocytes % (A) 19 %; MCH 30.7 pg (25.0-35.0); MCHC 32.7 g/dL (31.0-37.0); Mean Platelet Volume 7.1; Monocytes # (A) 0.1 k/uL (0-1.0); Monocytes % (A) 2 %; Neutrophils % (A) 77 %; Platelet Count 271 k/uL (150-450); RBC 3.71 m/uL (3.80-5.40); RDW 15.1 % (11.5-15.5); WBC 3.9 k/uL (3.8-10.6)
[2020-05-28] MEDS ORDERED: diphenhydrAMINE 25 MG CAP PO STA (15:07)
[2020-05-28] MEDS: MORPHINE SULFATE 2 MG/ML SYRINGE IVP PRN ×2 (15:46→22:13)
[2020-05-28] MEDS: PIPERACILLIN-TAZOBACTAM 3.375 GM in SODIUM CHLORIDE 0.9% 100 ML IVPB SCH (15:50)
[2020-05-28] MEDS: DULoxetine HCL 60 MG CAPSULE.DR PO SCH (22:13)
[2020-05-28] MEDS: QUEtiapine 100 MG TAB PO SCH (22:13)
[2020-05-28] MEDS: DULoxetine HCL 30 MG CAPSULE.DR PO SCH (22:13)
[2020-05-28] MEDS: GABAPENTIN 400 MG CAP PO SCH (22:13)
--- NOTE | 2020-05-28 22:25 | CONS ---
CONSULTATION DATE OF DICTATION: 05/28/2020 REASON FOR CONSULTATION: Abdominal pain, diarrhea and rectal bleeding. HISTORY OF PRESENT ILLNESS: The patient is a 75-year-old pleasant white female with history of COPD, GERD, peptic ulcer disease and prior history of rectocele, for which she underwent surgery several years ago. She presented to the emergency room complaining of severe lower abdominal pain associated with diarrhea with rectal bleeding that started yesterday evening. She had about 7 or 8 loose watery bowel movements followed by some blood in the stool. Last night she developed severe rectal prolapse. She tried to reduce it herself manually and was not successful. She started having severe discomfort in the rectal area and came into the emergency room. She did have a CT of the abdomen and pelvis done in the ER that showed evidence of diffuse thickening of the entire colon consistent with pancolitis and rectal prolapse. She did have the prolapse reduced by the ER physician, and the patient is feeling much more comfortable now. She still has some rectal pressure. She did not have any bowel movements since this afternoon. She was given some antibiotics 2 weeks ago for upper respiratory tract infection. Her last colonoscopy was about 5 or 10 years ago. PAST MEDICAL HISTORY: Significant for hypertension, GERD, COPD, osteoarthritis and peptic ulcer disease in the past. PAST SURGICAL HISTORY: Hernia repair, hemorrhoidectomy, cholecystectomy, bilateral cataract surgery and some bowel resection. SOCIAL HISTORY: Chronic smoker. No alcohol use. FAMILY HISTORY: Mother unremarkable. Father had cancer. MEDICATIONS: Medications at home include Cymbalta, Seroquel, Klonopin, Leary, Neurontin. ALLERGIES: IODINE and SHELLFISH. REVIEW OF SYSTEMS: CARDIOPULMONARY: No chest pain or shortness of breath. GENITOURINARY: No dysuria or hematuria. MUSCULOSKELETAL: Unremarkable. SKIN: Unremarkable. ENDOCRINE: Unremarkable. PSYCHIATRIC: Unremarkable. NEUROLOGY: Unremarkable. ENT/VISION: Unremarkable. GI: As mentioned above. CONSTITUTIONAL: No recent weight loss. No fever, chills, night sweats. PHYSICAL EXAMINATION: She appears comfortable. No apparent distress. Vital signs are stable. Blood pressure is 150/94, pulse rate 72, temperature 98. HEENT examination unremarkable. Conjunctivae pink. Sclerae anicteric. Oral cavity no lesions. NECK: No JVD or lymph node enlargement. CHEST: Clear to auscultation. HEART: Regular rate and rhythm. ABDOMEN: Soft. Bowel sounds are positive. No organomegaly. EXTREMITIES: No pedal edema. NEUROLOGIC: Alert and oriented x3. No focal deficits. CT of the abdomen and pelvis done in the emergency room did show diffuse thickening of the colon consistent with acute colitis, left-sided moderate diverticulosis and evidence of rectal prolapse, some nodular soft tissue thickening of the left adnexa, persistent intra- and extrahepatic biliary ductal dilation as well as pancreatic ductal dilation. LABS: Labs done at the time of admission to the hospital: WBC 4.9, hemoglobin 10.7, platelets normal. Basic metabolic panel is within normal limits. BUN and creatinine are normal. ALT and AST are normal. T-bilirubin and alkaline phosphatase are within normal limits. Albumin is 2.8. Coronavirus PCR is negative. IMPRESSION: 1. Severe rectal prolapse that has been reduced in the ER. Patient is feeling better now. Patient has been having intermittent rectal prolapse for the last 3 years' duration. 2. Diarrhea with rectal bleeding of [address] scan showed diffuse colitis involving diffuse thickening of the entire colon consistent with pancolitis. Rule out infectious colitis. Patient was recently on antibiotics for acute upper respiratory tract infection. Rule out C difficile colitis. 3. History of anxiety and depression. 4. History of chronic obstructive pulmonary disease. RECOMMENDATIONS: 1. Continue with empiric antibiotics. 2. Stool cultures and C difficile toxin. 3. Agree with surgical consultation for the rectal prolapse. 4. No plans on any endoscopic intervention at the present time, but I advised the patient to have an outpatient colonoscopy following discharge from the hospital. Will follow with you closely. Thank you for this consultation. MMERICL / IJN: [id number] /
[2020-05-29] MEDS: SODIUM CHLORIDE 0.9% 1,000 ML IV SCH ×3 (00:35→21:21)
[2020-05-29] MEDS: PIPERACILLIN-TAZOBACTAM 3.375 GM in SODIUM CHLORIDE 0.9% 100 ML IVPB SCH ×4 (00:38→23:15)
[2020-05-29] MEDS: MORPHINE SULFATE 2 MG/ML SYRINGE IVP PRN ×4 (05:06→18:12)
[2020-05-29] MEDS: GABAPENTIN 400 MG CAP PO SCH ×3 (08:27→21:14)
--- NOTE | 2020-05-29 08:42 | P.HPIM ---
History of Present Illness H&P Date: 05/28/20 Chief Complaint: Abdominal pain The patient is a 75-year-old black female with known history of opiate dependence secondary to osteoarthritis and back pain who came in with si gnificant abdominal pain. On examination of significant rectocele which is reducible. Computed tomography scan showed significant colitis and she is treated for empiric treatment. Review of Systems Constitutional: Denies chills, Denies fever Eyes: denies blurred vision, denies pain Ears, nose, mouth and throat: Denies headache, Denies sore throat Cardiovascular: Denies chest pain, Denies shortness of breath Respiratory: Denies cough Gastrointestinal: Reports as per HPI Genitourinary: Denies dysuria, Denies hematuria Musculoskeletal: Denies myalgias Past Medical History Past Medical History: COPD, GERD/Reflux, Osteoarthritis (OA) Additional Past Medical History / Comment(s): Chronic back pain, hx hemorrhoids, hx gastric ulcer. Anemic. History of Any Multi-Drug Resistant Organisms: None Reported Past Surgical History: Bowel Resection, Hernia Repair Additional Past Surgical History / Comment(s): Hemorrhoidectomy, gallstones removed, cataracts removed. Past Anesthesia/Blood Transfusion Reactions: No Reported Reaction Past Psychological History: Anxiety, Depression Smoking Status: Current every day smoker Past Alcohol Use History: Occasional Past Drug Use History: None Reported - Past Family History Mother Family Medical History: No Reported History Father Family Medical History: Cancer Additional Family Medical History / Comment(s): Lung cancer at age of 75. Sister(s) Family Medical History: Cancer Medications and Allergies Home Medications Medication Instructions Recorded Confirmed Type DULoxetine HCL [Cymbalta] 30 mg PO HS 12/07/19 05/28/20 History QUEtiapine [SEROquel] 100 mg PO HS 12/07/19 05/28/20 History clonazePAM [KlonoPIN] 1 mg PO BID PRN 12/07/19 05/28/20 History HYDROcodone/APAP 7.5-325MG [[place] 1 tab PO Q6H PRN 02/19/20 05/28/20 History 7.5-325] DULoxetine HCL [Cymbalta] 60 mg PO HS 05/28/20 05/28/20 History Gabapentin [Neurontin] 400 mg PO TID 05/28/20 05/28/20 History Allergies Allergy/AdvReac Type Severity Reaction Status Date / Time iodine Allergy Anaphylaxis Verified 02/19/20 15:21 shellfish derived [Shellfish] Allergy Anaphylaxis Verified 02/19/20 15:21 Physical Exam Vitals: Vital Signs Temp Pulse Resp BP Pulse Ox 05/28/20 11:50 69 16 148/84 97 05/28/20 10:46 72 18 140/80 96 05/28/20 07:20 74 18 137/80 98 05/28/20 06:06 98.7 F 69 16 144/86 100 Intake and Output 05/27/20 05/28/20 05/28/20 22:59 06:59 14:59 Other: Weight 44.452 kg - Constitutional General appearance: thin - EENT Eyes: no abnormal pupil - Neck Neck: no lymphadenopathy - Respiratory Respiratory: bilateral: CTA - Cardiovascular Rhythm: regular Heart sounds: normal: S1, S2 Abnormal Heart Sounds: no S3 Gallop - Gastrointestinal General gastrointestinal: soft, tenderness - Musculoskeletal Musculoskeletal: generalized weakness - Psychiatric Psychiatric: A&O x's 3 Results CBC & Chem 7: 05/28/20 06:23 05/28/20 06:23 Labs: Abnormal Lab Results - Last 24 Hours (Table) 05/28/20 05/28/20 05/28/20 Range/Units 06:23 06:23 06:31 RBC 3.68 L (3.80-5.40) m/uL Hgb 10.7 L (11.4-16.0) gm/dL Chloride 113 H (98-107) mmol/L Calcium 8.1 L (8.4-10.2) mg/dL Total Protein 5.3 L (6.3-8.2) g/dL Albumin 2.8 L (3.5-5.0) g/dL Urine Appearance Cloudy H (Clear) Ur Leukocyte Esterase Trace H (Negative) Urine Bacteria Moderate H (None) /hpf Urine Mucus Rare H (None) /hpf Assessment and Plan (1) Colitis Current Visit: Yes Status: Acute Code(s): K52.9 - NONINFECTIVE GASTROENTERITIS AND COLITIS, UNSPECIFIED SNOMED Code(s): 42108549 (2) GI bleed Current Visit: Yes Status: Acute Code(s): K92.2 - GASTROINTESTINAL HEMORRHAGE, UNSPECIFIED SNOMED Code(s): 39201658 (3) Rectal prolapse Current Visit: Yes Status: Acute Code(s): K62.3 - RECTAL PROLAPSE SNOMED Code(s): 54695297 Plan: We'll go ahead and institute empiric treatment for the colitis. Consult general surgery for rectocele repair. New patch check CBC and CMP in the
[2020-05-29] MEDS: clonazePAM 1 MG TAB PO PRN (08:43)
--- NOTE | 2020-05-29 08:44 | P.PN ---
Subjective Principal diagnosis: Rectal prolapse with colitis This is a continue progress and 75 her old black female essentially admitted for rectocele with colitis. She's complaining of abdominal pain but seems very calm today. Objective - Vital Signs Vital signs: Vital Signs Temp 98.3 F 05/29/20 05:00 Pulse 84 05/29/20 05:00 Resp 20 05/29/20 05:00 BP 129/62 05/29/20 05:00 Pulse Ox 94 L 05/29/20 05:00 Intake & Output 05/28/20 05/29/20 05/29/20 18:59 06:59 18:59 Intake Total 200 Balance 200 Weight 44.452 kg Intake: Oral 200 Other: # Voids 3 - Constitutional General appearance: Present: thin - EENT Eyes: Absent: abnormal pupil - Neck Neck: Absent: lymphadenopathy - Respiratory Respiratory: bilateral: CTA - Cardiovascular Rhythm: regular Heart sounds: normal: S1, S2 Abnormal Heart Sounds: Absent: S3 Gallop - Gastrointestinal General gastrointestinal: Present: soft. Absent: tenderness - Integumentary Integumentary: Absent: cellulitis - Labs CBC & Chem 7: 05/28/20 14:08 05/28/20 06:23 Labs: Abnormal Lab Results - Last 24 Hours (Table) 05/28/20 Range/Units 14:08 RBC 3.71 L (3.80-5.40) m/uL Lymphocytes # 0.7 L (1.0-4.8) k/uL Assessment and Plan (1) Colitis Current Visit: Yes Status: Acute Code(s): K52.9 - NONINFECTIVE GASTROENTERITIS AND COLITIS, UNSPECIFIED SNOMED Code(s): 61121320 (2) GI bleed Current Visit: Yes Status: Acute Code(s): K92.2 - GASTROINTESTINAL HEMORRHAGE, UNSPECIFIED SNOMED Code(s): 16752897 (3) Rectal prolapse Current Visit: Yes Status: Acute Code(s): K62.3 - RECTAL PROLAPSE SNOMED Code(s): 28302175 Plan: We'll go ahead and institute empiric treatment for the colitis. Consult general surgery for rectocele repair. Continue for pain control.
[2020-05-29 09:05] LABS: HCT 32.8 % (37.2-46.3); HGB 10.6 g/dL (12.0-15.0); MCHC 32.3 g/dL (32.0-37.0); MCV 92.9 fL (80.0-97.0); Mean Platelet Volume 9.9 fL (9.5-12.2); Platelet Count 272 X 10*3/uL (140-440); RBC 3.53 X 10*6/uL (4.10-5.20); RDW 15.7 % (11.5-14.5); WBC 5.64 X 10*3/uL (4.50-10.00)
[2020-05-29 10:00] LABS: Albumin 3.2 g/dL (3.80-4.90); Albumin/Globulin Ratio 1.78 (1.60-3.17); Anion Gap 3.8 mmol/L (4.00-12.00); BUN/Creat Ratio 5.56 Ratio (12.00-20.00); Calcium 8.6 mg/dL (8.7-10.3); Carbon Dioxide 31.2 mmol/L (21.6-31.8); Globulin 1.8 g/dL (1.6-3.3); Non-African American GFR(CKD) 62.1 (60.0-200.0); Potassium 3.5 mmol/L (3.5-5.5); Total Bilirubin 0.4 mg/dL (0.3-1.2)
[2020-05-29] MEDS: HYDROmorphone 0.5 MG/0.5 ML SYRINGE IVP PRN ×3 (10:15→21:15)
--- NOTE | 2020-05-29 12:19 | P.PN ---
Subjective Progress Note Date: 05/29/20 CHIEF COMPLAINT: Abdominal pain HISTORY OF PRESENT ILLNESS: Patient is being followed for her rectal prolapse. Patient reports that prolapse remains reduced. She has had no further episodes of diarrhea. She is still complaining of lower abdominal pain that radiates into the back. She is hospitalized also for pancolitis and followed by GI service. She's had no further rectal bleeding. Afebrile. WBC 3.9 hemoglobin 11.4 PHYSICAL EXAM: VITAL SIGNS: Reviewed. GENERAL: Well-developed in no acute distress. HEENT: No sclera icterus. Extraocular movements grossly intact. Moist buccal mucosa. Head is atraumatic, normocephalic. ABDOMEN: Soft. Nondistended. Diffuse abdominal tenderness to palpation NEUROLOGIC: Alert and oriented. Cranial nerves II through XII grossly intact. ASSESSMENT: 1. Abdominal pain likely secondary to the pancolitis 2. Rectal prolapse PLAN: -Continue supportive care -Continue antibiotics for pancolitis -Recommend surgical intervention for rectal prolapse after colitis has improved Physician Supervisor [employer] note has been reviewed by physician. Signing provider agrees with the documented findings, assessment, and plan of care. Objective - Vital Signs Vital signs: Vital Signs Temp 98.3 F 05/29/20 05:00 Pulse 84 05/29/20 05:00 Resp 20 05/29/20 05:00 BP 129/62 05/29/20 05:00 Pulse Ox 94 L 05/29/20 05:00 Intake & Output 05/28/20 05/29/20 05/29/20 18:59 06:59 18:59 Intake Total 200 Balance 200 Weight 44.452 kg Intake: Oral 200 Other: Voiding Method Bedside Commode # Voids 3 - Labs CBC & Chem 7: 05/29/20 06:07 05/29/20 06:07 Labs: Abnormal Lab Results - Last 24 Hours (Table) 05/28/20 05/29/20 05/29/20 Range/Units 14:08 06:07 06:07 RBC 3.71 L 3.53 L (3.80-5.40) m/uL Hgb 10.6 L (12.0-15.0) g/dL Hct 32.8 L (37.2-46.3) % RDW 15.7 H (11.5-14.5) % Lymphocytes # 0.7 L (1.0-4.8) k/uL Anion Gap 3.80 L (4.00-12.00) mmol/L BUN 5.0 L (9.0-27.0) mg/dL BUN/Creatinine Ratio 5.56 L (12.00-20.00) Ratio Calcium 8.6 L (8.7-10.3) mg/dL AST 54 H (13-35) U/L Alkaline Phosphatase 130 H (41-126) U/L Total Protein 5.0 L (6.2-8.2) g/dL Albumin 3.20 L (3.80-4.90) g/dL
--- NOTE | 2020-05-29 13:43 | P.PN ---
Subjective Progress Note Date: 05/29/20 Principal diagnosis: colitis This is a pleasant 75-year-old female with a history of peptic ulcer disease and prior history of rectocele for which she underwent surgery several years ago. She presented to the emergency room complaining of severe lower abdominal pain associated with diarrhea and rectal bleeding that started 2 days ago. She states she was having about 7-8 loose bowel movements a day. It was noted to have prolapsed rectum while in the emergency room. She had a CT of the abdomen and pelvis that showed evidence of diffuse thickening of the entire colon consistent with pancolitis and rectal prolapse. She had the prolapsed: Reduced by the emergency room physician. She was started on Zosyn. Today she is seen and evaluated sitting up in her bed. She states that abdominal pain has improved some, continues to have some pain that radiates to her right flank. States she still has pressure in the rectum. Denies any further bowel movements or rectal bleeding since she's been hospitalized. Stool studies have been ordered however have been on collected. Objective - Vital Signs Vital signs: Vital Signs Temp 98.3 F 05/29/20 05:00 Pulse 84 05/29/20 05:00 Resp 20 05/29/20 05:00 BP 129/62 05/29/20 05:00 Pulse Ox 94 L 05/29/20 05:00 Intake & Output 05/28/20 05/29/20 05/29/20 18:59 06:59 18:59 Intake Total 200 Balance 200 Weight 44.452 kg Intake: Oral 200 Other: # Voids 3 - Exam General appearance: The patient is alert, oriented, appears in no acute distress. HET: Head is normocephalic and atraumatic. Conjunctiva pink. Sclera anicteric. Neck: Supple without lymphadenopathy. Abdomen: Soft, mid and left lower abdominal tenderness, nondistended with bowel sounds. No guarding or rigidity. Extremities: Normal skin color and turgor. No pedal edema Skin: No rashes, no jaundice Neurological: No focal deficits. Alert and oriented 3. - Labs CBC & Chem 7: 05/29/20 06:07 05/29/20 06:07 Labs: Abnormal Lab Results - Last 24 Hours (Table) 05/28/20 Range/Units 14:08 RBC 3.71 L (3.80-5.40) m/uL Lymphocytes # 0.7 L (1.0-4.8) k/uL Assessment and Plan (1) Diarrhea Narrative/Plan: Diarrhea with rectal bleeding for 24 hours duration. Computed tomography scan showed diffuse colitis involving diffuse thickening of the entire colon consistent with pancolitis. Rule out infectious colitis. Patient was recently on antibiotics for acute upper respiratory tract infection. Rule out C. diffic ile colitis. Symptoms are improving, patient has had no further diarrhea or rectal bleeding. Stool cultures and C. diff ordered. Current Visit: Yes Status: Acute Code(s): R19.7 - DIARRHEA, UNSPECIFIED SNOMED Code(s): 64014509 (2) Rectal prolapse Narrative/Plan: Patient had severe rectal prolapse that had been reduced in the emergency room. Patient is feeling better at this time. Surgical services is on consult. Current Visit: Yes Status: Acute Code(s): K62.3 - RECTAL PROLAPSE SNOMED Code(s): 71475845 Plan: 1. Continue symptomatic and supportive care 2. Advance to full liquid diet 3. Continue empiric Antibiotics 4. Surgery is on consult for rectal prolapse 5. No plans on any endoscopic intervention at the present time, however discussed with the patient to have outpatient colonoscopy following discharge from the hospital within the next 4-6 weeks Thank you for this consultation, we will continue to follow Dr. Chance Anderson I agree with the dictator's note, documented as a scribe by Meghan Brewer.
[2020-05-29] MEDS: QUEtiapine 100 MG TAB PO SCH (21:14)
[2020-05-29] MEDS: DULoxetine HCL 30 MG CAPSULE.DR PO SCH (21:14)
[2020-05-29] MEDS: DULoxetine HCL 60 MG CAPSULE.DR PO SCH (21:14)
[2020-05-30] MEDS: MORPHINE SULFATE 2 MG/ML SYRINGE IVP PRN ×2 (04:31→11:11)
[2020-05-30] MEDS: PIPERACILLIN-TAZOBACTAM 3.375 GM in SODIUM CHLORIDE 0.9% 100 ML IVPB SCH ×3 (07:46→23:54)
[2020-05-30] MEDS: HYDROmorphone 0.5 MG/0.5 ML SYRINGE IVP PRN (07:56)
[2020-05-30] MEDS: SODIUM CHLORIDE 0.9% 1,000 ML IV SCH (07:56)
[2020-05-30] MEDS: GABAPENTIN 400 MG CAP PO SCH ×3 (09:06→21:08)
[2020-05-30] MEDS ORDERED: HYDROcodone/APAP 7.5-325MG 1 EACH TAB PO PRN (12:52)
--- NOTE | 2020-05-30 14:27 | P.PN ---
Subjective Progress Note Date: 05/30/20 CHIEF COMPLAINT: Abdominal pain HISTORY OF PRESENT ILLNESS: Patient is being followed for her rectal prolapse. Patient reports that prolapse remains reduced. She has had no further episodes of diarrhea. She did have a normal formed stool. She is still complaining of lower abdominal pain that radiates into the back but it is showing improvement. She is hospitalized also for pancolitis and followed by GI service. She's had no further rectal bleeding. Afebrile. WBC 3.9 hemoglobin 11.4 PHYSICAL EXAM: VITAL SIGNS: Reviewed. GENERAL: Well-developed in no acute distress. HEENT: No sclera icterus. Extraocular movements grossly intact. Moist buccal mucosa. Head is atraumatic, normocephalic. ABDOMEN: Soft. Nondistended. Decrease in abdominal tenderness with palpation NEUROLOGIC: Alert and oriented. Cranial nerves II through XII grossly intact. ASSESSMENT: 1. Abdominal pain likely secondary to the pancolitis 2. Rectal prolapse PLAN: -Advance diet to regular -Continue supportive care -Continue antibiotics for pancolitis -Recommend surgical intervention for rectal prolapse outpatient after colitis has improved Physician Rodding Machine Tender note has been reviewed by physician. Signing provider agrees with the documented findings, assessment, and plan of care. Objective - Vital Signs Vital signs: Vital Signs Temp 98.1 F 05/30/20 12:33 Pulse 64 05/30/20 12:33 Resp 12 05/30/20 12:33 BP 133/71 05/30/20 12:33 Pulse Ox 96 05/30/20 12:33 Intake & Output 05/29/20 05/30/20 05/30/20 18:59 06:59 18:59 Intake Total 900 800 Output Total 600 Balance 900 200 Intake: Intake, IV Titration 100 700 Amount Piperacillin-Tazobactam 3 100 100 .375 gm In Sodium Chloride 0.9% 100 ml @ 25 mls/hr IVPB Q8HR PAT Rx# :[id number] Sodium Chloride 0.9% 1, 600 000 ml @ 75 mls/hr IV . [id number] PAT Rx#:[id number] Oral 800 100 Output: Urine 600 Other: Voiding Method Bedside Commode Bedside Commode Bedside Commode # Voids 2 1 1 # Bowel Movements 1 - Labs CBC & Chem 7: 05/29/20 06:07 05/29/20 06:07
[2020-05-30] MEDS: clonazePAM 1 MG TAB PO PRN ×2 (15:09→20:46)
--- NOTE | 2020-05-30 16:00 | PN ---
PROGRESS NOTE DATE OF DICTATION: May 30, 2020 Patient is a 75-year-old pleasant white female admitted to the hospital with abdominal pain and bloody diarrhea of one day duration. She was started on empiric antibiotics for possible infectious colitis. She also had severe significant rectal prolapse that was reduced manually in the ER. She states that she had one episode of diarrhea today and as she was having a bowel movement, she felt the urge and was worried that the rectum will prolapse again and hence stopped the bowel movements. Since then she is feeling a pressure-like sensation in that area. She remains on broad-spectrum antibiotics currently. PHYSICAL EXAMINATION: She appears comfortable, no apparent distress. Vital signs are stable. Blood pressure is 133/82, pulse rate 64, temperature 98.1. HEENT EXAMINATION: Unremarkable. Conjunctivae pink. Sclerae anicteric. Oral cavity no lesions. NECK: No JVD or lymph node enlargement. CHEST: Was clear to auscultation. HEART: Regular rate and rhythm. ABDOMEN: Soft. There was mild tenderness in the left lower quadrant area. Rest of the abdomen was benign. Bowel sounds are positive. No organomegaly. EXTREMITIES: No pedal edema. NEURO: She is alert and oriented x3. No focal deficits. LABS: WBC 5.6, hemoglobin 10.6, platelets 272. BUN and creatinine at 5 and 0.9 respectively. Rest of the labs are within normal limits. IMPRESSION: 1. Acute infectious colitis. The patient presented with acute bloody diarrhea of one day duration. Presently on broad-spectrum antibiotics and her symptoms are gradually improving. Diarrhea, still has mild diarrhea today. 2. Large rectal prolapse. Surgery following the patient closely. 3. History of anxiety and depression. RECOMMENDATION: 1. Advance diet as tolerated. 2. Continue empiric antibiotics. 3. Monitor labs closely. 4. We will follow with you closely. Thank you for this consultation. MMODL / IJN: [id number] /
[2020-05-30] MEDS: HYDROcodone/APAP 7.5-325MG 1 EACH TAB PO PRN ×2 (19:05→23:55)
[2020-05-30] MEDS: QUEtiapine 100 MG TAB PO SCH (20:45)
[2020-05-30] MEDS: DULoxetine HCL 30 MG CAPSULE.DR PO SCH (20:45)
[2020-05-30] MEDS: DULoxetine HCL 60 MG CAPSULE.DR PO SCH (20:46)
[2020-05-31] MEDS: SODIUM CHLORIDE 0.9% 1,000 ML IV SCH ×2 (01:02→14:01)
[2020-05-31] MEDS: HYDROcodone/APAP 7.5-325MG 1 EACH TAB PO PRN ×5 (06:08→22:09)
--- NOTE | 2020-05-31 08:55 | P.PN ---
Subjective Principal diagnosis: Rectal prolapse with colitis This is a continue progress and 75 her old black female essentially admitted for rectocele with colitis. She's complaining of abdominal pain but seems very calm today. She seems to be better with pain but once more stronger dosing. Objective - Vital Signs Vital signs: Vital Signs Temp 98.4 F 05/31/20 07:30 Pulse 64 05/31/20 07:30 Resp 14 05/31/20 07:30 BP 144/75 05/31/20 07:30 Pulse Ox 96 05/31/20 07:30 Intake & Output 05/30/20 05/31/20 05/31/20 18:59 06:59 18:59 Intake Total 900 1300 Balance 900 1300 Intake: Intake, IV Titration 900 900 Amount Piperacillin-Tazobactam 3 100 .375 gm In Sodium Chloride 0.9% 100 ml @ 25 mls/hr IVPB Q8HR PAT Rx# :[id number] Sodium Chloride 0.9% 1, 900 800 000 ml @ 75 mls/hr IV . [id number] PAT Rx#:[id number] Oral 400 Other: Voiding Method Bedside Commode Bedside Commode # Voids 2 3 # Bowel Movements 1 1 - Constitutional General appearance: Present: average body habitus, thin - EENT Eyes: Absent: abnormal pupil - Neck Neck: Present: lymphadenopathy - Respiratory Respiratory: bilateral: diminished - Cardiovascular Rhythm: regular Heart sounds: normal: S1, S2 Abnormal Heart Sounds: Absent: S3 Gallop - Gastrointestinal General gastrointestinal: Present: soft, tenderness - Labs CBC & Chem 7: 05/29/20 06:07 05/29/20 06:07 Labs: Microbiology - Last 24 Hours (Table) 05/30/20 19:05 Stool Culture - Preliminary Stool Assessment and Plan (1) Colitis Current Visit: Yes Status: Acute Code(s): K52.9 - NONINFECTIVE GASTROENTERITIS AND COLITIS, UNSPECIFIED SNOMED Code(s): 83427736 (2) GI bleed Current Visit: Yes Status: Acute Code(s): K92.2 - GASTROINTESTINAL HEMORRHAGE, UNSPECIFIED SNOMED Code(s): 15117688 (3) Rectal prolapse Current Visit: Yes Status: Acute Code(s): K62.3 - RECTAL PROLAPSE SNOMED Code(s): 41925635 Plan: We'll go ahead and institute empiric treatment for the colitis. Consult general surgery for rectocele repair. Continue for pain control. Dr. Ludwig's group Route covering for the weekend. New pack check CBC and CMP in a.m.
[2020-05-31] MEDS: PIPERACILLIN-TAZOBACTAM 3.375 GM in SODIUM CHLORIDE 0.9% 100 ML IVPB SCH ×3 (09:34→23:17)
[2020-05-31] MEDS: GABAPENTIN 400 MG CAP PO SCH ×3 (09:34→22:09)
--- NOTE | 2020-05-31 16:05 | P.PN ---
Progress Note - Text Progress Note Date: 05/31/20 Patient's resting comfortably bed. She has minimal complaints of pain. On exam her vital signs are stable. Abdomen soft there is minimal tenderness. Resolving colitis. Patient will have her rectal prolapse down with as an outpatient after she is discharged.
--- NOTE | 2020-05-31 16:20 | PN ---
PROGRESS NOTE DATE OF DICTATION: 05/31/2020 The patient is a 75-year-old pleasant white female admitted to the hospital with acute bloody diarrhea of one day's duration, and CT scan showed pancolitis, on empiric antibiotics. Her symptoms are gradually improving. She did have 2 loose bowel movements today. She also had severe rectal prolapse that has been reduced in the ER, and since then she has been doing fine. She, however, complains of some rectal pressure and rectal discomfort. No bleeding noted. PHYSICAL EXAMINATION: She appears comfortable. VITAL SIGNS: Stable. Blood pressure is 162/80, pulse rate 65, temperature 98.5. HEENT examination unremarkable. Conjunctivae pink. Sclerae anicteric. Oral cavity no lesions. NECK: No JVD or lymph node enlargement. CHEST: Clear to auscultation. HEART: Regular rate and rhythm. ABDOMEN: Soft. There was mild diffuse tenderness throughout the abdomen. EXTREMITIES: No pedal edema. SKIN: No rashes. NEUROLOGIC: Alert and oriented x3. No focal deficits. LABS: No new labs available from today. IMPRESSION: 1. Acute onset of bloody diarrhea of one day's duration, possibly infectious colitis, on empiric antibiotics, and her symptoms are gradually improving. 2. Severe rectal prolapse that was reduced manually in the ER. Patient has no recurrence since then. RECOMMENDATIONS: 1. Continue with antibiotics. 2. Advance diet as tolerated. 3. Increase ambulation. 4. If the patient is doing well, she can be discharged home tomorrow with an outpatient followup. Thank you for this consultation. MMPHUONG / AMYN: [id number] /
[2020-05-31] MEDS: DULoxetine HCL 30 MG CAPSULE.DR PO SCH (20:15)
[2020-05-31] MEDS: QUEtiapine 100 MG TAB PO SCH (20:15)
[2020-05-31] MEDS: DULoxetine HCL 60 MG CAPSULE.DR PO SCH (20:15)
[2020-05-31] MEDS: clonazePAM 1 MG TAB PO PRN (20:15)
[2020-05-31 21:08] VITALS: RESP 16
[2020-06-01] MEDS: HYDROcodone/APAP 7.5-325MG 1 EACH TAB PO PRN ×3 (05:31→15:36)
[2020-06-01] MEDS: SODIUM CHLORIDE 0.9% 1,000 ML IV SCH (05:31)
[2020-06-01] MEDS: PIPERACILLIN-TAZOBACTAM 3.375 GM in SODIUM CHLORIDE 0.9% 100 ML IVPB SCH (08:42)
[2020-06-01] MEDS: GABAPENTIN 400 MG CAP PO SCH (08:42)
[2020-06-01 08:54] LABS: HCT 31.8 % (37.2-46.3); MCHC 31.4 g/dL (32.0-37.0); MCV 92.2 fL (80.0-97.0); Platelet Count 246 X 10*3/uL (140-440); RBC 3.45 X 10*6/uL (4.10-5.20); RDW 15.9 % (11.5-14.5); WBC 4.67 X 10*3/uL (4.50-10.00)
[2020-06-01 09:35] LABS: Albumin/Globulin Ratio 1.76 (1.60-3.17); Anion Gap 4.2 mmol/L (4.00-12.00); Calcium 8.7 mg/dL (8.7-10.3); Carbon Dioxide 32.8 mmol/L (21.6-31.8); Globulin 1.7 g/dL (1.6-3.3); Non-African American GFR(CKD) 71.6 (60.0-200.0); Potassium 3.9 mmol/L (3.5-5.5); Total Bilirubin 0.3 mg/dL (0.2-1.2); Total Protein 4.7 g/dL (6.2-8.2)
[2020-06-01 12:05] VITALS: BP 126/68; PULSE 64; TEMP 98.8
--- NOTE | 2020-06-01 12:49 | PN ---
PROGRESS NOTE DATE OF SERVICE: 06/01/2020 INTERVAL HISTORY: Patient is a 75-year-old white female admitted to the hospital with acute bloody diarrhea of one day duration on antibiotics for possible infectious colitis. The patient also had a severe rectal prolapse that was manually reduced in the ER. She has been in the hospital for the last 3 days. Diet has been advanced. She is overall doing well. Occasionally still has some rectal pressure, rectal discomfort and intermittent diarrhea. She only had one bowel movement earlier this morning that was somewhat loose in consistency. PHYSICAL EXAMINATION: GENERAL: Appears comfortable. VITAL SIGNS: Stable. Blood pressure 138/78, pulse rate 65, temperature 98.2. HEENT: Examination unremarkable. Conjunctivae are pink. Sclerae anicteric. Oral cavity no lesions. NECK: No JVD or lymph node enlargement. CHEST: Clear to auscultation. HEART: Regular rate and rhythm. ABDOMEN: Soft. There was very minimal tenderness in the suprapubic area. The rest of the abdomen was benign. Bowel sounds are positive, no organomegaly. EXTREMITIES: No pedal edema. NEURO: She is alert and oriented x3. No focal deficits. LABS: WBC 4.6, hemoglobin 10, platelets 246. Labs are within normal limits. AST is elevated at 102, ALT is 72, alkaline phosphatase is 172. IMPRESSION: 1. Acute infectious colitis. On broad-spectrum antibiotics and the bleeding and diarrhea is resolving. She has intermittent diarrhea currently. 2. Rectal prolapse has been manually reduced in the ER and she had no recurrent. Surgery following the patient closely. 3. Mild elevation of serum transaminases and on review of records, her LFTs have been fluctuating over the last several months. Probably could be medication induced hepatitis, likely from the antibiotics. RECOMMENDATION: 1. Continue with current management plan. 2. Increase ambulation. 3. Advance diet as tolerated. 4. She can be discharged home today from a GI standpoint with outpatient followup in 2- 3 weeks. Thank you for this consultation. MMODL / IJN: [id number] /
[2020-06-01] MEDS: clonazePAM 1 MG TAB PO PRN (14:06)
--- NOTE | 2020-06-01 14:15 | P.PN ---
Progress Note - Text Progress Note Date: 06/01/20 Patient feels better today. She had diarrhea. On exam vessels are stable. Abdomen soft. History of rectal prolapse. We will plan for outpatient repair of this.
--- NOTE | 2020-06-01 15:08 | P.DS ---
Providers Date of admission: 05/28/20 09:24 Expected date of discharge: 06/01/20 Attending physician: Markus Nicole Consults: 05/28/20 09:03 Consult Physician Routine Consulting Provider: Mili Anderson Consult Reason/Comments: colitis, GI bleed Do you want consulting provider notified?: Yes 05/28/20 09:25 Consult Physician Routine Consulting Provider: Jose Juan Patel Consult Reason/Comments: rectal prolapse Do you want consulting provider notified?: Yes, Notify in am Primary care physician: Markus Nicole [facility] Course: 75-year-old female with a past medical history of nicotine dependence, peptic ulcer disease, GERD, COPD, anemia, osteoarthritis and chronic back pain. Patient had surgical history of bowel resection, rectocele, hemorrhoidectomy, cholecystectomy and hysterectomy. Patient presents to the emergency room with complaints of lower abdominal pain. She reports that the pain radiates to her back into both sides. She did have diarrhea. She has noted blood in her stools. She complains that a large part of her rectum protrudes out. She has had to push it back in. Patient had computed tomography scan the abdomen and pelvis that had shown evidence of a gallardo colitis and rectal prolapse. There is also persistent intrahepatic and extra palate biliary ductal dilation and diffuse dilation of the pancreatic duct as seen on 12/08/19 MRCP. There is soft nodular soft tissue thickening in the left adnexa. And there is an area of 1.5 cm hypodensity involving segment 3 of the left liver lobe. May represent some focal fat. Patient denies any nausea or vomiting. She denies any fever chills or sweats. Patient has been admitted to the hospital for colitis. Surgical consult was placed for rectal prolapse. 1. Abdominal pain likely secondary to the pancolitis 2. Rectal prolapse 3. Hypodensity of the left liver lobe -Continue supportive care -Continue antibiotics for pancolitis in form of IV Zosyn -Recommend surgical intervention for rectal prolapse after colitis has improved -Agree with GI evaluation; GI recommended to continue with IV antibiotics and patient was slowly started on oral diet which he tolerated well; patient has been evaluated by GI again and has been recommended discharge with oral antibiotics with recommendations to follow-up with GI in 2 weeks Patient Condition at Discharge: Stable Plan - Discharge Summary Discharge Rx Participant: Yes New Discharge Prescriptions: New Ciprofloxacin HCl [Cipro] 500 mg PO Q12H 1 Days #14 tab Continue QUEtiapine [SEROquel] 100 mg PO HS DULoxetine HCL [Cymbalta] 30 mg PO HS clonazePAM [KlonoPIN] 1 mg PO BID PRN PRN Reason: Anxiety HYDROcodone/APAP 7.5-325MG [[place] 7.5-325] 1 tab PO Q6H PRN PRN Reason: Pain DULoxetine HCL [Cymbalta] 60 mg PO HS Gabapentin [Neurontin] 400 mg PO TID Discharge Medication List DULoxetine HCL [Cymbalta] 30 mg PO HS 12/07/19 [History] QUEtiapine [SEROquel] 100 mg PO HS 12/07/19 [History] clonazePAM [KlonoPIN] 1 mg PO BID PRN 12/07/19 [History] HYDROcodone/APAP 7.5-325MG [[place] 7.5-325] 1 tab PO Q6H PRN 02/19/20 [History] DULoxetine HCL [Cymbalta] 60 mg PO HS 05/28/20 [History] Gabapentin [Neurontin] 400 mg PO TID 05/28/20 [History] Ciprofloxacin HCl [Cipro] 500 mg PO Q12H 1 Days #14 tab 06/01/20 [Rx] Follow up Appointment(s)/Referral(s): Markus Nicole MD [Primary Care Provider] - 1-2 days Jose Juan Patel MD [STAFF PHYSICIAN] - 1 Week Discharge Disposition: HOME SELF-CARE
== END 2020-06-01 17:00 | disposition home or self-care (01) | DRG 387 ==
LOC: EC 06:04 → 5NMEDONC 09:24
PROVIDERS: ADMIT Family Medicine; ATTEND Family Medicine
DX: K51.00 Ulcerative (chronic) pancolitis without complications (principal); K62.3 Rectal prolapse; F17.210 Nicotine dependence, cigarettes, uncomplicated; F32.9 Major depressive disorder, single episode, unspecified; F41.9 Anxiety disorder, unspecified; I10 Essential (primary) hypertension; J44.9 Chronic obstructive pulmonary disease, unspecified; K76.89 Other specified diseases of liver; N83.9 Noninflammatory disorder of ovary, fallopian tube and broad ligament, unspecified; Z79.899 Other long term (current) drug therapy; Z80.1 Family history of malignant neoplasm of trachea, bronchus and lung; Z87.11 Personal history of peptic ulcer disease; Z90.49 Acquired absence of other specified parts of digestive tract; Z90.710 Acquired absence of both cervix and uterus; Z20.822 Contact with and (suspected) exposure to COVID-19; M54.9 Dorsalgia, unspecified; G89.29 Other chronic pain; M19.90 Unspecified osteoarthritis, unspecified site; Z88.8 Allergy status to other drugs, medicaments and biological substances; Z91.013 Allergy to seafood; Z98.42 Cataract extraction status, left eye; Z98.41 Cataract extraction status, right eye; D64.9 Anemia, unspecified
CPT/HCPCS: 36415; 74177; 80053; 81001; 82150; 83605; 83690; 85025; 85027; 87045; 87046; 87324; 87635; 96361; 96374; 96375; 96376; 99285

== ENCOUNTER 2020-11-22 17:34 | Emergency (ER) | payer MEDICARE, OTHER ==
[2020-11-22 18:12] VITALS: TEMP 98.3
[2020-11-22] MEDS ORDERED: SODIUM CHLORIDE 0.9% 500 ML 500 ML IV STA (20:34)
[2020-11-22] MEDS ORDERED: MORPHINE SULFATE 2 MG/ML SYRINGE IVP STA (20:34)
--- NOTE | 2020-11-22 20:43 | ED ---
General Adult HPI - General Chief complaint: Headache Stated complaint: Headache/Back Pain Time Seen by Provider: 11/22/20 20:00 Source: patient, RN notes reviewed, old records reviewed Mode of arrival: ambulatory Limitations: no limitations - History of Present Illness Initial comments: 75-year-old black female, presents to the emergency room with multiple complaints. She states that she has mid back pain that she's had for several years its worse lately than laying flat in bed. She states she also has a cough with productive sputum she seen her primary for and just finished a Z-Rambo last week. She also has abdominal pain with some diarrhea. That's been ongoing for a couple weeks. She denies any fevers or chest pain. She also complains of intermittent headaches. She is a smoker and does have a history of anxiety she states she smokes when she feels anxious. She does take Ketchum for her chronic back pain. -: year(s) (2) Location: back Severity scale (1-10): 10 Quality: aching Consistency: constant Improves with: none Worsens with: other (Lying flat in bed) Associated Symptoms: cough, headaches, nausea/vomiting, other (Diarrhea and abdominal pain) - Related Data Home Medications Medication Instructions Recorded Confirmed DULoxetine HCL [Cymbalta] 30 mg PO HS 12/07/19 05/28/20 QUEtiapine [SEROquel] 100 mg PO HS 12/07/19 05/28/20 clonazePAM [KlonoPIN] 1 mg PO BID PRN 12/07/19 05/28/20 HYDROcodone/APAP 7.5-325MG [[place] 1 tab PO Q6H PRN 02/19/20 05/28/20 7.5-325] DULoxetine HCL [Cymbalta] 60 mg PO HS 05/28/20 05/28/20 Gabapentin [Neurontin] 400 mg PO TID 05/28/20 05/28/20 Previous Rx's Medication Instructions Recorded Ciprofloxacin HCl [Cipro] 500 mg PO Q12H 1 Days #14 tab 06/01/20 Allergies Allergy/AdvReac Type Severity Reaction Status Date / Time iodine Allergy Anaphylaxis Verified 11/22/20 18:12 shellfish derived [Shellfish] Allergy Anaphylaxis Verified 11/22/20 18:12 Review of Systems ROS Statement: Those systems with pertinent positive or pertinent negative responses have been documented in the HPI. ROS Other: All systems not noted in ROS Statement are negative. Past Medical History Past Medical History: COPD, GERD/Reflux, Osteoarthritis (OA) Additional Past Medical History / Comment(s): Chronic back pain, hx hemorrhoids, hx gastric ulcer. Anemic. History of Any Multi-Drug Resistant Organisms: None Reported Past Surgical History: Bowel Resection, Hernia Repair Additional Past Surgical History / Comment(s): Hemorrhoidectomy, gallstones removed, cataracts removed. Past Anesthesia/Blood Transfusion Reactions: No Reported Reaction Past Psychological History: Anxiety, Depression Smoking Status: Current every day smoker Past Alcohol Use History: Occasional Past Drug Use History: None Reported - Past Family History Mother Family Medical History: No Reported History Father Family Medical History: Cancer Additional Family Medical History / Comment(s): Lung cancer at age of 75. Sister(s) Family Medical History: Cancer General Exam Limitations: no limitations General appearance: alert, in no apparent distress Head exam: Present: atraumatic, normocephalic, normal inspection Eye exam: Present: normal appearance, PERRL, EOMI. Absent: scleral icterus, conjunctival injection, periorbital swelling ENT exam: Present: normal exam, normal oropharynx, mucous membranes moist Neck exam: Present: normal inspection, full ROM. Absent: tenderness, meningismus, lymphadenopathy, thyromegaly Respiratory exam: Present: wheezes, rales. Absent: normal lung sounds bilaterally, respiratory distress, rhonchi, stridor, chest wall tenderness, accessory muscle use Cardiovascular Exam: Present: regular rate, normal rhythm, normal heart sounds. Absent: systolic murmur, diastolic murmur, rubs, gallop, clicks GI/Abdominal exam: Present: soft, distended, normal bowel sounds Extremities exam: Present: normal inspection, full ROM, normal capillary refill. Absent: tenderness, pedal edema, joint swelling, calf tenderness Back exam: Present: normal inspection, full ROM, tenderness (Mid thoracic spine). Absent: CVA tenderness (R), CVA tenderness (L), paraspinal tenderness Neurological exam: Present: alert, oriented X3 Psychiatric exam: Present: normal affect, normal mood Skin exam: Present: warm, dry, intact, normal color. Absent: rash, cyanosis, diaphoretic, erythema, petechiae, pallor, mottled Course Vital Signs 11/22/20 11/22/20 18:09 23:22 Temperature 98.3 F Pulse Rate 62 67 Respiratory 20 18 Rate Blood Pressure 111/66 107/72 O2 Sat by Pulse 96 98 Oximetry Medical Decision Making - Medical Decision Making CT the abdomen without contrast shows chronic dilation of the biliary tree was changed to old exam dated 05/28/20. There is chronic dilation of the pancreatic duct also unchanged there is no obstruction or mass. There is no evidence of leukocytosis. Urinalysis was clear. Infection. Troponin is negative at 0.012. There is some elevation in her alk phosphatase which appears to be chronic. Her pain was relieved with morphine and she is agreeable to being discharged home. Patient will be discharged home to follow up with her primary care doctor Dr. Nicole. Return to the emergency room with a new or worsening symptoms. - Lab Data Result diagrams: 11/22/20 21:07 11/22/20 21:07 Lab Results 11/22/20 11/22/20 11/22/20 Range/Units 21:07 21:07 21:07 WBC 3.8 (3.8-10.6) k/uL RBC 4.18 (3.80-5.40) m/uL Hgb 11.8 (11.4-16.0) gm/dL Hct 38.9 (34.0-46.0) % MCV 93.2 (80.0-100.0) fL MCH 28.2 (25.0-35.0) pg MCHC 30.3 L (31.0-37.0) g/dL RDW 16.3 H (11.5-15.5) % Plt Count 236 (150-450) k/uL MPV 7.6 Neutrophils % Not Reportable Neutrophils % (Manual) 30 % Lymphocytes % Not Reportable Lymphocytes % (Manual) 61 % Monocytes % Not Reportable Monocytes % (Manual) 7 % Eosinophils % Not Reportable Eosinophils % (Manual) 2 % Basophils % Not Reportable Neutrophils # Not Reportable Neutrophils # (Manual) 1.14 L (1.3-7.7) k/uL Lymphocytes # Not Reportable Lymphocytes # (Manual) 2.32 (1.0-4.8) k/uL Monocytes # Not Reportable Monocytes # (Manual) 0.27 (0-1.0) k/uL Eosinophils # Not Reportable Eosinophils # (Manual) 0.08 (0-0.7) k/uL Basophils # Not Reportable Nucleated RBCs 0 (0-0) /100 WBC Manual Slide Review Performed Hypochromasia Slight Anisocytosis Slight PT (9.0-12.0) sec INR (<1.2) APTT (22.0-30.0) sec Sodium 140 (137-145) mmol/L Potassium 5.0 (3.5-5.1) mmol/L Chloride 108 H (98-107) mmol/L Carbon Dioxide 28 (22-30) mmol/L Anion Gap 4 mmol/L BUN 9 (7-17) mg/dL Creatinine 0.75 (0.52-1.04) mg/dL Est GFR (CKD-EPI)AfAm 90 (>60 ml/min/1.73 sqM) Est GFR (CKD-EPI)NonAf 78 (>60 ml/min/1.73 sqM) Glucose 71 L (74-99) mg/dL Plasma Lactic Acid Maxi (0.7-2.0) mmol/L Calcium 8.9 (8.4-10.2) mg/dL Total Bilirubin 0.3 (0.2-1.3) mg/dL AST 44 H (14-36) U/L ALT 38 H (4-34) U/L Alkaline Phosphatase 212 H (38-126) U/L Troponin I (0.000-0.034) ng/mL Total Protein 6.5 (6.3-8.2) g/dL Albumin 3.5 (3.5-5.0) g/dL Amylase 100 (30-110) U/L Lipase 304 H (23-300) U/L Urine Color Colorless Urine Appearance Clear (Clear) Urine pH 5.5 (5.0-8.0) Ur Specific Seanor 1.004 (1.001-1.035) Urine Protein Negative (Negative) Urine Glucose (UA) Negative (Negative) Urine Ketones Negative (Negative) Urine Blood Negative (Negative) Urine Nitrite Negative (Negative) Urine Bilirubin Negative (Negative) Urine Urobilinogen <2.0 (<2.0) mg/dL Ur Leukocyte Esterase Negative (Negative) 11/22/20 11/22/20 11/22/20 Range/Units 21:07 21:07 21:07 WBC (3.8-10.6) k/uL RBC (3.80-5.40) m/uL Hgb (11.4-16.0) gm/dL Hct (34.0-46.0) % MCV (80.0-100.0) fL MCH (25.0-35.0) pg MCHC (31.0-37.0) g/dL RDW (11.5-15.5) % Plt Count (150-450) k/uL MPV Neutrophils % Neutrophils % (Manual) % Lymphocytes % Lymphocytes % (Manual) % Monocytes % Monocytes % (Manual) % Eosinophils % Eosinophils % (Manual) % Basophils % Neutrophils # Neutrophils # (Manual) (1.3-7.7) k/uL Lymphocytes # Lymphocytes # (Manual) (1.0-4.8) k/uL Monocytes # Monocytes # (Manual) (0-1.0) k/uL Eosinophils # Eosinophils # (Manual) (0-0.7) k/uL Basophils # Nucleated RBCs (0-0) /100 WBC Manual Slide Review Hypochromasia Anisocytosis PT 9.7 (9.0-12.0) sec INR 0.9 (<1.2) APTT 30.7 H (22.0-30.0) sec Sodium (137-145) mmol/L Potassium (3.5-5.1) mmol/L Chloride (98-107) mmol/L Carbon Dioxide (22-30) mmol/L Anion Gap mmol/L BUN (7-17) mg/dL Creatinine (0.52-1.04) mg/dL Est GFR (CKD-EPI)AfAm (>60 ml/min/1.73 sqM) Est GFR (CKD-EPI)NonAf (>60 ml/min/1.73 sqM) Glucose (74-99) mg/dL Plasma Lactic Acid Maxi 0.9 (0.7-2.0) mmol/L Calcium (8.4-10.2) mg/dL Total Bilirubin (0.2-1.3) mg/dL AST (14-36) U/L ALT (4-34) U/L Alkaline Phosphatase (38-126) U/L Troponin I <0.012 (0.000-0.034) ng/mL Total Protein (6.3-8.2) g/dL Albumin (3.5-5.0) g/dL Amylase (30-110) U/L Lipase (23-300) U/L Urine Color Urine Appearance (Clear) Urine pH (5.0-8.0) Ur Specific Seanor (1.001-1.035) Urine Protein (Negative) Urine Glucose (UA) (Negative) Urine Ketones (Negative) Urine Blood (Negative) Urine Nitrite (Negative) Urine Bilirubin (Negative) Urine Urobilinogen (<2.0) mg/dL Ur Leukocyte Esterase (Negative) Disposition Clinical Impression: Headache, Back pain, Abdominal pain Disposition: HOME SELF-CARE Condition: Good Instructions (If sedation given, give patient instructions): Acute Headache (ED), Abdominal Pain (ED), Back Pain (ED) Additional Instructions: Follow-up with your primary care doctor next week. Continue your medications as previously prescribed. Return to the emergency room with any new or worsening symptoms Is patient prescribed a controlled substance at d/c from ED?: No Referrals: Markus Nicole MD [Primary Care Provider] - 1-2 days Time of Disposition: 00:22
[2020-11-22 21:24] LABS: Anisocytosis Slight; HCT 38.9 % (34.0-46.0); HGB 11.8 gm/dL (11.4-16.0); Hypochromasia Slight; MCH 28.2 pg (25.0-35.0); MCHC 30.3 g/dL (31.0-37.0); MCV 93.2 fL (80.0-100.0); Mean Platelet Volume 7.6; Platelet Count 236 k/uL (150-450); RBC 4.18 m/uL (3.80-5.40); RDW 16.3 % (11.5-15.5); WBC 3.8 k/uL (3.8-10.6)
[2020-11-22 21:28] LABS: Appearance,Urine Clear (Clear); Bilirubin,Urine Negative (Negative); Blood,Urine Negative (Negative); Color,Urine Colorless; Glucose,Urine (UA) Negative (Negative); Ketones,Urine Negative (Negative); Leukocyte Esterase,Urine Negative (Negative); Nitrite,Urine Negative (Negative); PH, Urine 5.5 (5.0-8.0); Protein,Urine Negative (Negative); Specific Gravity,Urine 1.004 (1.001-1.035); Urobilinogen,Urine <2.0 mg/dL (<2.0)
[2020-11-22 21:34] LABS: Albumin 3.5 g/dL (3.5-5.0); Calcium 8.9 mg/dL (8.4-10.2); Total Bilirubin 0.3 mg/dL (0.2-1.3); Total Protein 6.5 g/dL (6.3-8.2)
[2020-11-22 22:00] LABS: INR 0.9 (<1.2); Partial Thromboplastin Time 30.7 sec (22.0-30.0); Prothrombin Time 9.7 sec (9.0-12.0)
[2020-11-22 22:34] LABS: Eosinophils # (M) 0.08 k/uL (0-0.7); Lymphocytes # (M) 2.32 k/uL (1.0-4.8); Monocytes # (M) 0.27 k/uL (0-1.0); Neutrophils # (M) 1.14 k/uL (1.3-7.7); Neutrophils % (M) 30 %; Nucleated Red Blood Cells 0 /100 WBC (0-0); Total Cells Counted 100
--- NOTE | 2020-11-22 23:00 | CT ---
EXAMINATION TYPE: CT abdomen pelvis wo con DATE OF EXAM: 11/22/2020 COMPARISON: 05/28/2020 HISTORY: BACK AND ABD PAIN CT DLP: 253.4 mGycm Automated exposure control for dose reduction was used. Images obtained from the diaphragm to the floor the pelvis with no contrast. There is some mild atelectasis and scarring at the right lung base. Heart size is normal. There is no pericardial effusion. There is dilation of the biliary tree. Common bile duct measures 16 mm. Spleen is intact. There is no evidence of pancreatic mass. There are clips from cholecystectomy. Pancreatic duct is mildly dilated . I see no evidence of a mass at the pancreatic head. There is no adrenal mass. Kidneys have normal size. There is no hydronephrosis. There is no retroperi toneal adenopathy. Bladder distends smoothly. There is no inguinal hernia. There is no free fluid in the pelvis. There is no mesenteric edema. There is no ascites or free air. I see no evidence of a bowel obstructi on. There is previous gastric surgery. There is rectal prolapse. The lumbar vertebra have normal alignment. There is no compression fracture. Posterior elements are i ntact. The bony pelvis is intact. IMPRESSION: There is chronic dilation of the biliary tree that is not changed compared to old exam. There is chronic care nurse qing dilation of the pancreatic duct also unchanged. No obstructing mass seen. There is clearing of th e apparent wall thickening of the distal large bowel compared to old exam. Rectal prolapse not signif icantly different.
[2020-11-22 23:22] VITALS: BP 107/72; PULSE 67; RESP 18
[2020-11-22] MEDS ORDERED: MORPHINE SULFATE 2 MG/ML SYRINGE IVP ONE (23:42)
== END 2020-11-23 01:09 | disposition home or self-care (01) ==
LOC: EC 17:34
DX: R51.9 Headache, unspecified (principal); R10.9 Unspecified abdominal pain; M54.9 Dorsalgia, unspecified; G89.29 Other chronic pain; J44.9 Chronic obstructive pulmonary disease, unspecified; K21.9 Gastro-esophageal reflux disease without esophagitis; M19.90 Unspecified osteoarthritis, unspecified site; F41.9 Anxiety disorder, unspecified; F32.9 Major depressive disorder, single episode, unspecified; F17.200 Nicotine dependence, unspecified, uncomplicated; Z87.11 Personal history of peptic ulcer disease; Z87.19 Personal history of other diseases of the digestive system
CPT/HCPCS: 99284; 96374; 96376; 36415; 93005; 80053; 82150; 83605; 83690; 84484; 85025; 85610; 85730; 81003; 74176; J2270 ×2

== ENCOUNTER 2021-02-23 10:59 | Inpatient (IN) | payer MEDICARE, OTHER ==
[2021-02-23] MEDS ORDERED: ONDANSETRON 4 MG/2 ML VIAL IVP STA (11:44)
[2021-02-23] MEDS ORDERED: HYDROmorphone 0.5 MG/0.5 ML SYRINGE IVP STA (11:44)
[2021-02-23] MEDS ORDERED: SODIUM CHLORIDE 0.9% 500 ML 500 ML IV STA (11:44)
[2021-02-23] MEDS ORDERED: FAMOTIDINE 20 MG/2 ML VIAL IV STA (11:45)
[2021-02-23] MEDS ORDERED: methylPREDNISolone SOD SUCCI 125 MG/2 ML VIAL IV STA (11:45)
[2021-02-23] MEDS ORDERED: diphenhydrAMINE 50 MG/ML 1 ML VIAL IVP STA (11:45)
[2021-02-23] MEDS ORDERED: MORPHINE SULFATE 2 MG/ML SYRINGE IVP STA (11:46)
[2021-02-23 12:25] LABS: Basophils % (A) 1 %; Eosinophils # (A) 0.1 k/uL (0-0.7); Eosinophils % (A) 3 %; HCT 38.2 % (34.0-46.0); HGB 11.8 gm/dL (11.4-16.0); Hypochromasia Slight; Lymphocytes % (A) 41 %; MCH 29.7 pg (25.0-35.0); Mean Platelet Volume 7.7; Monocytes # (A) 0.5 k/uL (0-1.0); Monocytes % (A) 10 %; Neutrophils % (A) 41 %; Platelet Count 320 k/uL (150-450); RBC 3.98 m/uL (3.80-5.40); RDW 15.7 % (11.5-15.5); WBC 4.8 k/uL (3.8-10.6)
--- NOTE | 2021-02-23 12:30 | ED ---
Abdominal Pain HPI - General Chief Complaint: Abdominal Pain Stated Complaint: Sciatic pain Time Seen by Provider: 02/23/21 11:11 Source: patient, family Mode of arrival: ambulatory Limitations: no limitations - History of Present Illness Initial Comments: 75 year-old female patient presents for evaluation of right upper quadrant abdominal pain. States pain radiates to her back, worsens with deep breathing. Reports mild nausea without vomiting. Denies fevers or chills. States she has has "gallstone removed" in the past. States symptoms started two days ago and has been worsening. She denies hematuria, dysuria, urinary frequency, or urgency. Patient denies any recent rash, cough, shortness of breath, chest pain, diarrhea, constipation, back pain, numbness, tingling, dizziness, weakness, headache, visual changes, or any other complaints. - Related Data Home Medications Medication Instructions Recorded Confirmed DULoxetine HCL [Cymbalta] 30 mg PO HS 12/07/19 05/28/20 QUEtiapine [SEROquel] 100 mg PO HS 12/07/19 05/28/20 clonazePAM [KlonoPIN] 1 mg PO BID PRN 12/07/19 05/28/20 HYDROcodone/APAP 7.5-325MG [[place] 1 tab PO Q6H PRN 02/19/20 05/28/20 7.5-325] DULoxetine HCL [Cymbalta] 60 mg PO HS 05/28/20 05/28/20 Gabapentin [Neurontin] 400 mg PO TID 05/28/20 05/28/20 Previous Rx's Medication Instructions Recorded Ciprofloxacin HCl [Cipro] 500 mg PO Q12H 1 Days #14 tab 06/01/20 Allergies Allergy/AdvReac Type Severity Reaction Status Date / Time iodine Allergy Anaphylaxis Verified 02/23/21 11:07 shellfish derived [Shellfish] Allergy Anaphylaxis Verified 02/23/21 11:07 Review of Systems ROS Statement: Those systems with pertinent positive or pertinent negative responses have been documented in the HPI. ROS Other: All systems not noted in ROS Statement are negative. Past Medical History Past Medical History: COPD, GERD/Reflux, Osteoarthritis (OA) Additional Past Medical History / Comment(s): Chronic back pain, hx hemorrhoids, hx gastric ulcer. Anemic. History of Any Multi-Drug Resistant Organisms: None Reported Past Surgical History: Bowel Resection, Hernia Repair Additional Past Surgical History / Comment(s): Hemorrhoidectomy, gallstones removed, cataracts removed. Past Anesthesia/Blood Transfusion Reactions: No Reported Reaction Past Psychological History: Anxiety, Depression Smoking Status: Current every day smoker Past Alcohol Use History: Occasional Past Drug Use History: None Reported - Past Family History Mother Family Medical History: No Reported History Father Family Medical History: Cancer Additional Family Medical History / Comment(s): Lung cancer at age of 75. Sister(s) Family Medical History: Cancer General Exam Limitations: no limitations General appearance: alert, in no apparent distress, other (This is a well- developed, well-nourished elderly female patient in no acute distress. ) ENT exam: Present: normal exam, normal oropharynx, mucous membranes moist Respiratory exam: Present: normal lung sounds bilaterally. Absent: respiratory distress, wheezes, rales, rhonchi, stridor Cardiovascular Exam: Present: regular rate, normal rhythm, normal heart sounds. Absent: systolic murmur, diastolic murmur, rubs, gallop, clicks GI/Abdominal exam: Present: soft, tenderness (Right upper quadrant, right lower quadrant), normal bowel sounds. Absent: distended, guarding, rebound, rigid Back exam: Present: normal inspection. Absent: CVA tenderness (R), CVA tenderness (L) Neurological exam: Present: alert, oriented X3, CN II-XII intact Psychiatric exam: Present: normal affect, normal mood Skin exam: Present: warm, dry, intact, normal color. Absent: rash Course Vital Signs 02/23/21 11:00 Temperature 98.2 F Pulse Rate 81 Respiratory 18 Rate Blood Pressure 156/68 O2 Sat by Pulse 99 Oximetry Medical Decision Making - Medical Decision Making 75 year-old female patient presents to the emergency department today for evaluation of right upper quadrant abdominal pain. Physical exam shows right upper quadrant tenderness. Labs reviewed and did reveal normal white blood cell count. Mild elevated liver enzyme. Elevated alk phos. Urine has positive nitrite but no elevated white or red cells. We'll send for culture. CT abdomen and pelvis was obtained and showed new lesions on the pancreatic head. There is dilated pancreatic duct. Biliary tree appears stable. He'll be admitted to the hospital will have ultrasound of the right upper quadrant. She'll be nothing by mouth at midnight. We'll consult Gen. surgery. Case discussed with my attending Dr. Arellano. - Lab Data Result diagrams: 02/23/21 11:56 02/23/21 11:56 Lab Results 02/23/21 02/23/21 02/23/21 Range/Units 11:44 11:56 11:56 WBC 4.8 (3.8-10.6) k/uL RBC 3.98 (3.80-5.40) m/uL Hgb 11.8 (11.4-16.0) gm/dL Hct 38.2 (34.0-46.0) % MCV 96.0 (80.0-100.0) fL MCH 29.7 (25.0-35.0) pg MCHC 31.0 (31.0-37.0) g/dL RDW 15.7 H (11.5-15.5) % Plt Count 320 (150-450) k/uL MPV 7.7 Neutrophils % 41 % Lymphocytes % 41 % Monocytes % 10 % Eosinophils % 3 % Basophils % 1 % Neutrophils # 2.0 (1.3-7.7) k/uL Lymphocytes # 2.0 (1.0-4.8) k/uL Monocytes # 0.5 (0-1.0) k/uL Eosinophils # 0.1 (0-0.7) k/uL Basophils # 0.0 (0-0.2) k/uL Hypochromasia Slight Sodium 135 L (137-145) mmol/L Potassium 4.9 (3.5-5.1) mmol/L Chloride 101 (98-107) mmol/L Carbon Dioxide 27 (22-30) mmol/L Anion Gap 7 mmol/L BUN 10 (7-17) mg/dL Creatinine 0.75 (0.52-1.04) mg/dL Est GFR (CKD-EPI)AfAm 90 (>60 ml/min/1.73 sqM) Est GFR (CKD-EPI)NonAf 78 (>60 ml/min/1.73 sqM) Glucose 88 (74-99) mg/dL Plasma Lactic Acid Maxi (0.7-2.0) mmol/L Calcium 9.5 (8.4-10.2) mg/dL Total Bilirubin 0.5 (0.2-1.3) mg/dL AST 54 H (14-36) U/L ALT 36 H (4-34) U/L Alkaline Phosphatase 154 H (38-126) U/L Troponin I (0.000-0.034) ng/mL Total Protein 7.2 (6.3-8.2) g/dL Albumin 4.0 (3.5-5.0) g/dL Lipase 104 (23-300) U/L Urine Color Light Yellow Urine Appearance Clear (Clear) Urine pH 6.0 (5.0-8.0) Ur Specific [place] 1.006 (1.001-1.035) Urine Protein Negative (Negative) Urine Glucose (UA) Negative (Negative) Urine Ketones Negative (Negative) Urine Blood Negative (Negative) Urine Nitrite Positive H (Negative) Urine Bilirubin Negative (Negative) Urine Urobilinogen <2.0 (<2.0) mg/dL Ur Leukocyte Esterase Trace H (Negative) Urine RBC <1 (0-5) /hpf Urine WBC 4 (0-5) /hpf Ur Squamous Epith Cells <1 (0-4) /hpf Urine Bacteria Rare H (None) /hpf 02/23/21 02/23/21 Range/Units 11:56 11:56 WBC (3.8-10.6) k/uL RBC (3.80-5.40) m/uL Hgb (11.4-16.0) gm/dL Hct (34.0-46.0) % MCV (80.0-100.0) fL MCH (25.0-35.0) pg MCHC (31.0-37.0) g/dL RDW (11.5-15.5) % Plt Count (150-450) k/uL MPV Neutrophils % % Lymphocytes % % Monocytes % % Eosinophils % % Basophils % % Neutrophils # (1.3-7.7) k/uL Lymphocytes # (1.0-4.8) k/uL Monocytes # (0-1.0) k/uL Eosinophils # (0-0.7) k/uL Basophils # (0-0.2) k/uL Hypochromasia Sodium (137-145) mmol/L Potassium (3.5-5.1) mmol/L Chloride (98-107) mmol/L Carbon Dioxide (22-30) mmol/L Anion Gap mmol/L BUN (7-17) mg/dL Creatinine (0.52-1.04) mg/dL Est GFR (CKD-EPI)AfAm (>60 ml/min/1.73 sqM) Est GFR (CKD-EPI)NonAf (>60 ml/min/1.73 sqM) Glucose (74-99) mg/dL Plasma Lactic Acid Maxi 0.9 (0.7-2.0) mmol/L Calcium (8.4-10.2) mg/dL Total Bilirubin (0.2-1.3) mg/dL AST (14-36) U/L ALT (4-34) U/L Alkaline Phosphatase (38-126) U/L Troponin I 0.027 (0.000-0.034) ng/mL Total Protein (6.3-8.2) g/dL Albumin (3.5-5.0) g/dL Lipase (23-300) U/L Urine Color Urine Appearance (Clear) Urine pH (5.0-8.0) Ur Specific [place] (1.001-1.035) Urine Protein (Negative) Urine Glucose (UA) (Negative) Urine Ketones (Negative) Urine Blood (Negative) Urine Nitrite (Negative) Urine Bilirubin (Negative) Urine Urobilinogen (<2.0) mg/dL Ur Leukocyte Esterase (Negative) Urine RBC (0-5) /hpf Urine WBC (0-5) /hpf Ur Squamous Epith Cells (0-4) /hpf Urine Bacteria (None) /hpf - EKG Data -: EKG Interpreted by Tn EKG Comments: EKG obtained at 1219 shows normal sinus rhythm with a ventricular rate of 71, ME interval 116, QRS duration 74, QT 402, QTc 436. No evidence of ST elevation or depression. - Radiology Data Radiology results: report reviewed, image reviewed CT abdomen and pelvis with contrast was obtained. Report was reviewed in its entirety. Impression by Dr. Cano shows limited evaluation due to lack of abdominal fat and oral contrast. Stable dilatation of the intra-and extrahepatic biliary tree. Increase dilatation of the main pancreatic duct with 2 hypoattenuating lesions of the pancreatic head. Few small bowel loops demonstrating bowel wall thickening which could be reflective of underdistention and/or infection or inflammation. Disposition Clinical Impression: Abdominal pain, Pancreatic lesion Disposition: ADMITTED IP TO THIS [facility] Condition: Serious Decision to Admit Reason: Admit from EC Decision Date: 02/23/21 Decision Time: 15:03
[2021-02-23 12:36] LABS: Calcium 9.5 mg/dL (8.4-10.2); Potassium 4.9 mmol/L (3.5-5.1); Total Bilirubin 0.5 mg/dL (0.2-1.3); Total Protein 7.2 g/dL (6.3-8.2)
[2021-02-23 12:52] LABS: Appearance,Urine Clear (Clear); Bacteria,Urine Rare /hpf; Bilirubin,Urine Negative (Negative); Blood,Urine Negative (Negative); Color,Urine Light Yellow; Glucose,Urine (UA) Negative (Negative); Ketones,Urine Negative (Negative); Leukocyte Esterase,Urine Trace (Negative); Nitrite,Urine Positive (Negative); Protein,Urine Negative (Negative); RBC,Urine <1 /hpf (0-5); Specific Gravity,Urine 1.006 (1.001-1.035); Squamous Epithelial Cell,Urine <1 /hpf (0-4); Urobilinogen,Urine <2.0 mg/dL (<2.0); WBC,Urine 4 /hpf (0-5)
--- NOTE | 2021-02-23 14:02 | CT ---
EXAMINATION TYPE: CT abdomen pelvis w con DATE OF EXAM: 02/23/2021 HISTORY: RUQ pain CT DLP: 364.1mGycm Automated Exposure Control for Dose Reduction was Utilized. CONTRAST: CT scan of the abdomen and pelvis is performed with IV Contrast, patient injected with 89 mL of Isovu e 300. COMPARISON: 11/22/2020 FINDINGS: LUNG BASES: Mild atelectasis in the left upper lobe versus left lower lobe infiltrate. INCLUDED CARDIAC STRUCTURES: Nonenlarged heart. Aneurysmal intrathoracic aorta. LIVER: Dilated intrahepatic bile ducts no significant change since prior. No focal hepatic mass. GALLBLADDER : Absent gallbladder. BILIARY TREE: Dilated extrahepatic biliary tree to the level of the ampulla similar to prior study. PANCREAS: Dilated main pancreatic duct to an extent greater compared to the prior study. Low attenuat ing lesions in the pancreatic head are now apparent. SPLEEN: No significant abnormality is seen. ADRENALS: No significant abnormality is seen. KIDNEYS AND URETERS: No Renal collecting system dilatation. Subcentimeter hypoattenuating cysts seen in the kidneys. No renal calculi seen URINARY BLADDER: No significant abnormality is appreciated. ESOPHAGUS: No significant abnormality is seen. STOMACH: Surgical changes seen in the distal stomach. SMALL BOWEL: Normal in caliber. Few bowel loops demonstrate mild bowel thickening for example there i s 201 image 49 image 45). LARGE BOWEL: Normal in caliber. APPENDIX: Nonvisualized HERNIAS: No abdominal wall hernia seen. UTERUS/ADNEXA: Nonvisualized uterus. Difficult evaluation of the adnexa due to lack of abdominal fat. PERITONEUM/MESENTRY: No pneumoperitoneum or ascites. LYMPH NODES: No enlarged retroperitoneal or pelvic lymph nodes are appreciated. MAJOR VASCULAR STRUCTURES: Nonaneurysmal aorta. Surgical changes in the right inguinal region. OSSEOUS STRUCTURES: No acute osseous abnormality seen. Degenerative changes are seen in the lower lum bar spine. IMPRESSION: 1. Limited evaluation due to lack of abdominal fat and oral contrast. 2. Stable dilatation of the intra and extrahepatic biliary tree. 3. Increased dilatation of the main pancreatic duct with new hypoattenuating lesions in the pancreati c head. 4. Few small bowel loops demonstrating bowel wall thickening which could be reflective of under diste ntion and/or infection/inflammation.
[2021-02-23] MEDS ORDERED: MORPHINE SULFATE 4 MG/ML SYRINGE IVP STA (14:13)
[2021-02-23] MEDS ORDERED: ONDANSETRON 4 MG/2 ML VIAL IVP PRN (15:00)
[2021-02-23] MEDS ORDERED: NALOXONE 0.4 MG/ML 1 ML VIAL IV PRN (15:00)
--- NOTE | 2021-02-23 16:04 | US ---
EXAMINATION TYPE: US abdomen limited DATE OF EXAM: 02/23/2021 COMPARISON: CT's of the abdomen/pelvis most recently dated 02/23/2021 CLINICAL HISTORY: RUQ pain. Extreme RUQ pain, cholecystectomy, abn CT EXAM MEASUREMENTS: Liver Length: 16.1 cm Gallbladder Wall: Surgically absent CBD: 1.5 cm Right Kidney: 8.9 x 4.2 x 3.3 cm Pancreas: dilated duct with no obvious signs of lesions noted on CT at pancreatic head Liver: dilated intrahepatic ducts Gallbladder: Surgically absent Evidence for sonographic Deleon's sign: YES CBD: grossly dilated Right Kidney: small in size IMPRESSION: 1. The gallbladder is absent. 2. Intrahepatic and extrahepatic biliary ductal dilatation are present. 3. Pancreatic ductal dilatation without definite sonographic evidence of pancreatic head lesion. Furt her evaluation with MRI with MRCP could be considered if clinically indicated.
[2021-02-23] MEDS: HYDROmorphone 0.5 MG/0.5 ML SYRINGE IVP PRN ×2 (16:53→20:30)
--- NOTE | 2021-02-23 17:21 | P.HPIM ---
History of Present Illness H&P Date: 02/23/21 75 year-old female patient presents for evaluation of right upper quadrant abdominal pain. States pain radiates to her back, worsens with deep breathing. Reports mild nausea without vomiting. Denies fevers or chills. States she has has "gallstone removed" in the past. States symptoms started two days ago and has been worsening. She denies hematuria, dysuria, urinary frequency, or urgency. Patient denies any recent rash, cough, shortness of breath, chest pain, diarrhea, constipation, back pain, numbness, tingling, dizziness, weakness, headache, visual changes, or any other complaints. Workup in ED reveals a WBC of 4.8, hemoglobin 11.8 and platelet count of 320, sodium 135, potassium 4.9, BUN/creatinine of 10/0.75; CT of abdomen and pelvis was obtained which reveals no lesions on pancreatic head with dilated pancreatic duct, biliary tree appears stable Patient is currently admitted to the hospital for further evaluation by general surgery and oncology; right upper quadrant ultrasound is to be obtained Review of Systems REVIEW OF SYSTEMS: CONSTITUTIONAL: No fever, no malaise, no fatigue. HEENT: No recent visual problems or hearing problems. Denied any sore throat. CARDIOVASCULAR: No chest pain, orthopnea, PND, no palpitations, no syncope. PULMONARY: No shortness of breath, no cough, no hemoptysis. GASTROINTESTINAL: abdominal pain. NEUROLOGICAL: No headaches, no weakness, no numbness. HEMATOLOGICAL: Denies any bleeding or petechiae. GENITOURINARY: Denies any burning micturition, frequency, or urgency. MUSCULOSKELETAL/RHEUMATOLOGICAL: Denies any joint pain, swelling, or any muscle pain. ENDOCRINE: Denies any polyuria or polydipsia. The rest of the 14-point review of systems is negative. Past Medical History Past Medical History: COPD, GERD/Reflux, Osteoarthritis (OA) Additional Past Medical History / Comment(s): Chronic back pain, hx hemorrhoids, hx gastric ulcer. Anemic. History of Any Multi-Drug Resistant Organisms: None Reported Past Surgical History: Bowel Resection, Hernia Repair Additional Past Surgical History / Comment(s): Hemorrhoidectomy, gallstones removed, cataracts removed. Past Anesthesia/Blood Transfusion Reactions: No Reported Reaction Past Psychological History: Anxiety, Depression Smoking Status: Current every day smoker Past Alcohol Use History: Occasional Past Drug Use History: None Reported - Past Family History Mother Family Medical History: No Reported History Father Family Medical History: Cancer Additional Family Medical History / Comment(s): Lung cancer at age of 75. Sister(s) Family Medical History: Cancer Medications and Allergies Home Medications Medication Instructions Recorded Confirmed Type DULoxetine HCL [Cymbalta] 30 mg PO HS 12/07/19 05/28/20 History QUEtiapine [SEROquel] 100 mg PO HS 12/07/19 05/28/20 History clonazePAM [KlonoPIN] 1 mg PO BID PRN 12/07/19 05/28/20 History HYDROcodone/APAP 7.5-325MG [[place] 1 tab PO Q6H PRN 02/19/20 05/28/20 History 7.5-325] DULoxetine HCL [Cymbalta] 60 mg PO HS 05/28/20 05/28/20 History Gabapentin [Neurontin] 400 mg PO TID 05/28/20 05/28/20 History Ciprofloxacin HCl [Cipro] 500 mg PO Q12H 1 Days #14 tab 06/01/20 Rx Allergies Allergy/AdvReac Type Severity Reaction Status Date / Time iodine Allergy Anaphylaxis Verified 02/23/21 11:07 shellfish derived [Shellfish] Allergy Anaphylaxis Verified 02/23/21 11:07 Physical Exam Vitals: Vital Signs Temp Pulse Resp BP Pulse Ox 02/23/21 16:51 76 16 139/75 97 02/23/21 11:00 98.2 F 81 18 156/68 99 Intake and Output 02/23/21 02/23/21 02/23/21 06:59 14:59 22:59 Other: Weight 40.37 kg - Constitutional General appearance: Present: average body habitus, cooperative, no acute distress EENT Neck: Present: normal ROM. Absent: lymphadenopathy, rigidity, thyromegaly Carotids: negative: bruit present Thyroid: bilateral: normal size, negative: enlarged, nodule Respiratory: bilateral: CTA, negative: rales, rhonchi, wheezing Cardiovascular; Rhythm: regular; normal: S1, S2 Abnormal Heart Sounds: Absent: systolic murmur, diastolic murmur Gastrointestinal; Positive diffuse tenderness more so in upper abdomen Genitourinary Comment(s): deferred Integumentary: Present: normal turgor. Absent: jaundiced, rash, ulcer Neurologic: Present: CNII-XII intact. Absent: focal deficits Musculoskeletal: Present: gait normal, strength equal bilaterally Psychiatric: Present: A&O x's 3, appropriate affect, intact judgment & insight Results CBC & Chem 7: 02/23/21 11:56 02/23/21 11:56 Labs: Abnormal Lab Results - Last 24 Hours (Table) 02/23/21 02/23/21 02/23/21 Range/Units 11:44 11:56 11:56 RDW 15.7 H (11.5-15.5) % Sodium 135 L (137-145) mmol/L AST 54 H (14-36) U/L ALT 36 H (4-34) U/L Alkaline Phosphatase 154 H (38-126) U/L Urine Nitrite Positive H (Negative) Ur Leukocyte Esterase Trace H (Negative) Urine Bacteria Rare H (None) /hpf Assessment and Plan Assessment: 1. Abdominal pain; related to pancreatic lesion; new diagnosis - Abdominal ultrasound reveals intrahepatic and extrahepatic biliary ductal dilatation, pancreatic duct dilated without definite evidence of pancreatic head lesion; further evaluation with MRI with MRCP is recommended - Gen. surgery and oncology is consulted; GI service is not available - We will continue with slow IV fluid hydration with normal saline; continue with IV Dilaudid for pain control - Symptomatic treatment for nausea and vomiting 2. Transaminitis; likely related to possible pancreatic head lesions; we will continue to monitor liver enzymes 3. Mild UTI; UA is positive for nitrates and leukocyte esterase and rare bacteria - We will hold off on IV antibiotics at this time; further recommendations once urine culture is available; we will monitor CBC, CRP 4. Anxiety/depression; patient receives Cymbalta; a total of 90 mg by mouth daily at bedtime; Klonopin 1 mg by mouth twice a day when necessary 5. Insomnia; Seroquel 100 mg by mouth daily at bedtime 6. Osteoarthritis; patient takes [place] at home DVT prophylaxis; SCDs CODE STATUS; full code
[2021-02-23] MEDS ORDERED: ASPIRIN 325 MG TAB PO PRN (18:00)
[2021-02-23] MEDS: GABAPENTIN 400 MG CAP PO SCH (20:26)
[2021-02-23] MEDS: DULoxetine HCL 60 MG CAPSULE.DR PO SCH (20:26)
[2021-02-23] MEDS: DULoxetine HCL 30 MG CAPSULE.DR PO SCH (20:26)
[2021-02-23] MEDS: QUEtiapine 100 MG TAB PO SCH (20:26)
[2021-02-24] MEDS: HYDROmorphone 0.5 MG/0.5 ML SYRINGE IVP PRN ×3 (05:18→12:10)
[2021-02-24] MEDS: GABAPENTIN 400 MG CAP PO SCH ×3 (07:57→21:04)
[2021-02-24] MEDS: clonazePAM 1 MG TAB PO PRN ×2 (08:19→21:05)
--- NOTE | 2021-02-24 10:15 | P.GSCN ---
History of Present Illness Consult date: 02/24/21 Reason for Consult: Abdominal pain History of present illness: The patient is a 75-year-old female whose had some abdominal pain in the right upper quadrant. It is there all the time. Does not change with eating. She has no nausea or vomiting. Patient had a CT scan showing intrahepatic and extrahepatic biliary dilation along with possible pancreatic mass. She denies any jaundice, tea colored urine or acholic stool. Denies history of gallardo creatitis.Bowels are moving fairly normal for her. Review of Systems All systems: negative Past Medical History Past Medical History: COPD, GERD/Reflux, Osteoarthritis (OA) Additional Past Medical History / Comment(s): Chronic back pain, hx hemorrhoids, hx gastric ulcer. Anemic. History of Any Multi-Drug Resistant Organisms: None Reported Past Surgical History: Bowel Resection, Hernia Repair Additional Past Surgical History / Comment(s): Hemorrhoidectomy, gallstones removed, cataracts removed. Past Anesthesia/Blood Transfusion Reactions: No Reported Reaction Past Psychological History: Anxiety, Depression Smoking Status: Current every day smoker Past Alcohol Use History: Occasional Past Drug Use History: None Reported - Past Family History Mother Family Medical History: No Reported History Father Family Medical History: Cancer Additional Family Medical History / Comment(s): Lung cancer at age of 75. Sister(s) Family Medical History: Cancer Medications and Allergies Home Medications Medication Instructions Recorded Confirmed Type QUEtiapine [SEROquel] 100 mg PO HS 12/07/19 02/23/21 History clonazePAM [KlonoPIN] 1 mg PO BID PRN 12/07/19 02/23/21 History HYDROcodone/APAP 7.5-325MG [[place] 1 tab PO Q8HR PRN 02/19/20 02/23/21 History 7.5-325] DULoxetine HCL [Cymbalta] 60 mg PO DAILY 05/28/20 02/23/21 History Aspirin 325 mg PO DAILY PRN 02/23/21 02/23/21 History Allergies Allergy/AdvReac Type Severity Reaction Status Date / Time iodine Allergy Anaphylaxis Verified 02/23/21 11:07 shellfish derived [Shellfish] Allergy Anaphylaxis Verified 02/23/21 11:07 Surgical - Exam Osteopathic Statement: *. No significant issues noted on an osteopathic structural exam other than those noted in the History and Physical/Consult. Vital Signs Temp Pulse Resp BP Pulse Ox 98.2 F 81 18 156/68 99 02/23/21 11:00 02/23/21 11:00 02/23/21 11:00 02/23/21 11:00 02/23/21 11:00 - General Thin but age-appropriate well developed, no distress - Eyes no icteric - Neck trachea midline - Respiratory normal respiratory effort, clear to auscultation - Cardiovascular Rhythm: regular - Abdomen Abdomen: soft, non tender, bowel sounds - Musculoskeletal She has some exquisite tenderness along the anterior right rib cage. This repro duces her pain Results - Labs 02/23/21 11:56 02/23/21 11:56 Abnormal Lab Results - Last 24 Hours (Table) 02/23/21 02/23/21 02/23/21 Range/Units 11:44 11:56 11:56 RDW 15.7 H (11.5-15.5) % Sodium 135 L (137-145) mmol/L AST 54 H (14-36) U/L ALT 36 H (4-34) U/L Alkaline Phosphatase 154 H (38-126) U/L Urine Nitrite Positive H (Negative) Ur Leukocyte Esterase Trace H (Negative) Urine Bacteria Rare H (None) /hpf Microbiology - Last 24 Hours (Table) 02/23/21 11:44 Urine Culture - Preliminary Urine,Clean Catch Diabetes panel 02/23/21 Range/Units 11:56 Sodium 135 L (137-145) mmol/L Potassium 4.9 (3.5-5.1) mmol/L Chloride 101 (98-107) mmol/L Carbon Dioxide 27 (22-30) mmol/L BUN 10 (7-17) mg/dL Creatinine 0.75 (0.52-1.04) mg/dL Glucose 88 (74-99) mg/dL Calcium 9.5 (8.4-10.2) mg/dL AST 54 H (14-36) U/L ALT 36 H (4-34) U/L Alkaline Phosphatase 154 H (38-126) U/L Total Protein 7.2 (6.3-8.2) g/dL Albumin 4.0 (3.5-5.0) g/dL Calcium panel 02/23/21 Range/Units 11:56 Calcium 9.5 (8.4-10.2) mg/dL Albumin 4.0 (3.5-5.0) g/dL Pituitary panel 02/23/21 Range/Units 11:56 Sodium 135 L (137-145) mmol/L Potassium 4.9 (3.5-5.1) mmol/L Chloride 101 (98-107) mmol/L Carbon Dioxide 27 (22-30) mmol/L BUN 10 (7-17) mg/dL Creatinine 0.75 (0.52-1.04) mg/dL Glucose 88 (74-99) mg/dL Calcium 9.5 (8.4-10.2) mg/dL Adrenal panel 02/23/21 Range/Units 11:56 Sodium 135 L (137-145) mmol/L Potassium 4.9 (3.5-5.1) mmol/L Chloride 101 (98-107) mmol/L Carbon Dioxide 27 (22-30) mmol/L BUN 10 (7-17) mg/dL Creatinine 0.75 (0.52-1.04) mg/dL Glucose 88 (74-99) mg/dL Calcium 9.5 (8.4-10.2) mg/dL Total Bilirubin 0.5 (0.2-1.3) mg/dL AST 54 H (14-36) U/L ALT 36 H (4-34) U/L Alkaline Phosphatase 154 H (38-126) U/L Total Protein 7.2 (6.3-8.2) g/dL Albumin 4.0 (3.5-5.0) g/dL - Imaging CT scan - abdomen: report reviewed Assessment and Plan (1) Dilation of biliary tract Current Visit: Yes Status: Acute Code(s): K83.8 - OTHER SPECIFIED DISEASES OF BILIARY TRACT SNOMED Code(s): 180040725 (2) History of resection of stomach Current Visit: Yes Status: Acute Code(s): Z90.3 - ACQUIRED ABSENCE OF STOMACH [PART OF] SNOMED Code(s): 015028663 (3) Pancreatic lesion Current Visit: Yes Status: Acute Code(s): K86.9 - DISEASE OF PANCREAS, UNSPECIFIED SNOMED Code(s): 5539637 Plan: I am able to reproduce the pain the patient is having. This is coming from the ribs. Due to the dilation of the biliary tree and possible pancreatic mass, I recommend MRCP. If there is truly a pancreatic mass, the history of gastric resection complicates the situation as she would not be a candidate for ERCP. Work-up at a tertiary center . She is currently nonsurgical
[2021-02-24 10:34] LABS: Basophils # (A) 0.02 X 10*3/uL (0.00-0.10); Basophils % (A) 0.4 %; Eosinophils # (A) 0.01 X 10*3/uL (0.04-0.35); Eosinophils % (A) 0.2 %; HCT 38.3 % (37.2-46.3); HGB 11.5 g/dL (12.0-15.0); Lymphocytes # (A) 1.94 X 10*3/uL (0.90-5.00); Lymphocytes % (A) 38.6 %; MCH 28.1 pg (27.0-32.0); MCV 93.6 fL (80.0-97.0); Mean Platelet Volume 10.2 fL (9.5-12.2); Monocytes # (A) 0.81 X 10*3/uL (0.20-1.00); Monocytes % (A) 16.1 %; Neutrophils # (A) 2.24 X 10*3/uL (1.80-7.70); Neutrophils % (A) 44.5 %; Platelet Count 363 X 10*3/uL (140-440); RBC 4.09 X 10*6/uL (4.10-5.20); RDW 16.1 % (11.5-14.5); WBC 5.03 X 10*3/uL (4.50-10.00)
[2021-02-24 11:16] LABS: BUN/Creat Ratio 9.78 Ratio (12.00-20.00); Blood Urea Nitrogen 7.5 mg/dL (9.0-27.0); Calcium 9.3 mg/dL (8.7-10.3); Carbon Dioxide 25.1 mmol/L (20.0-27.5); Chloride 101 mmol/L (96-109); Glucose 104 mg/dL (70-110); Potassium 4.7 mmol/L (3.5-5.5); Sodium 140 mmol/L (135-145)
[2021-02-24 11:32] LABS: Procalcitonin 0.03 ng/mL (0.02-0.09)
[2021-02-24 11:33] LABS: C Reactive Protein <0.30 mg/dL (0.00-0.80); Cancer Antigen 19-9 <2.0 U/mL (0.0-34.9)
[2021-02-24] MEDS: DEXTROSE 5%-0.9% NACL 1,000 ML IV SCH (14:05)
[2021-02-24 14:17] VITALS: BMI 16.2
[2021-02-24] MEDS: HYDROmorphone 1 MG/ML 1 ML SYRINGE IVP PRN ×2 (14:59→19:42)
--- NOTE | 2021-02-24 17:06 | P.CONS ---
History of Present Illness - Reason for Consult Consult date: 02/24/21 pancreatic head lesion Requesting physician: Yina Young - Chief Complaint abd pain - History of Present Illness Mrs. Vicente is a very pleasant woman we have been asked to see for pancreatic head lesion found on imaging done for pt presentation of abd pain. Pt states pain started about 2 days ago, RUQ, feels like when she had gallstones, radiates around to side, she has nausea but denies vomiting. She has a Hx of abd surgery for ulcer. Denies changes in her appetite, she states she has always been petite and thin, no acute wt. loss, appetite poor right now 2/2 epigastric pain, denies heartburn or indigestion, acute changes in bowel habits, stool color or consistency. She denies a history of pancreatitis. Pt has no personal Hx of cancer, father had lung cancer, sister from what sounds like a boat designer malignancy at 58 Review of Systems 14 point ROS is neg except as stated in HPI Past Medical History Past Medical History: COPD, GERD/Reflux, Osteoarthritis (OA) Additional Past Medical History / Comment(s): Chronic back pain, hx hemorrhoids, hx gastric ulcer. Anemic. History of Any Multi-Drug Resistant Organisms: None Reported Past Surgical History: Bowel Resection, Hernia Repair Additional Past Surgical History / Comment(s): Hemorrhoidectomy, gallstones removed, cataracts removed. Past Anesthesia/Blood Transfusion Reactions: No Reported Reaction Past Psychological History: Anxiety, Depression Smoking Status: Current every day smoker Past Alcohol Use History: Occasional Past Drug Use History: None Reported - Past Family History Mother Family Medical History: No Reported History Father Family Medical History: Cancer Additional Family Medical History / Comment(s): Lung cancer at age of 75. Sister(s) Family Medical History: Cancer Medications and Allergies Home Medications Medication Instructions Recorded Confirmed Type QUEtiapine [SEROquel] 100 mg PO HS 12/07/19 02/23/21 History clonazePAM [KlonoPIN] 1 mg PO BID PRN 12/07/19 02/23/21 History HYDROcodone/APAP 7.5-325MG [[place] 1 tab PO Q8HR PRN 02/19/20 02/23/21 History 7.5-325] DULoxetine HCL [Cymbalta] 60 mg PO DAILY 05/28/20 02/23/21 History Aspirin 325 mg PO DAILY PRN 02/23/21 02/23/21 History Allergies Allergy/AdvReac Type Severity Reaction Status Date / Time iodine Allergy Anaphylaxis Verified 02/23/21 11:07 shellfish derived [Shellfish] Allergy Anaphylaxis Verified 02/23/21 11:07 Physical Exam Vitals: Vital Signs Temp Pulse Pulse Resp BP BP Pulse Ox 02/24/21 07:00 98.2 F 72 16 138/54 93 L 02/24/21 02:00 98.1 F 73 20 121/69 95 02/23/21 20:15 84 20 02/23/21 19:55 97.7 F 74 16 129/76 98 02/23/21 16:51 76 16 139/75 97 Intake and Output 02/23/21 02/24/21 02/24/21 22:59 06:59 14:59 Other: Voiding Method Toilet Toilet # Voids 1 2 Weight 37.8 kg - Constitutional General appearance: cooperative, mild distress (rubbing RUQ and rt rib cage), thin - EENT Eyes: anicteric sclerae, EOMI - Neck Neck: no lymphadenopathy - Respiratory Respiratory: bilateral: CTA - Cardiovascular Rhythm: regular Heart sounds: normal: S1, S2 Abnormal Heart Sounds: no systolic murmur, no diastolic murmur, no rub, no S3 Gallop, no S4 Gallop, no click, no other leg Peripheral Edema: bilateral: None - Gastrointestinal midline incision from gastric ulcer surgery General gastrointestinal: soft Localized gastrointestinal: tender: RUQ, epigastric periumbilical - Neurologic Neurologic: CNII-XII intact - Musculoskeletal Musculoskeletal: generalized weakness - Psychiatric Psychiatric: A&O x's 3, appropriate affect, intact judgment & insight Results CBC & Chem 7: 02/24/21 06:00 02/24/21 06:00 Labs: Abnormal Lab Results - Last 24 Hours (Table) 02/23/21 02/23/21 02/23/21 Range/Units 11:44 11:56 11:56 RBC (4.10-5.20) X 10*6/uL Hgb (12.0-15.0) g/dL MCHC (32.0-37.0) g/dL RDW 15.7 H (11.5-15.5) % Eosinophils # (0.04-0.35) X 10*3/uL Sodium 135 L (137-145) mmol/L BUN (9.0-27.0) mg/dL BUN/Creatinine Ratio (12.00-20.00) Ratio AST 54 H (14-36) U/L ALT 36 H (4-34) U/L Alkaline Phosphatase 154 H (38-126) U/L Urine Nitrite Positive H (Negative) Ur Leukocyte Esterase Trace H (Negative) Urine Bacteria Rare H (None) /hpf 02/24/21 02/24/21 Range/Units 06:00 06:00 RBC 4.09 L (4.10-5.20) X 10*6/uL Hgb 11.5 L (12.0-15.0) g/dL MCHC 30.0 L (32.0-37.0) g/dL RDW 16.1 H (11.5-15.5) % Eosinophils # 0.01 L (0.04-0.35) X 10*3/uL Sodium (137-145) mmol/L BUN 7.5 L (9.0-27.0) mg/dL BUN/Creatinine Ratio 9.78 L (12.00-20.00) Ratio AST (14-36) U/L ALT (4-34) U/L Alkaline Phosphatase (38-126) U/L Urine Nitrite (Negative) Ur Leukocyte Esterase (Negative) Urine Bacteria (None) /hpf Microbiology - Last 24 Hours (Table) 02/23/21 11:44 Urine Culture - Preliminary Urine,Clean Catch CT scan - abdomen: report reviewed CT scan - pelvis: report reviewed US - abdomen: report reviewed Assessment and Plan (1) Abdominal pain Current Visit: Yes Status: Acute Priority: High Code(s): R10.9 - UNSPECIFIED ABDOMINAL PAIN SNOMED Code(s): 94482568 (2) Dilation of biliary tract Current Visit: Yes Status: Acute Priority: High Code(s): K83.8 - OTHER SPECIFIED DISEASES OF BILIARY TRACT SNOMED Code(s): 787611658 (3) Pancreatic lesion Current Visit: Yes Status: Acute Priority: High Code(s): K86.9 - DISEASE OF PANCREAS, UNSPECIFIED SNOMED Code(s): 6769738 Plan: Pancreatic head lesion seen on CT not seen on US. Reviewed Surgery notes, plan for MRCP, pending results Attending has ordered Ca 19.9 Pending results to make further recommendations
--- NOTE | 2021-02-24 18:20 | MR ---
MR MRCP INDICATION: Patient age:Female; 75 years old; Reason for study: Biliary dilation, pancreatic mass on CT scan; COMPARISON: No prior studies are available for comparison at [facility]. TECHNIQUE: Multi planar, multi sequence MRI Department protocol. Maximum intensity projection images were reconstructed from the original data of the biliary tree. No Gadolinium given. FINDINGS: Exam limited by motion. MRCP: The intrahepatic ducts are dilated similar to prior. The common bile duct at the level of the pancreatic head measures 11 mm in size. The common hepatic duct measures 17 mm in size. The pancrea tic duct is dilated similar to prior measuring up to 8 mm. There remains no filling defect within the biliary system. Pancreatic low-density lesions seen on CT correlate with high T2 signal curvilinear side branch pancr eatic ducts that are dilated. These are seen within the pancreatic uncinate process but also are seen throughout the remainder of the pancreatic parenchyma. The gallbladder appears surgically absent. Abdomen: The liver, spleen, adrenal glands, and pancreas have a normal noncontrast appearance. Kidneys demonstrate multiple subcentimeter high T2 low T1 signal cysts. There is no evidence of hydro nephrosis. IMPRESSION: 1. Low-density lesions within the pancreatic head are felt to be relate to dilated sidebranch pancrea tic ducts. No obvious pancreatic mass identified. The exam is limited by motion. 2. Redemonstration of moderate to severe central intrahepatic and extra hepatic biliary dilatation. T here is moderate diffuse pancreatic ductal dilatation with gradual tapering towards the ampulla. Ther e remains no obvious filling defect or mass. Ampullary mass needs to be excluded if not already done so with ERCP. 3. No evidence to suggest ductal stricture, choledocholithiasis.
--- NOTE | 2021-02-24 19:14 | P.PN ---
Subjective Progress Note Date: 02/24/21 The patient went for MRCP today Objective - Vital Signs Vital signs: Vital Signs Temp 98.1 F 02/24/21 15:15 Pulse 72 02/24/21 15:15 Resp 16 02/24/21 15:15 BP 137/67 02/24/21 15:15 Pulse Ox 94 L 02/24/21 15:15 Intake & Output 02/24/21 02/24/21 02/25/21 06:59 18:59 06:59 Intake Total 0 Balance 0 Weight 37.8 kg 37.8 kg Intake: Oral 0 Other: Voiding Method Toilet # Voids 2 1 - Labs CBC & Chem 7: 02/24/21 06:00 02/24/21 06:00 Labs: Abnormal Lab Results - Last 24 Hours (Table) 02/24/21 02/24/21 Range/Units 06:00 06:00 RBC 4.09 L (4.10-5.20) X 10*6/uL Hgb 11.5 L (12.0-15.0) g/dL MCHC 30.0 L (32.0-37.0) g/dL RDW 16.1 H (11.5-14.5) % Eosinophils # 0.01 L (0.04-0.35) X 10*3/uL BUN 7.5 L (9.0-27.0) mg/dL BUN/Creatinine Ratio 9.78 L (12.00-20.00) Ratio Microbiology - Last 24 Hours (Table) 02/23/21 11:44 Urine Culture - Preliminary Urine,Clean Catch Gram Neg Bacilli - Imaging and Cardiology MRCP reviewed. Low-density lesions in the pancreatic head are felt to be dilated pancreatic ducts with no obvious mass identified. There is moderate to severe intrahepatic, extrahepatic and pancreatic ductal dilation. Recommendation was to rule out ampullary mass Assessment and Plan (1) Dilation of biliary tract Current Visit: Yes Status: Acute Priority: High Code(s): K83.8 - OTHER SPECIFIED DISEASES OF BILIARY TRACT SNOMED Code(s): 735882667 (2) History of resection of stomach Current Visit: Yes Status: Acute Code(s): Z90.3 - ACQUIRED ABSENCE OF STOMACH [PART OF] SNOMED Code(s): 136741824 Plan: The patient has relatively asymptomatic biliary and pancreatic dilation. Unfortunately she is not a candidate for ERCP due to previous gastric surgery. I would recommend outpatient evaluation at a tertiary center. Her pain today seems to be primarily musculoskeletal over the right ribs. Recommend supportive care for that.
[2021-02-24] MEDS: DULoxetine HCL 30 MG CAPSULE.DR PO SCH (21:04)
[2021-02-24] MEDS: DULoxetine HCL 60 MG CAPSULE.DR PO SCH (21:04)
[2021-02-24] MEDS: QUEtiapine 100 MG TAB PO SCH (21:04)
[2021-02-25] MEDS: HYDROmorphone 1 MG/ML 1 ML SYRINGE IVP PRN ×5 (04:32→20:52)
[2021-02-25] MEDS: GABAPENTIN 400 MG CAP PO SCH ×4 (08:10→21:05)
--- NOTE | 2021-02-25 08:18 | P.PN ---
Subjective Progress Note Date: 02/25/21 Principal diagnosis: Pancreatic mass This is a continued proximal known is some 5-year-old black female essentially admitted because of abnormal computed tomography scan. MRCP did not show significant pancreatic lesion except for dilatation. We will advance her diet she still complains of significant pain but does not seem toxic at this time. No jaundice noted. Upper quadrant pain is stated. No significant problems with voiding stated. Objective - Vital Signs Vital signs: Vital Signs Temp 98.7 F 02/25/21 02:16 Pulse 73 02/25/21 02:16 Resp 16 02/25/21 08:00 BP 109/63 02/25/21 02:16 Pulse Ox 93 L 02/25/21 02:16 Intake & Output 02/24/21 02/25/21 02/25/21 18:59 06:59 18:59 Intake Total 0 Balance 0 Weight 37.8 kg Intake: Oral 0 Other: Voiding Method Toilet # Voids 1 1 - Constitutional General appearance: Present: thin - EENT Eyes: Absent: abnormal pupil - Respiratory Respiratory: bilateral: CTA - Cardiovascular Rhythm: regular Heart sounds: normal: S1, S2 Abnormal Heart Sounds: Absent: S3 Gallop - Gastrointestinal General gastrointestinal: Present: soft. Absent: tenderness - Integumentary Integumentary: Absent: cellulitis - Psychiatric Psychiatric: Present: A&O x's 3 - Labs CBC & Chem 7: 02/24/21 06:00 02/24/21 06:00 Labs: Abnormal Lab Results - Last 24 Hours (Table) 02/24/21 02/24/21 Range/Units 06:00 06:00 RBC 4.09 L (4.10-5.20) X 10*6/uL Hgb 11.5 L (12.0-15.0) g/dL MCHC 30.0 L (32.0-37.0) g/dL RDW 16.1 H (11.5-14.5) % Eosinophils # 0.01 L (0.04-0.35) X 10*3/uL BUN 7.5 L (9.0-27.0) mg/dL BUN/Creatinine Ratio 9.78 L (12.00-20.00) Ratio Microbiology - Last 24 Hours (Table) 02/23/21 11:44 Urine Culture - Preliminary Urine,Clean Catch Gram Neg Bacilli Assessment and Plan (1) Abdominal pain Current Visit: Yes Status: Acute Priority: High Code(s): R10.9 - UNSPECIFIED ABDOMINAL PAIN SNOMED Code(s): 09011792 (2) Dilation of biliary tract Current Visit: Yes Status: Acute Priority: High Code(s): K83.8 - OTHER SPECIFIED DISEASES OF BILIARY TRACT SNOMED Code(s): 611825854 (3) Pancreatic lesion Current Visit: Yes Status: Acute Priority: High Code(s): K86.9 - DISEASE OF PANCREAS, UNSPECIFIED SNOMED Code(s): 5720765 (4) Smoker Current Visit: No Status: Acute Code(s): F17.200 - NICOTINE DEPENDENCE, UNSPECIFIED, UNCOMPLICATED SNOMED Code(s): 59895046 Plan: Advance diet. Appreciate multiple consultants input. If tolerating diet, hopefully we can discharge. Laboratories were reviewed.
[2021-02-25] MEDS: DEXTROSE 5%-0.9% NACL 1,000 ML IV SCH (08:23)
[2021-02-25] MEDS: SULFAMETHOX-TMP 800-160MG 1 EACH TAB PO SCH ×2 (10:13→20:59)
--- NOTE | 2021-02-25 13:21 | P.PN ---
Subjective Progress Note Date: 02/25/21 Principal diagnosis: Imaging suspicious for Pancreatic head mass In f/u today pt cont to c/o of pain in the RUQ, under the ribs, deep, feels like pressure. Hurts with movement, pain meds have helped some. Objective - Vital Signs Vital signs: Vital Signs Temp 98.7 F 02/25/21 08:00 Pulse 81 02/25/21 08:00 Resp 18 02/25/21 08:00 BP 137/73 02/25/21 08:00 Pulse Ox 99 02/25/21 08:00 Intake & Output 02/24/21 02/25/21 02/25/21 18:59 06:59 18:59 Intake Total 0 118 Balance 0 118 Weight 37.8 kg Intake: Oral 0 118 Other: Voiding Method Toilet # Voids 1 1 1 - Constitutional General appearance: Present: cooperative, no acute distress, thin - EENT Eyes: Present: anicteric sclerae, EOMI ENT: Present: hearing grossly normal - Respiratory Details: resp even and unlabored - Gastrointestinal Gastrointestinal Comment(s): middle of the rib cage is where pt points to, unable to palpate any deformity or mass, she states the pressure is deeper - Musculoskeletal Musculoskeletal: Present: generalized weakness - Psychiatric Psychiatric: Present: A&O x's 3, appropriate affect, intact judgment & insight - Labs CBC & Chem 7: 02/24/21 06:00 02/24/21 06:00 Labs: Microbiology - Last 24 Hours (Table) 02/23/21 11:44 Urine Culture - Preliminary Urine,Clean Catch Gram Neg Bacilli - Imaging and Cardiology MRI - abdomen: report reviewed Assessment and Plan (1) Abdominal pain Current Visit: Yes Status: Acute Priority: High Code(s): R10.9 - UNSPECIFIED ABDOMINAL PAIN SNOMED Code(s): 46095010 (2) Dilation of biliary tract Current Visit: Yes Status: Acute Priority: High Code(s): K83.8 - OTHER SPECIFIED DISEASES OF BILIARY TRACT SNOMED Code(s): 742598168 (3) Pancreatic lesion Current Visit: Yes Status: Acute Priority: High Code(s): K86.9 - DISEASE OF PANCREAS, UNSPECIFIED SNOMED Code(s): 7595599 Plan: Pancreatic head lesion seen on CT not seen on US. MRCP done. Reviewed Surgery notes. Pt needs teritary care for ERCP evaluation. Ca 19.9 and AFP are WNL, no unusual numbers to give recommendations for. Agree with Attending and Surgeon recommendations for further investigation with ERCP Reviewed with pt, all questions answered to the best of my ability
[2021-02-25 15:29] VITALS: RESP 16
[2021-02-25] MEDS: QUEtiapine 100 MG TAB PO SCH (20:59)
[2021-02-25] MEDS: DULoxetine HCL 30 MG CAPSULE.DR PO SCH (20:59)
[2021-02-25] MEDS: DULoxetine HCL 60 MG CAPSULE.DR PO SCH (20:59)
[2021-02-26] MEDS: HYDROmorphone 1 MG/ML 1 ML SYRINGE IVP PRN ×2 (05:00→08:39)
[2021-02-26 05:56] VITALS: TEMP 98.2
[2021-02-26] MEDS: DEXTROSE 5%-0.9% NACL 1,000 ML IV SCH (05:56)
[2021-02-26] MEDS: GABAPENTIN 400 MG CAP PO SCH (08:36)
[2021-02-26] MEDS: SULFAMETHOX-TMP 800-160MG 1 EACH TAB PO SCH (08:39)
[2021-02-26 08:52] VITALS: BP 121/62; PULSE 69
--- NOTE | 2021-02-26 08:55 | P.DS ---
Providers Date of admission: 02/24/21 13:43 Attending physician: Markus Nicole Consults: 02/23/21 15:01 Consult Physician Routine Consulting Provider: Adeola Babin Consult Reason/Comments: RUQ pain; new pancreatic lesions Do you want consulting provider notified?: Yes 02/23/21 15:05 Consult Physician Routine Consulting Provider: Jose Jay Consult Reason/Comments: New pancreatic head lesions Do you want consulting provider notified?: Yes Primary care physician: Markus Nicole - Discharge Diagnosis(es) (1) Abdominal pain Current Visit: Yes Status: Acute Priority: High (2) Dilation of biliary tract Current Visit: Yes Status: Acute Priority: High (3) Pancreatic lesion Current Visit: Yes Status: Acute Priority: High (4) Smoker Current Visit: No Status: Acute Hospital Course: The patient is a 75-year-old black female essentially admitted for right upper quadrant pain. Computed tomography scan showed possible necrotic mass. Evaluation with MRCP did not show this. Appreciate surgical evaluation. She is tolerating liquid diet and will advance. The patient will follow-up with me in 4-5 days and if this pain, does not amy. We are requesting tertiary care center. Prognosis is guarded but stable. Patient Condition at Discharge: Stable Plan - Discharge Summary Discharge Rx Participant: No New Discharge Prescriptions: New Sulfamethox-Tmp 800-160Mg [Bactrim DS 800-160 mg] 1 each PO BID #10 tab Continue QUEtiapine [SEROquel] 100 mg PO HS clonazePAM [KlonoPIN] 1 mg PO BID PRN PRN Reason: Anxiety HYDROcodone/APAP 7.5-325MG [[place] 7.5-325] 1 tab PO Q8HR PRN PRN Reason: Pain DULoxetine HCL [Cymbalta] 60 mg PO DAILY Aspirin 325 mg PO DAILY PRN PRN Reason: Pain Discharge Medication List QUEtiapine [SEROquel] 100 mg PO HS 12/07/19 [History] clonazePAM [KlonoPIN] 1 mg PO BID PRN 12/07/19 [History] HYDROcodone/APAP 7.5-325MG [[place] 7.5-325] 1 tab PO Q8HR PRN 02/19/20 [History] DULoxetine HCL [Cymbalta] 60 mg PO DAILY 05/28/20 [History] Aspirin 325 mg PO DAILY PRN 02/23/21 [History] Sulfamethox-Tmp 800-160Mg [Bactrim DS 800-160 mg] 1 each PO BID #10 tab 02/26/21 [Rx] Follow up Appointment(s)/Referral(s): Markus Nicole MD [Primary Care Provider] - 1-2 days [facility] Visiting Nurse, [NON-STAFF] - 1-2 Days
[2021-02-26 10:11] LABS: African American GFR (CKD) 97.5 (60.0-200.0); Albumin 3.4 g/dL (3.8-4.9); Albumin/Globulin Ratio 1.62 (1.60-3.17); Anion Gap 9.4 mmol/L (10.00-18.00); BUN/Creat Ratio 3.57 Ratio (12.00-20.00); Blood Urea Nitrogen 2.5 mg/dL (9.0-27.0); Calcium 8.9 mg/dL (8.7-10.3); Carbon Dioxide 25.6 mmol/L (20.0-27.5); Globulin 2.1 g/dL (1.6-3.3); Non-African American GFR(CKD) 84.2 (60.0-200.0); Total Bilirubin 0.3 mg/dL (0.30-1.20); Total Protein 5.5 g/dL (6.2-8.2)
[2021-02-26] MEDS ORDERED: HYDROcodone/APAP 7.5-325MG 1 EACH TAB PO PRN (10:32)
== END 2021-02-26 13:47 | disposition home health service (06) | DRG 439 ==
LOC: EC 10:59 → 6NMEDSUR 15:11 → OBSVTOIN 02-24 13:43
PROVIDERS: ADMIT Family Medicine; ATTEND Family Medicine
DX: K86.89 Other specified diseases of pancreas (principal); N39.0 Urinary tract infection, site not specified; J44.9 Chronic obstructive pulmonary disease, unspecified; Z20.822 Contact with and (suspected) exposure to COVID-19; K21.9 Gastro-esophageal reflux disease without esophagitis; M19.90 Unspecified osteoarthritis, unspecified site; G89.29 Other chronic pain; M54.9 Dorsalgia, unspecified; F32.A Depression, unspecified; F41.9 Anxiety disorder, unspecified; R74.01 Elevation of levels of liver transaminase levels; G47.00 Insomnia, unspecified; F17.200 Nicotine dependence, unspecified, uncomplicated; Z71.6 Tobacco abuse counseling; Z79.82 Long term (current) use of aspirin; Z79.899 Other long term (current) drug therapy; Z87.11 Personal history of peptic ulcer disease; Z90.3 Acquired absence of stomach [part of]; Z90.49 Acquired absence of other specified parts of digestive tract; Z87.19 Personal history of other diseases of the digestive system; Z86.2 Personal history of diseases of the blood and blood-forming organs and certain disorders involving the immune mechanism; Z98.42 Cataract extraction status, left eye; Z98.41 Cataract extraction status, right eye; Z98.890 Other specified postprocedural states; Z88.8 Allergy status to other drugs, medicaments and biological substances; Z91.013 Allergy to seafood; Z80.1 Family history of malignant neoplasm of trachea, bronchus and lung
CPT/HCPCS: 36415; 74177; 74181; 76705; 80048; 80053; 81001; 82105; 83605; 83690; 84145; 84484; 85025; 86140; 86301; 87077; 87086; 87186; 87635; 93005; 96361; 96374; 96375; 96376; 99285

== ENCOUNTER 2021-06-23 17:17 | Emergency (ER) | payer MEDICARE, OTHER ==
[2021-06-23 17:50] VITALS: BP 109/53; PULSE 72; RESP 16; TEMP 97.7
--- NOTE | 2021-06-23 20:00 | XR ---
EXAMINATION TYPE: XR chest 2V DATE OF EXAM: 06/23/2021 COMPARISON: 12/07/2019 HISTORY: Chest pain TECHNIQUE: FINDINGS: Heart is normal. Lungs are clear of consolidation. There are no hilar masses. Costophrenic angles are clear. Bony thorax appears intact. There is mild subsegmental atelectasis left lung base. No hilar masses. IMPRESSION: Minimal subsegmental atelectasis left lung base. Normal heart. There is overall no signif icant change.
== END 2021-06-23 21:39 | disposition left against medical advice (07) ==
LOC: EC 17:17
DX: Z53.21 Procedure and treatment not carried out due to patient leaving prior to being seen by health care provider (principal)
CPT/HCPCS: 71046; 93005

== ENCOUNTER → 2021-09-02 | Outpatient (CLI) | payer MEDICARE, OTHER ==
--- NOTE | 2021-09-03 09:03 | MM ---
Reason for Exam: Screening (asymptomatic). Last mammogram was performed 2 year(s) and 8 month(s) ago. Patient History: Menarche at age 11. First Full-Term at age 20. Left ovary removed at age 33. Right ovary removed at age 33. Hysterectomy at age 33. Postmenopausal. 1998, Benign Excisional Biopsy on the left side. Sister had breast cancer. Risk Values: [place] 5 year model risk: 3.9%. NCI Lifetime model risk: 7.4%. Prior Study Comparison: 12/30/2016 Left Diagnostic Mammogram, [facility]. 12/31/2017 Bilateral Screening Mammogram, [facility]. 01/02/2019 Bilateral Screening Mammogram, [facility]. Tissue Density: The breast tissue is extremely dense which could obscure a lesion on mammography. Findings: Analyzed By CAD. Stable distortion in the left breast upper outer aspect from prior excisional biopsy. Benign-appearing vascular calcification is present. There is no suspicious group of microcalcifications or new suspicious mass in either breast. Overall Assessment: Benign, BI-RAD 2 Management: Screening Mammogram of both breasts in 1 year. A clinical breast exam by your physician is recommended on an annual basis and results should be correlated with mammographic findings. Managed on and off pain in both breasts on clinical basis. Some advice bilateral ultrasound surveillance in patients with background dense tissue. Electronically signed and approved by: Albert Keenan M.D.
== END | disposition home or self-care (01) ==
LOC: RADMAMWWP 08:01
PROVIDERS: ATTEND Family Medicine
DX: Z12.31 Encounter for screening mammogram for malignant neoplasm of breast (principal); Z78.0 Asymptomatic menopausal state; Z80.3 Family history of malignant neoplasm of breast
CPT/HCPCS: 77063; 77067

== ENCOUNTER → 2021-09-19 | Outpatient (CLI) | payer MEDICARE, OTHER ==
--- NOTE | 2021-09-19 10:21 | USB ---
Patient History: Menarche at age 11. First Full-Term at age 20. Left ovary removed at age 33. Right ovary removed at age 33. Hysterectomy at age 33. Postmenopausal. 1998, Benign Excisional Biopsy on the left side. Sister had breast cancer. Risk Values: [place] 5 year model risk: 3.9%. NCI Lifetime model risk: 7.4%. Technique: Method: Whole Breast Automated. Prior Study Comparison: 12/31/2017 Bilateral Screening Mammogram, [facility]. 01/02/2019 Bilateral Screening Mammogram, [facility]. 09/02/2021 Bilateral MG 3D screening mammo w/cad, [facility]. Findings: The whole breast of both breasts, the axilla of both breasts and the retroareolar of both breasts were scanned. No solid or cystic masses are identified.. Overall Assessment: Negative, BI-RAD 1 Management: Screening Mammogram of both breasts in 1 year. A clinical breast exam by your physician is recommended on an annual basis and results should be correlated with mammographic findings. Electronically signed and approved by: Victor Hugo Wilhelm M.D. Radiologis
== END | disposition home or self-care (01) ==
LOC: RADUSWWP 09:49
PROVIDERS: ATTEND Family Medicine
DX: R92.8 Other abnormal and inconclusive findings on diagnostic imaging of breast (principal); Z78.0 Asymptomatic menopausal state; Z80.3 Family history of malignant neoplasm of breast

== ENCOUNTER 2022-05-31 03:20 | Emergency (ER) | payer MEDICARE, OTHER ==
[2022-05-31 03:25] VITALS: BP 125/64; PULSE 79; RESP 16; TEMP 97.4
[2022-05-31] MEDS ORDERED: MORPHINE SULFATE 4 MG/ML SYRINGE IM STA (03:50)
[2022-05-31] MEDS ORDERED: ACET/COD 300 MG/30 MG STARTER PACK 6 TAB BTL PO STA (03:51)
--- NOTE | 2022-05-31 04:17 | ED ---
ENT HPI - General Chief complaint: Dental/Oral Stated complaint: Dental pain Time Seen by Provider: 05/31/22 03:42 Source: patient, EMS Mode of arrival: EMS Limitations: no limitations - History of Present Illness Initial comments: 77-year-old female presents emergency room reporting dental pain. States that she has had a history of dentalgia and is following with a dentist at this time. She is scheduled to have several extractions done later this month. Her primary care doctor has her on Gil[place]ts at this time for pain however she is unable to fill her prescription until Wednesday. States that she has not taken her medications in the past 1.5 days. States that the pain was so severe this evening that she called an ambulance. Denies any change in the quality of the pain. No difficulty swallowing. No fevers. Denies chest pain or shortness of breath. No other alleviating, precipitating or modifying factors - Related Data Home Medications Medication Instructions Recorded Confirmed QUEtiapine [SEROquel] 100 mg PO HS 12/07/19 02/23/21 clonazePAM [KlonoPIN] 1 mg PO BID PRN 12/07/19 02/23/21 HYDROcodone/APAP 7.5-325MG [[place] 1 tab PO Q8HR PRN 02/19/20 02/23/21 7.5-325] DULoxetine HCL [Cymbalta] 60 mg PO DAILY 05/28/20 02/23/21 Aspirin 325 mg PO DAILY PRN 02/23/21 02/23/21 Previous Rx's Medication Instructions Recorded Sulfamethox-Tmp 800-160Mg [Bactrim 1 each PO BID #10 tab 02/26/21 DS 800-160 mg] Allergies Allergy/AdvReac Type Severity Reaction Status Date / Time iodine Allergy Anaphylaxis Verified 06/23/21 17:49 shellfish derived [Shellfish] Allergy Anaphylaxis Verified 06/23/21 17:49 Review of Systems ROS Statement: Those systems with pertinent positive or pertinent negative responses have been documented in the HPI. ROS Other: All systems not noted in ROS Statement are negative. Past Medical History Past Medical History: COPD, GERD/Reflux, Osteoarthritis (OA) Additional Past Medical History / Comment(s): Chronic back pain, hx hemorrhoids, hx gastric ulcer. Anemic. History of Any Multi-Drug Resistant Organisms: None Reported Past Surgical History: Bowel Resection, Hernia Repair Additional Past Surgical History / Comment(s): Hemorrhoidectomy, gallstones removed, cataracts removed. Past Anesthesia/Blood Transfusion Reactions: No Reported Reaction Past Psychological History: Anxiety, Depression Smoking Status: Current every day smoker Past Alcohol Use History: Occasional Past Drug Use History: None Reported - Past Family History Mother Family Medical History: No Reported History Father Family Medical History: Cancer Additional Family Medical History / Comment(s): Lung cancer at age of 75. Sister(s) Family Medical History: Cancer General Exam Limitations: no limitations General appearance: alert, in no apparent distress Head exam: Present: atraumatic, normocephalic, normal inspection Eye exam: Present: normal appearance, PERRL, EOMI. Absent: scleral icterus, conjunctival injection, periorbital swelling ENT exam: Present: mucous membranes moist, other (several extracted teeth. Patient only has a few teeth left at this time, each of which appears dusky saenz with caries) Neck exam: Present: normal inspection, other (no signs of ludwigs). Absent: tenderness, meningismus, lymphadenopathy Respiratory exam: Present: normal lung sounds bilaterally. Absent: respiratory distress, wheezes, rales, rhonchi, stridor Cardiovascular Exam: Present: regular rate, normal rhythm, normal heart sounds. Absent: systolic murmur, diastolic murmur, rubs, gallop, clicks GI/Abdominal exam: Present: soft, normal bowel sounds. Absent: distended, tenderness, guarding, rebound, rigid Extremities exam: Present: normal inspection, full ROM, normal capillary refill. Absent: tenderness, pedal edema, joint swelling, calf tenderness Back exam: Present: normal inspection Neurological exam: Present: alert, oriented X3, CN II-XII intact Psychiatric exam: Present: normal affect, normal mood Skin exam: Present: warm, dry, intact, normal color. Absent: rash Course Vital Signs 05/31/22 03:21 Temperature 97.4 F L Pulse Rate 79 Respiratory 16 Rate Blood Pressure 125/64 O2 Sat by Pulse 100 Oximetry Medical Decision Making - Medical Decision Making Was pt. sent in by a medical professional or institution (, PA, BIT SANDER, urgent care, hospital, or retirement...) When possible be specific @ -No Did you speak to anyone other than the patient for history (EMS, parent, family, police, friend...)? What history was obtained from this source @ -No Did you review nursing and triage notes (agree or disagree)? Why? @ -I reviewed and agree with nursing and triage notes Were old charts reviewed (outside hosp., previous admission, EMS record, old EKG, old radiological studies, urgent care reports/EKG's, retirement records)? Report findings @ -No old charts were reviewe Differential Diagnosis (chest pain, altered mental status, abdominal pain women, abdominal pain men, vaginal bleeding, weakness, fever, dyspnea, syncope, headache, dizziness, GI bleed, back pain, seizure, CVA, palpatations, mental health, musculoskeletal)? @ -dentalgia, dental caries, dental abscess, ludwigs, allergic reaction EKG interpreted by me (3pts min.). @ -No X-rays interpreted by me (1pt min.). @ -No CT interpreted by me (1pt min.). @ -None done U/S interpreted by me (1pt. min.). @ -None done What testing was considered but not performed or refused? (CT, X-rays, U/S, labs)? Why? @ -None What meds were considered but not given or refused? Why? @ -None Did you discuss the management of the patient with other professionals (professionals i.e. , PA, BIT SANDER, lab, RT, psych nurse, social work therapist, inspector and tester, teacher, custodial officer, case resolution specialist)? Give summary @ -No Was smoking cessation discussed for >3mins.? @ -No Was critical care preformed (if so, how long)? @ -No Were there social determinants of health that impacted care today? How? (Homelessness, low income, unemployed, alcoholism, drug addiction, transportation, low edu. Level, literacy, decrease access to med. care, custodial, rehab)? @ -No Was there de-escalation of care discussed even if they declined (Discuss DNR or withdrawal of care, Hospice)? DNR status @ -No What co-morbidities impacted this encounter? (DM, HTN, Smoking, COPD, CAD, Cancer, CVA, ARF, Chemo, Hep., AIDS, mental health diagnosis, sleep apnea, morbid obesity)? @ -None Was patient admitted / discharged? Hospital course, mention meds given and route , prescriptions, significant lab abnormalities, going to OR and other pertinent info. @ -Upon arrival patient was placed into room 1. History and physical performed. Patient was given a dose of pain medications in the emergency room. Will be discharged home with a prescription for Tylenol 3's. Instructed take medication as directed follow-up with her dentist her routinely scheduled appointment. Return for any new or worsening symptoms. Patient discharged home in stable condition Undiagnosed new problem with uncertain prognosis? @ -No Drug Therapy requiring intensive monitoring for toxicity (Heparin, Nitro, Insulin, Cardizem)? @ -No Were any procedures done? @ -No Diagnosis/symptom? @ -acute exacerbation of chronic dentalgia Acute, or Chronic, or Acute on Chronic? @ -acute on chronic Uncomplicated (without systemic symptoms) or Complicated (systemic symptoms)? @ -uncomplicated Side effects of treatment? @ -allergic reaction, sedation, nausea and vomiting Exacerbation, Progression, or Severe Exacerbation? @ -No Poses a threat to life or bodily function? How? (Chest pain, [place], [place], pneumonia, PE, COPD, DKA, ARF, appy, cholecystitis, CVA, Diverticulitis, Homicidal, Suicidal, threat to staff... and all critical care pts) @ -No Disposition Clinical Impression: Dentalgia Disposition: HOME SELF-CARE Condition: Stable Instructions (If sedation given, give patient instructions): Toothache (ED) Additional Instructions: Please use the Tylenol threes sparingly until you can fill your prescription for Gilberts. Follow up with your dentist for your scheduled procedure and return for any new or worsening symptoms Is patient prescribed a controlled substance at d/c from ED?: No Referrals: Markus Nicole MD [Primary Care Provider] - 1-2 days Time of Disposition: 04:17
== END 2022-05-31 04:34 | disposition home or self-care (01) ==
LOC: EC 03:20
DX: K02.9 Dental caries, unspecified (principal); J44.9 Chronic obstructive pulmonary disease, unspecified; F17.200 Nicotine dependence, unspecified, uncomplicated; F32.A Depression, unspecified; F41.9 Anxiety disorder, unspecified; Z79.899 Other long term (current) drug therapy; Z88.8 Allergy status to other drugs, medicaments and biological substances; Z91.013 Allergy to seafood
CPT/HCPCS: 99283; 96372; J2270

== ENCOUNTER → 2022-09-03 | Outpatient (CLI) | payer MEDICARE, OTHER ==
--- NOTE | 2022-09-03 11:49 | MM ---
Reason for Exam: Screening (asymptomatic). Last screening mammogram was performed 12 month(s) ago. Patient History: Menarche at age 11. First Full-Term at age 20. Left ovary removed at age 33. Right ovary removed at age 33. Hysterectomy at age 33. Postmenopausal. 1998, Benign Excisional Biopsy on the left side. Sister had breast cancer. Risk Values: Kristen 5 year model risk: 3.9%. NCI Lifetime model risk: 6.9%. Prior Study Comparison: 12/31/2017 Bilateral Screening Mammogram, [facility]. 01/02/2019 Bilateral Screening Mammogram, [facility]. 09/02/2021 Bilateral MG 3D screening mammo w/cad, [facility]. Tissue Density: The breast tissue is heterogeneously dense. This may lower the sensitivity of mammography. Findings: Analyzed By CAD. There is no suspicious group of microcalcifications or new suspicious mass in either breast. Overall Assessment: Negative, BI-RAD 1 Management: Screening Mammogram of both breasts in [address] [facility] will attempt to contact patient to return for supplemental views and ultrasound if indicated. Patient should continue monthly self-breast exams. A clinical breast exam by your physician is recommended on an annual basis. This exam should not preclude additional follow-up of suspicious palpable abnormalities. Note on Kristen scores and lifetime risk: 1. A Kristen score greater than 3% is considered moderate risk. If this is the case, consider specialist referral to assess eligibility for a risk reducing agent. 2. If overall lifetime risk for the development of breast cancer is 20% or higher, the patient may qualify for future screening with alternating mammogram and breast MRI. Electronically signed and approved by: Pa Mosley DO
== END ==
LOC: RADMAMWWP 09:42
PROVIDERS: ATTEND Family Medicine
DX: Z12.31 Encounter for screening mammogram for malignant neoplasm of breast (principal); Z78.0 Asymptomatic menopausal state; Z80.3 Family history of malignant neoplasm of breast
CPT/HCPCS: 77063; 77067

== ENCOUNTER 2023-06-14 07:36 | Emergency (ER) | payer MEDICARE, OTHER ==
[2023-06-14 09:09] LABS: ALT 26 U/L (4-34); AST 34 U/L (14-36); African American GFR (CKD) 85 (>60 ml/min/1.73 sqM); Albumin 3.8 g/dL (3.5-5.0); Alkaline Phosphatase 88 U/L (38-126); Anion Gap 8 mmol/L; Blood Urea Nitrogen 9 mg/dL (7-17); Calcium 9.2 mg/dL (8.4-10.2); Carbon Dioxide 24 mmol/L (22-30); Chloride 111 mmol/L (98-107); Glucose 82 mg/dL (74-99); Non-African American GFR(CKD) 74 (>60 ml/min/1.73 sqM); Potassium 3.5 mmol/L (3.5-5.1); Sodium 143 mmol/L (137-145); Total Bilirubin 0.2 mg/dL (0.2-1.3); Total Protein 6.7 g/dL (6.3-8.2)
[2023-06-14 09:10] LABS: Anisocytosis Slight; Basophils % (A) 1 %; Eosinophils # (A) 0.2 k/uL (0-0.7); Eosinophils % (A) 4 %; HCT 33.5 % (34.0-46.0); HGB 10.2 gm/dL (11.4-16.0); Hypochromasia Moderate; Lymphocytes # (A) 1.8 k/uL (1.0-4.8); Lymphocytes % (A) 39 %; MCH 27.3 pg (25.0-35.0); MCHC 30.6 g/dL (31.0-37.0); MCV 89.1 fL (80.0-100.0); Mean Platelet Volume 7.5; Monocytes # (A) 0.3 k/uL (0-1.0); Monocytes % (A) 7 %; Neutrophils % (A) 45 %; Platelet Count 263 k/uL (150-450); RBC 3.76 m/uL (3.80-5.40); RDW 16.5 % (11.5-15.5); WBC 4.5 k/uL (3.8-10.6)
[2023-06-14 09:17] LABS: NT-Pro-B-Type Natriuretic Pept 277 pg/mL
[2023-06-14] MEDS: HYDROcodone/APAP 10-325MG 1 EACH TAB PO ONE (09:29)
--- NOTE | 2023-06-14 09:30 | XR ---
EXAMINATION TYPE: XR chest 2V DATE OF EXAM: 06/14/2023 9:26 AM CLINICAL INDICATION:Female, 78 years old with history of Weakness; COMPARISON: Chest radiographs from 06/23/2021 TECHNIQUE: XR chest 2V Frontal and lateral views of the chest. FINDINGS: Lungs/Pleura: There is flattening of the diaphragm with increased lucency of the lungs. No evidence o f pneumothorax, pleural effusion or focal consolidation. Pulmonary vascularity: Unremarkable. Heart/mediastinum: Cardiomediastinal silhouette is unremarkable. Musculoskeletal: No acute osseous pathology. IMPRESSION: 1. No acute cardiopulmonary disease process. 2. COPD changes.
--- NOTE | 2023-06-14 09:50 | CT ---
EXAMINATION TYPE: CT abdomen pelvis wo con DATE OF EXAM: 06/14/2023 COMPARISON: 02/24/2020 INDICATION: Abdominal pain, swelling, lower extremity swelling, DLP: 281.6 mGycm, Automated exposure control for dose reduction was used. CONTRAST: 0 mL of . Study performed without Oral Contrast TECHNIQUE: Axial images were obtained from above the diaphragm to the pubic rami in the axial plane a t 5 mm thick sections. Reconstructed images are reviewed on the computer in the coronal plane. FINDINGS: Limited CT sections are obtained the lung bases. The lung bases are clear. CT ABDOMEN: Liver: Biliary dilatation is evident. Findings were present in 2020. Spleen: Normal Pancreas: There is a dilated pancreatic duct measuring 0.6 cm in the distal body proximal tail pancre as. Findings were present in 2020. Adrenal glands: The adrenal glands are normal. Gallbladder: Normal Kidneys: No masses are evident. No hydronephrosis is present. No cysts are present. No renal stone s are evident. Aorta: Normal Inferior vena cava: Normal. CT PELVIS: Loops of bowel within the abdomen and pelvis are normal. Scattered diverticuli within the sigmoid colon. No suspicious inflammatory changes to suggest acute diverticulitis. Appendix: Not identified. No dilated tubular structure or inflammatory changes. Urinary bladder: Normal. Genitourinary structures: Uterus and ovaries are not identified. Osseous structures: No suspicious lytic or sclerotic lesions. IMPRESSION: 1. Diverticulosis without acute diverticulitis. 2. Chronic dilated biliary pancreatic ducts, similar to 2020 exam
--- NOTE | 2023-06-14 10:12 | ED ---
General Adult HPI - General Chief complaint: Weakness Stated complaint: Headache,Bilateral leg swelling Time Seen by Provider: 06/14/23 07:45 Source: patient Mode of arrival: ambulatory Limitations: no limitations - History of Present Illness Initial comments: 78-year-old female presents emergency department with multiple complaints. Patient states that she has noticed some bilateral lower extremity swelling. Denies history of congestive heart failure. No history of DVT or PE. She does not take any diuretics. She does admit to some lower abdominal pain with distention. No history of liver disease. Denies any kidney disease. No changes in her urination or bowel habits. No black or bloody stools. Patient also reports to chronic migraine. Denies fevers or chills. No neck pain or stiffness. Patient normally takes daily medications prescribed by her primary care doctor however states that she is currently in between primary care doctors and has not gotten her medications filled in months. Requesting refills. No other alleviating, precipitating or modifying factors - Related Data Home Medications Medication Instructions Recorded Confirmed HYDROcodone/APAP 7.5-325MG [[place] 1 tab PO TID 02/19/20 06/14/23 7.5-325] Previous Rx's Medication Instructions Recorded DULoxetine HCL [Cymbalta] 30 mg PO HS #30 cap 06/14/23 QUEtiapine [SEROquel] 100 mg PO HS #30 tab 06/14/23 clonazePAM [KlonoPIN] 1 mg PO BID PRN #6 tab 06/14/23 Allergies Allergy/AdvReac Type Severity Reaction Status Date / Time iodine Allergy Anaphylaxis Verified 06/14/23 10:21 shellfish derived [Shellfish] Allergy Anaphylaxis Verified 06/14/23 10:21 Review of Systems ROS Statement: Those systems with pertinent positive or pertinent negative responses have been documented in the HPI. ROS Other: All systems not noted in ROS Statement are negative. Past Medical History Past Medical History: COPD, GERD/Reflux, Osteoarthritis (OA) Additional Past Medical History / Comment(s): Chronic back pain, hx hemorrhoids, hx gastric ulcer. Anemic. History of Any Multi-Drug Resistant Organisms: None Reported Past Surgical History: Bowel Resection, Hernia Repair Additional Past Surgical History / Comment(s): Hemorrhoidectomy, gallstones removed, cataracts removed. Past Anesthesia/Blood Transfusion Reactions: No Reported Reaction Past Psychological History: Anxiety, Depression Smoking Status: Current every day smoker Past Alcohol Use History: Occasional Past Drug Use History: None Reported - Past Family History Mother Family Medical History: No Reported History Father Family Medical History: Cancer Additional Family Medical History / Comment(s): Lung cancer at age of 75. Sister(s) Family Medical History: Cancer General Exam Limitations: no limitations General appearance: alert, in no apparent distress Head exam: Present: atraumatic, normocephalic, normal inspection Eye exam: Present: normal appearance, PERRL, EOMI. Absent: scleral icterus, conjunctival injection, periorbital swelling ENT exam: Present: normal exam, mucous membranes moist Neck exam: Present: normal inspection. Absent: tenderness, meningismus, lymphadenopathy Respiratory exam: Present: normal lung sounds bilaterally. Absent: respiratory distress, wheezes, rales, rhonchi, stridor Cardiovascular Exam: Present: regular rate, normal rhythm, normal heart sounds. Absent: systolic murmur, diastolic murmur, rubs, gallop, clicks GI/Abdominal exam: Present: soft, normal bowel sounds. Absent: distended, tenderness, guarding, rebound, rigid Extremities exam: Present: normal inspection, full ROM, normal capillary refill. Absent: tenderness, pedal edema, joint swelling, calf tenderness Back exam: Present: normal inspection Neurological exam: Present: alert, oriented X3, CN II-XII intact Psychiatric exam: Present: normal affect, normal mood Skin exam: Present: warm, dry, intact, normal color. Absent: rash Course Vital Signs 06/14/23 06/14/23 06/14/23 07:43 08:47 10:29 Temperature 97.9 F 97.2 F L Pulse Rate 69 66 64 Respiratory 18 18 16 Rate Blood Pressure 146/64 100/60 155/82 O2 Sat by Pulse 99 100 98 Oximetry Medical Decision Making - Medical Decision Making Was pt. sent in by a medical professional or institution (, PA, HR CONSULTANT, urgent care, hospital, or care home...) When possible be specific @ -No Did you speak to anyone other than the patient for history (EMS, parent, family, police, friend...)? What history was obtained from this source @ -No Did you review nursing and triage notes (agree or disagree)? Why? @ -I reviewed and agree with nursing and triage notes Were old charts reviewed (outside hosp., previous admission, EMS record, old EKG, old radiological studies, urgent care reports/EKG's, care home records)? Report findings @ -I reviewed patient's previous ED visit. She has been seen several times for chronic migraine Differential Diagnosis (chest pain, altered mental status, abdominal pain women, abdominal pain men, vaginal bleeding, weakness, fever, dyspnea, syncope, headache, dizziness, GI bleed, back pain, seizure, CVA, palpatations, mental health, musculoskeletal)? @ -Peripheral edema, medication side effect, DVT, congestive heart failure EKG interpreted by me (3pts min.). @ -Yes and demonstrates sinus rhythm with a rate of 65. Parable 149. QRS 77. QTc of 393. No acute ST segment elevations or depressions X-rays interpreted by me (1pt min.). @ -Yes and demonstrates no acute process CT interpreted by me (1pt min.). @ -Yes and demonstrates no vascular compression or etiologies of the patient's left lower abdominal pain U/S interpreted by me (1pt. min.). @ -None done What testing was considered but not performed or refused? (CT, X-rays, U/S, labs)? Why? @ -None What meds were considered but not given or refused? Why? @ -None Did you discuss the management of the patient with other professionals (professionals i.e. , PA, HR CONSULTANT, lab, RT, psych nurse, psychosocial rehabilitation counselor, brick handler, teacher, chief strategy officer, community case manager)? Give summary @ -No Was smoking cessation discussed for >3mins.? @ -No Was critical care preformed (if so, how long)? @ -No Were there social determinants of health that impacted care today? How? (Homelessness, low income, unemployed, alcoholism, drug addiction, transportation, low edu. Level, literacy, decrease access to med. care, half-way, rehab)? @ -No Was there de-escalation of care discussed even if they declined (Discuss DNR or withdrawal of care, Hospice)? DNR status @ -No What co-morbidities impacted this encounter? (DM, HTN, Smoking, COPD, CAD, Cancer, CVA, ARF, Chemo, Hep., AIDS, mental health diagnosis, sleep apnea, morbid obesity)? @ -Chronic cephalgia Was patient admitted / discharged? Hospital course, mention meds given and route, prescriptions, significant lab abnormalities, going to OR and other pertinent info. @ -Upon arrival patient was seen and evaluated in room 19. Thorough history and physical exam was performed. IV access was established. Laboratory studies are conducted. Chest x-ray and CT of the abdomen pelvis was performed due to patient's reported left lower quadrant pain with bilateral lower extremity swelling. Results are discussed with the patient. Patient has very minimal lower extremity swelling and therefore I do not recommend a diuretic at this time. I do refill the patient's home prescriptions. Patient will be discharged home and instructed to wear compression stockings. Follow-up with her primary care doctor for further management of her reported swelling and return for any new or worsening symptoms. Patient agreeable plan she is discharged in stable condition Undiagnosed new problem with uncertain prognosis? @ -Yes Drug Therapy requiring intensive monitoring for toxicity (Heparin, Nitro, Insulin, Cardizem)? @ -No Were any procedures done? @ -No Diagnosis/symptom? @ -Subjective bilateral lower extremity swelling, acute left lower quadrant pain Acute, or Chronic, or Acute on Chronic? @ -Acute Uncomplicated (without systemic symptoms) or Complicated (systemic symptoms)? @ -Complicated Side effects of treatment? @ -No Exacerbation, Progression, or Severe Exacerbation? @ -No Poses a threat to life or bodily function? How? (Chest pain, [place], [place], pneumonia, PE, COPD, DKA, ARF, appy, cholecystitis, CVA, Diverticulitis, Homicidal, Suicidal, threat to staff... and all critical care pts) @ -No - Lab Data Result diagrams: 06/14/23 08:43 06/14/23 08:43 Lab Results 06/14/23 06/14/23 06/14/23 Range/Units 08:43 08:43 08:43 WBC 4.5 (3.8-10.6) k/uL RBC 3.76 L (3.80-5.40) m/uL Hgb 10.2 L (11.4-16.0) gm/dL Hct 33.5 L (34.0-46.0) % MCV 89.1 (80.0-100.0) fL MCH 27.3 (25.0-35.0) pg MCHC 30.6 L (31.0-37.0) g/dL RDW 16.5 H (11.5-15.5) % Plt Count 263 (150-450) k/uL MPV 7.5 Neutrophils % 45 % Lymphocytes % 39 % Monocytes % 7 % Eosinophils % 4 % Basophils % 1 % Neutrophils # 2.0 (1.3-7.7) k/uL Lymphocytes # 1.8 (1.0-4.8) k/uL Monocytes # 0.3 (0-1.0) k/uL Eosinophils # 0.2 (0-0.7) k/uL Basophils # 0.0 (0-0.2) k/uL Hypochromasia Moderate Anisocytosis Slight Sodium 143 (137-145) mmol/L Potassium 3.5 (3.5-5.1) mmol/L Chloride 111 H (98-107) mmol/L Carbon Dioxide 24 (22-30) mmol/L Anion Gap 8 mmol/L BUN 9 (7-17) mg/dL Creatinine 0.77 (0.52-1.04) mg/dL Est GFR (CKD-EPI)AfAm 85 (>60 ml/min/1.73 sqM) Est GFR (CKD-EPI)NonAf 74 (>60 ml/min/1.73 sqM) Glucose 82 (74-99) mg/dL Calcium 9.2 (8.4-10.2) mg/dL Total Bilirubin 0.2 (0.2-1.3) mg/dL AST 34 (14-36) U/L ALT 26 (4-34) U/L Alkaline Phosphatase 88 (38-126) U/L Troponin I <0.012 (0.000-0.034) ng/mL NT-Pro-B Natriuret Pep 277 pg/mL Total Protein 6.7 (6.3-8.2) g/dL Albumin 3.8 (3.5-5.0) g/dL TSH 1.650 (0.465-4.680) mIU/L Disposition Clinical Impression: Abdominal pain, Diverticulosis, Peripheral edema, Dilation of biliary tract Disposition: HOME SELF-CARE Condition: Stable Instructions (If sedation given, give patient instructions): Edema (ED) Additional Instructions: I recommend that you wear compression stockings. Follow-up with your primary care doctor and return for any new or worsening symptoms Prescriptions: DULoxetine HCL [Cymbalta] 30 mg PO HS #30 cap clonazePAM [KlonoPIN] 1 mg PO BID PRN #6 tab PRN Reason: Anxiety QUEtiapine [SEROquel] 100 mg PO HS #30 tab Is patient prescribed a controlled substance at d/c from ED?: Yes When asked, does pt state using other controlled substances?: No If prescribed controlled substance>3 days was MAPS reviewed?: Prescribed <3 Days Referrals: Brigido Jensen MD [STAFF PHYSICIAN] - 1-2 days Solis Royal MD [STAFF PHYSICIAN] - 1-2 days Fely Sears MD [STAFF PHYSICIAN] - 1-2 days Onel Munson MD [STAFF PHYSICIAN] - 1-2 days Time of Disposition: 10:12
[2023-06-14 10:33] VITALS: BP 155/82; PULSE 64; RESP 16; TEMP 97.2
== END 2023-06-14 10:36 | disposition home or self-care (01) ==
LOC: EC 07:36
DX: K57.30 Diverticulosis of large intestine without perforation or abscess without bleeding (principal); R60.0 Localized edema; K83.8 Other specified diseases of biliary tract; F17.200 Nicotine dependence, unspecified, uncomplicated; Z91.041 Radiographic dye allergy status; Z91.013 Allergy to seafood
CPT/HCPCS: 36415; 71046; 74176; 80053; 83880; 84443; 84484; 85025; 93005; 99285

== ENCOUNTER → 2023-12-30 | Outpatient (CLI) | payer MEDICARE, OTHER ==
[2023-12-30 11:40] LABS: African American GFR (CKD) 84 (>60 ml/min/1.73 sqM); Blood Urea Nitrogen 13 mg/dL (7-17); Non-African American GFR(CKD) 73 (>60 ml/min/1.73 sqM)
--- NOTE | 2023-12-30 12:47 | CT ---
EXAMINATION TYPE: CT abdomen pelvis w con DATE OF EXAM: 12/30/2023 COMPARISON: 06/14/2023 CLINICAL INDICATION: Female, 78 years old with history of R10.30 LOWER ABDOMINAL PAIN; PHH, abd pain TECHNIQUE: Performed with Oral Contrast and with IV Contrast, patient injected with 80 mL of Isovue 300. CT DLP: 453 mGycm Automated exposure control for dose reduction was used. FINDINGS: The lung bases are clear. There is surgical absence of the gallbladder. There is stable marked intra and extrahepatic biliary d uctal dilatation. There is no focal mass or organomegaly involving the liver, pancreas, spleen or adrenal glands. There is no solid renal mass or hydronephrosis and there is homogeneous contrast enhancement of the r enal parenchyma. The caliber the abdominal aorta is normal is no retroperitoneal adenopathy or hemorr cally. The bowel loops are normal in caliber and there is no evidence of dilatation or obstruction. No infla mmatory changes are identified in the bowel wall or mesentery. There is moderate diverticulosis of th e left colon and sigmoid colon but no CT evidence of diverticulitis. There is no free intraperitoneal air or fluid. No pelvic mass, free fluid, abscess or adenopathy. There is surgical absence of the uterus. The osseous structures and soft tissues are intact. IMPRESSION: 1. Stable marked intra and extra hepatic biliary ductal dilatation. 2. Diverticulosis of the descending and sigmoid colon without acute diverticulitis. 3. No acute changes within the abdomen or pelvis. 4. No significant interval change compared to previous X-Ray Heather Henson, , 12/30/2023 12:44 PM
== END | disposition home or self-care (01) ==
LOC: RADCTMAIN 10:30
PROVIDERS: ATTEND Family Medicine
DX: K83.8 Other specified diseases of biliary tract (principal); R10.30 Lower abdominal pain, unspecified; K57.30 Diverticulosis of large intestine without perforation or abscess without bleeding
CPT/HCPCS: 36415; 74177; 82565; 84520

== ENCOUNTER → 2024-08-14 | Outpatient (CLI) | payer MEDICARE, OTHER ==
[2024-08-14 16:31] LABS: Basophils # (A) 0.06 X 10*3/uL (0.00-0.10); Basophils % (A) 1.6 %; Eosinophils # (A) 0.17 X 10*3/uL (0.04-0.35); Eosinophils % (A) 4.6 %; HCT 30.5 % (37.2-46.3); HGB 9.1 g/dL (12.0-15.0); Immature Grans, Automated 0 %; Lymphocytes # (A) 1.58 X 10*3/uL (0.90-5.00); Lymphocytes % (A) 43.2 %; MCH 25.9 pg (27.0-32.0); MCHC 29.8 g/dL (32.0-37.0); MCV 86.9 FL (80.0-97.0); Mean Platelet Volume 10.6 FL (9.5-12.2); Monocytes # (A) 0.52 X 10*3/uL (0.20-1.00); Monocytes % (A) 14.2 %; NRBC Per 100 WBC 0 X 10*3/uL (0.00-0.01); Neutrophils # (A) 1.33 X 10*3/uL (1.80-7.70); Neutrophils % (A) 36.4 %; Platelet Count 282 X 10*3/uL (140-440); RBC 3.51 X 10*6/uL (4.10-5.20); RDW 18.9 % (11.5-14.5); WBC 3.66 X 10*3/uL (4.50-10.00)
[2024-08-14 16:49] LABS: % Iron Saturation 5.12 (12.00-45.00); BUN/Creat Ratio 14.38 Ratio (12.00-20.00); Blood Urea Nitrogen 11.5 mg/dL (9.0-27.0); C Reactive Protein <0.30 mg/dL (0.00-0.80); Carbon Dioxide 21.6 mmol/L (21.6-31.8); Chloride 113 mmol/L (96-109); Chol/HDL Ratio 1.88 Ratio; Creatine Kinase 83 U/L (26-186); Ferritin 7.6 ng/mL (10.0-291.0); Glucose 49 mg/dL (70-110); Iron 26 UG/DL (50-170); LDL Cholesterol,Calculated 54.7 mg/dL (0.0-131.0); Magnesium 1.9 mg/dL (1.5-2.4); Potassium 3.8 mmol/L (3.5-5.5); Sodium 144 mmol/L (135-145); T4, Free (Free Thyroxine) 0.76 ng/dL (0.80-1.80); Total Iron Binding Capacity 508 UG/DL (228-460); Uric Acid 4.4 mg/dL (2.9-7.7); VLDL Calculation 13.88 mg/dL (5.00-40.00)
[2024-08-14 16:50] LABS: ALT 34 U/L (8-44); AST 29 U/L (13-35); Albumin/Globulin Ratio 1.67 Ratio (1.60-3.17); Alkaline Phosphatase 111 U/L (41-126); Calcium 8.6 mg/dL (8.7-10.3); Globulin 2.4 g/dL (1.6-3.3); Total Bilirubin <0.2 mg/dL (0.3-1.2); Total Protein 6.4 g/dL (6.2-8.2)
[2024-08-14 16:51] LABS: Erythrocyte Sedimentation Rate 5 mm/Hr (0-30)
[2024-08-14 20:36] LABS: Cyclic Citrull Pep IgG Unit <1.5 U/mL (<=3.9); Cyclic Citrullinated Pep IgG Negative
== END | disposition home or self-care (01) ==
LOC: LABWHC1 11:42
PROVIDERS: ATTEND Family Medicine
DX: M13.0 Polyarthritis, unspecified (principal); M79.7 Fibromyalgia; D50.9 Iron deficiency anemia, unspecified; R41.3 Other amnesia
CPT/HCPCS: 36415; 80053; 80061; 82550; 82607; 82728; 83540; 83550; 83735; 84165; 84439; 84443; 84481; 84550; 85025; 85652; 86038; 86039; 86140; 86200; 86334